=== PATIENT | male | born 1975 | race American Indian/Alaskan Native ===

== ENCOUNTER 2021-03-13 07:49 | Outpatient (REF) | payer MEDICARE, MEDICAID, SELFPAY ==
--- NOTE | 2021-03-13 08:00 | EEG_ITS ---
This is a 16-channel EEG with an EKG lead. The patient is reported awake and drowsy during the tracing. Background EEG rhythm is about 8 to 10 hertz, 5 to 30 microvolt posteriorly and lower amplitude fast anteriorly. Photic stimulation and hyperventilation were not performed. No definite sharp wave spikes or paroxysmal tendency asymmetry or asymmetry noted. Cardiac lead revealed tachycardia with a rate of about 90 per minute. IMPRESSION: No significant abnormality noted on EEG. MD BRIANNA Han/SUSI / [id number]
== END 2021-03-13 07:50 | disposition home or self-care (01) ==
LOC: HO.NEURO 07:49
PROVIDERS: PCP Hospitalist; Visit Provider Hospitalist
DX: Z13.858 Encounter for screening for other nervous system disorders (principal)
CPT/HCPCS: 95816

== ENCOUNTER → 2023-10-14 08:22 | Outpatient (BNVA) | payer MEDICARE, SELFPAY | PROVIDERS: PCP Hospitalist; Visit Provider Nurse Practitioner Family ==

== ENCOUNTER 2024-03-20 10:26 | Day surgery (SDC) | payer MEDICARE, MEDICAID, SELFPAY ==
[2024-03-16 13:11] VITALS: BMI 27.1
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
[2024-03-20 11:12] VITALS: BP 169/87; PULSE 90; RESP 18; TEMP 36.6; O2SAT 98
[2024-03-20 11:20] LABS: Glucose, Whole Blood 98 mg/dL (60-115)
[2024-03-20] MEDS: Lactated Ringers 1,000 ML 100 ML IVCONT (11:39)
[2024-03-20 11:53] LABS: Anion Gap 15 (12-20); Blood Urea Nitrogen 37 mg/dL (9-16); Calcium 9.3 mg/dL (8.4-10.2); Carbon Dioxide 18 mmol/L (22-29); Chloride 102 mmol/L (96-108); Creatinine Clr Calc Pharmacy 37.5; Estimated Glomerular Filt Rate 30; Glucose Fasting 104 mg/dL (60-99); Potassium 3.9 mmol/L (3.3-5.1); Sodium 131 mmol/L (135-145)
--- NOTE | 2024-03-20 12:48 | P.CONAN_ITS ---
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 Intracranial injury with loss of consciousness Polydipsia Type 2 diabetes mellitus Hyperlipidemia Chronic kidney disease (CKD) stage G3a/A1, moderately decreased glomerular filtration rate (GFR) between 45-59 mL/min/1.73 square meter and albuminuria creatinine ratio less than 30 mg/g Constipation Insomnia Schizoaffective disorder PTSD (post-traumatic stress disorder) Epilepsy Functional capacity: independent ambulation Family History Family history of problems with anesthesia: No Surgical History Surgical History Surgical history unknown History of Problems with Anesthesia: No Social History Social History Alcohol intake: former Patient Tobacco Use Status: Former Tobacco user Tobacco use type: Cigarette Substance Use Type: Crack/Cocaine and Marijuana Advance Directives: No Advance Directives Information Provided: Yes Meds Allergies Allergy/AdvReac Type Severity Reaction Status Date / Time No Known Allergies Allergy Verified 10/14/23 08:33 Active Medications: Current Medications Lactated Ringer's (Lr) 1,000 mls @ 100 mls/hr IVCONT .Q10H REHANA Last Admin: 03/20/24 11:39 Dose: 100 mls/hr Home Medications ?Medication ?Instructions ?Recorded ?Confirmed ?Last Taken ?Type amlodipine 10 mg tablet 10 mg PO DAILY 10/14/23 03/16/24 Unknown History atorvastatin 20 mg tablet 20 mg PO DAILY 10/14/23 03/16/24 Unknown History clonidine HCl 0.1 mg tablet 0.1 mg PO BID 10/14/23 03/20/24 03/20/24 07:00 History clozapine 100 mg tablet 100 mg PO DAILY 10/14/23 03/20/24 03/20/24 07:00 History diazepam 2 mg tablet 2 mg PO BID 10/14/23 03/20/24 03/20/24 07:00 History docusate sodium 100 mg capsule 100 mg PO DAILY 10/14/23 03/16/24 Unknown History (Colace) gemfibrozil 600 mg tablet 600 mg PO BID 10/14/23 03/16/24 Unknown History ketoconazole 2 % shampoo topical 10/14/23 Unknown History losartan 100 mg tablet 100 mg PO DAILY 10/14/23 03/16/24 Unknown History metformin 1,000 mg tablet 1,000 mg PO BID 10/14/23 03/16/24 Unknown History metoprolol tartrate 50 mg tablet 50 mg PO DAILY 10/14/23 03/16/24 Unknown History ondansetron HCl 4 mg tablet 4 mg PO Q8H PRN Nausea 10/14/23 03/16/24 Unknown History paliperidone palmitate 117 mg/0.75 117 mg IM Q30D 10/14/23 03/16/24 Unknown History mL intramuscular syringe (Invega Sustenna) pantoprazole 40 mg tablet,delayed 40 mg PO DAILY 10/14/23 03/16/24 Unknown History release sennosides 8.6 mg capsule (senna) 8.6 mg PO BEDTIME 10/14/23 03/16/24 Unknown History dapagliflozin propanediol 5 mg 5 mg PO DAILY 03/16/24 03/16/24 Unknown History tablet (Farxiga) Exam Height,Weight and Vital Signs: Height 5 ft 8 in Weight 80.739 kg Last Vital Signs Temp 97.8 F 03/20/24 11:12 Pulse 90 03/20/24 11:12 Resp 18 03/20/24 11:12 BP 169/87 H 03/20/24 11:12 Pulse Ox 98 03/20/24 11:12 O2 Del Method Room Air 03/20/24 11:12 Pertinent Lab Results Pertinent Lab Results: Laboratory Tests 03/20/24 03/20/24 11:13 11:17 Sodium 131 L Potassium 3.9 Chloride 102 Carbon Dioxide 18 L Anion Gap 15 BUN 37 H Creatinine 2.35 H Estim Creat Clear Calc 37.5 Estimated GFR 30 POC Glucose 98 Fasting Glucose 104 H Calcium 9.3 Airway Mallampati Class: II TM Dist: >3cm Neck ROM: Full Heart: RRR Lungs: CTA Assessment and Plan Assessment Anesthesia Assessment: Anesthesia Plan Discussed and Chart Reviewed Final Anesthetic Review Family History of Problems with Anesthesia: No History of Problems with Anesthesia: No NPO: Yes ASA Class: III Final Preanesthetic Review: Meds/Allgs Chart Reviewed, Consent Obtained/Reviewed and Anes Risks/Benef Reviewed Patient Risk: Low Procedure Risk: Low Anesthetic Plan Anesthetic Plan: MAC: Disposition: Standard PACU
--- NOTE | 2024-03-20 13:02 | P.HPSUR_ITS ---
Pre-Procedural Eval Section A - 24 Hr Update-Section A only Date of Service: 03/20/24 Section B - Complete if H&P > 30 days Chief Complaint: Encounter for screening for malignant neoplasm of Details of Present Illness: Intracranial injury with loss of consciousness Polydipsia Type 2 diabetes mellitus Hyperlipidemia Chronic kidney disease (CKD) stage G3a/A1, moderately decreased glomerular filtration rate (GFR) between 45-59 mL/min/1.73 square meter and albuminuria cr eatinine ratio less than 30 mg/g Constipation Insomnia Schizoaffective disorder PTSD (post-traumatic stress disorder) Epilepsy Allergies: Allergies Allergy/AdvReac Type Severity Reaction Status Date / Time No Known Allergies Allergy Verified 10/14/23 08:33 Review of Systems Review of Systems Comment: Limited ROS obtained Exam Surgical H&P Exam: Normal: HEENT, Normal: Heart, Normal: Lungs, Normal: Extremities, Normal: Abdomen, Normal: Skin and Normal: Neurological Plan Diagnosis/Plan: Unchanged I have reviewed the history and physical and performed a pertinent physical examination on my patient. No changes have occurred unless specified. Time Spent With Patient Time: Total time managing care of this patient today ____ minutes.
--- NOTE | 2024-03-20 13:28 | HO.ANESPROP2 ---
[facility] Past Medical History Medical History Resides in intermission coordinator care facility Intracranial injury with loss of consciousness Polydipsia Type 2 diabetes mellitus Hyperlipidemia Chronic kidney disease (CKD) stage G3a/A1, moderately decreased glomerular filtration rate (GFR) between 45-59 mL/min/1.73 square meter and albuminuria creatinine ratio less than 30 mg/g Constipation Insomnia Schizoaffective disorder PTSD (post-traumatic stress disorder) Epilepsy Functional capacity: independent ambulation Family History Family history of problems with anesthesia: No Surgical History Surgical History Surgical history unknown History of Problems with Anesthesia: No Social History Social History Alcohol intake: former Patient Tobacco Use Status: Former Tobacco user Tobacco use type: Cigarette Substance Use Type: Crack/Cocaine and Marijuana Advance Directives: No Advance Directives Information Provided: Yes Meds Allergies Allergy/AdvReac Type Severity Reaction Status Date / Time No Known Allergies Allergy Verified 10/14/23 08:33 Active Medications: Current Medications Lactated Ringer's (Lr) 1,000 mls @ 100 mls/hr IVCONT .Q10H REHANA Last Admin: 03/20/24 11:39 Dose: 100 mls/hr Naloxone HCl (Naloxone Hcl 0.4 Mg/Ml Vial) 0.04 mg IVPUSH Q5M PRN PRN Reason: Excessive sedation or RR < 8 Home Medications ?Medication ?Instructions ?Recorded ?Confirmed ?Last Taken ?Type amlodipine 10 mg tablet 10 mg PO DAILY 10/14/23 03/16/24 Unknown History atorvastatin 20 mg tablet 20 mg PO DAILY 10/14/23 03/16/24 Unknown History clonidine HCl 0.1 mg tablet 0.1 mg PO BID 10/14/23 03/20/24 03/20/24 07:00 History clozapine 100 mg tablet 100 mg PO DAILY 10/14/23 03/20/24 03/20/24 07:00 History diazepam 2 mg tablet 2 mg PO BID 10/14/23 03/20/24 03/20/24 07:00 History docusate sodium 100 mg capsule 100 mg PO DAILY 10/14/23 03/16/24 Unknown History (Colace) gemfibrozil 600 mg tablet 600 mg PO BID 10/14/23 03/16/24 Unknown History ketoconazole 2 % shampoo topical 10/14/23 Unknown History losartan 100 mg tablet 100 mg PO DAILY 10/14/23 03/16/24 Unknown History metformin 1,000 mg tablet 1,000 mg PO BID 10/14/23 03/16/24 Unknown History metoprolol tartrate 50 mg tablet 50 mg PO DAILY 10/14/23 03/16/24 Unknown History ondansetron HCl 4 mg tablet 4 mg PO Q8H PRN Nausea 10/14/23 03/16/24 Unknown History paliperidone palmitate 117 mg/0.75 117 mg IM Q30D 10/14/23 03/16/24 Unknown History mL intramuscular syringe (Invega Sustenna) pantoprazole 40 mg tablet,delayed 40 mg PO DAILY 10/14/23 03/16/24 Unknown History release sennosides 8.6 mg capsule (senna) 8.6 mg PO BEDTIME 10/14/23 03/16/24 Unknown History dapagliflozin propanediol 5 mg 5 mg PO DAILY 03/16/24 03/16/24 Unknown History tablet (Farxiga) Exam Height,Weight and Vital Signs: Height 5 ft 8 in Weight 80.739 kg Last Vital Signs Temp 97.8 F 03/20/24 11:12 Pulse 90 03/20/24 11:12 Resp 18 03/20/24 11:12 BP 169/87 H 03/20/24 11:12 Pulse Ox 98 03/20/24 11:12 O2 Del Method Room Air 03/20/24 11:12 Pertinent Lab Results Pertinent Lab Results: Laboratory Tests 03/20/24 03/20/24 11:13 11:17 Sodium 131 L Potassium 3.9 Chloride 102 Carbon Dioxide 18 L Anion Gap 15 BUN 37 H Creatinine 2.35 H Estim Creat Clear Calc 37.5 Estimated GFR 30 POC Glucose 98 Fasting Glucose 104 H Calcium 9.3 Airway Mallampati Class: III TM Dist: >3cm Neck ROM: Full Heart: RRR Lungs: CTA Assessment and Plan Assessment Anesthesia Assessment: Anesthesia Plan Discussed and Chart Reviewed Final Anesthetic Review Family History of Problems with Anesthesia: No History of Problems with Anesthesia: No ASA Class: III Final Preanesthetic Review: Meds/Allgs Chart Reviewed and Consent Obtained/Reviewed Patient Risk: Intermediate Procedure Risk: Low Anesthetic Plan Anesthetic Plan: MAC: Disposition: Standard PACU
--- NOTE | 2024-03-20 13:34 | HO.OPN-COLON ---
Colonoscopy Operative Note Operative Note Date of Service: 03/20/24 Narrative: Procedure: Colonoscopy Indication: Screening Endoscopist: Billie Carvalho MD Anesthesia Provider: Dr Iliana Abdul Anesthesia type: MAC Instrument: Olympus [id number]-[id number] Consent: Indication, risks vs benefits, and alternatives were discussed with the patient's guardian/father (Azucena) who gave informed consent over the phone to proceed. . EKG, pulse, pulse oximetry and blood pressure were monitored throughout the procedure. Please see anesthesia flowsheet. Procedure: The patient was brought to the procedure room and placed in the left lateral decubitus position. IV medications were administered by the anesthesia provider in attendance. A digital rectal exam was performed which was normal. A distal attachment cap was affixed to the tip of the colonoscope which was then inserted through the anus and advanced through the colon to the transverse colon at 70 cm. Solid stool in hepatic flexure precluded further advancement of the scope. The procedure was therefore terminated due to poor prep. The quality of the prep was BBPS: N/A+0+2 = inadequate Limitations: Poor prep. Findings: Mucosa: Copious liquid stool present in left colon which was irrigated and suctioned out. However as we advanced towards the right colon, stool became progressively more solid and the hepatic flexure could not be visualised at all. Impression: 1. Poor prep Recommendations: - Repeat colonoscopy within 6-12 months. - Father mentioned pt had solid diet yesterday and was upset to restrict to [facility] for dinner. Recommend reviewing instructions with facility staff and guardians for next colo in detail. Alternatively can also consider stool based CRC screening if pt finds it difficult to follow instructions.
[2024-03-20 13:40] VITALS: BP 174/87; PULSE 79; RESP 16; TEMP 36.4; O2SAT 97
[2024-03-20 13:55] VITALS: BP 159/91; PULSE 92; RESP 18; TEMP 36.2; O2SAT 98
--- NOTE | 2024-03-20 14:35 | HO.POSTANES ---
Post Anesthesia Evaluation Post Anesthesia Evaluation Date of Service: 03/20/24 Vital Signs: Vital Signs Temp Pulse Resp BP Pulse Ox O2 Del Method 03/20/24 13:55 97.2 F 03/20/24 13:55 92 18 159/91 H 98 Room Air 03/20/24 13:40 97.5 F 79 16 174/87 H 97 Room Air 03/20/24 11:12 97.8 F 90 18 169/87 H 98 Room Air Anesthesia: Monitored Mental Status: Awake Pain Control: Satisfactory Nausea/Vomiting: None Hydration: Adequate Anesthesia-Related Issues: No Anes. Related Issues
== END 2024-03-20 14:42 | disposition home or self-care (01) ==
PROVIDERS: Nurse Practitioner; PCP Hospitalist; Visit Provider Internal Medicine
PROC: 0DJD8ZZ Inspection of Lower Intestinal Tract, Via Natural or Artificial Opening Endoscopic (ICD-10-PCS; CPT 45378; principal; 2024-03-20 12:20)
DX: Z12.11 Encounter for screening for malignant neoplasm of colon (principal); E11.22 Type 2 diabetes mellitus with diabetic chronic kidney disease; I12.9 Hypertensive chronic kidney disease with stage 1 through stage 4 chronic kidney disease, or unspecified chronic kidney disease; N18.31 Chronic kidney disease, stage 3a; Z94.0 Kidney transplant status; E78.5 Hyperlipidemia, unspecified; Z87.891 Personal history of nicotine dependence; Z79.02 Long term (current) use of antithrombotics/antiplatelets; Z79.84 Long term (current) use of oral hypoglycemic drugs; Z79.899 Other long term (current) drug therapy
CPT/HCPCS: G0121; 36415; 80048; 82947; J2704

== ENCOUNTER → 2024-03-20 10:26 | Outpatient (BNV) | payer MEDICARE, MEDICAID, SELFPAY | PROVIDERS: PCP Hospitalist; Visit Provider Internal Medicine | DX: Z12.11 Encounter for screening for malignant neoplasm of colon (principal); Z91.199 Patient's noncompliance with other medical treatment and regimen due to unspecified reason | CPT/HCPCS: G0121 ==

== ENCOUNTER 2024-05-30 12:06 | Outpatient (AMB) | payer MEDICARE, MEDICAID, SELFPAY ==
[2024-05-30 12:04] VITALS: BP 100/54; PULSE 108; O2SAT 99; BMI 25.7
--- NOTE | 2024-05-30 12:04 | MHC.OFFVIS ---
Vital Signs 05/30/24 12:04 Height 5 ft 8 in Weight 168 lb 13.985 oz BMI 25.7 BP 100/54 L Blood Pressure Location Rt brachial Position Sitting Pulse 108 H Pulse Source Pulse Oximeter Pulse Oximetry (%) 99 Oxygen Delivery Method Room Air Intake Visit Reasons: Follow up post op Intake Note: ESTABLISHED PATIENT for s/p FUV. Chief Complaint; Constipation, difficulty having bowel movement. Pt reports very rare occurrence of reflux. No additional concerns reported per pt. Pt is confused as to why the prep did not go well. 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 Patient is on p.r.n. laxatives at [facility] and reports that for the most part he is moving his bowels without any issues. Denies any issues with anesthesia in the past.? Denies any history of sleep apnea.? No history infectious diseases in the past or present.? Not on any anticoagulation therapy.? No family history of CRC.? Patient denies melena, hematochezia, unintentional weight loss or ribbon like stools.? Discussed at length the pre-procedure,? prep, diet & medications as well as what to expect prior, during and after the procedure.?? Stressed the importance of good bowel prep.? Recommended the use of Vaseline or Calmoseptine OTC & baby wipes with bowel movements to promote comfort.? ?Patient verbalizes understanding and agrees to plan of care.? He was given the opportunity to ask questions and all questions answered.? We will see him after the procedure.? Medications New bisacodyl (Dulcolax (bisacodyl)) take 4 tabs at noon the day before your colonoscopy 20 mg (4 x 5 mg) PO ONCE 4 tabs 0RF 1 day Z12.11 polyethylene glycol 3350 (Miralax) As directed by gastroenterology department at [facility] 238 grams PO ONCE 238 grams 0RF Z12.11 COLONOSCOPY Findings: Mucosa: Copious liquid stool present in left colon which was irrigated and suctioned out. However as we advanced towards the right colon, stool became progressively more solid and the hepatic flexure could not be visualised at all. Impression: 1. Poor prep Recommendations: - Repeat colonoscopy within 6-12 months. - Father mentioned pt had solid diet yesterday and was upset to restrict to [facility] for dinner. Recommend reviewing instructions with facility staff and guardians for next colo in detail. Alternatively can also consider stool based CRC screening if pt finds it difficult to follow instructions. TODAY'S VISIT: Patient is here today for follow-up. Patient is accompanied by facility staff. Patient had suboptimal prep. Solid food consumption day before procedure. Patient apparently went out with his that and had food. Patient had no issues with anesthesia. Long discussion with patient and staff about sticking to clear liquid diet. Patient denies any GI concerning symptoms today. 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 Intracranial injury with loss of consciousness Polydipsia Type 2 diabetes mellitus Hyperlipidemia Chronic kidney disease (CKD) stage G3a/A1, moderately decreased glomerular filtration rate (GFR) between 45-59 mL/min/1.73 square meter and albuminuria creatinine ratio less than 30 mg/g Constipation Insomnia Schizoaffective disorder PTSD (post-traumatic stress disorder) Epilepsy Surgical History Surgical history unknown Social History Alcohol intake: former Patient Tobacco Use Status: Former Tobacco user Tobacco use type: Cigarette Substance Use Type: Crack/Cocaine and Marijuana Review of Systems Const Denies weight gain and Denies weight loss ENT Reports no additional complaints, Denies dysphagia and Denies odynophagia Card Reports no additional complaints Resp Reports no additional complaints GI Denies abdominal pain, Denies belching, Denies melena, Denies bloating, Denies change in bowel habits, Denies dysphagia, Denies excessive flatus, Denies dyspepsia, Denies heartburn, Denies diarrhea, Denies loose stools, Denies nausea, Denies odynophagia and Denies vomiting Reports no additional complaints Musc Reports no additional complaints Neuro Reports no additional complaints Psych Reports no additional complaints Endo Reports no additional complaints Physical Exam Const General: healthy appearing, no acute distress and well developed Nutritional Appearance: well nourished Orientation/consciousness: patient oriented x3 Resp Effort & Inspection: normal respiratory effort, able to speak in complete sentences, no tracheal deviation and symmetric chest movement Auscultation: clear to auscultation bilaterally Cardio Rate: regular rate GI Inspection: Yes normal to inspection and No distended Palpation (GI): Soft to palpation, not firm, nontender and No hepatosplenomegaly present Auscultation: normal bowel sounds General: Yes no CVA tenderness Back/Spine/Pelvis Back: no CVA tenderness Skin General skin exam: elasticity normal, turgor normal and dry skin Neuro General: patient oriented x3 Psych Appearance: grossly normal Speech and movement: Normal speech and movement present Attitude: cooperative Assessment & Plan Assessment & Plan (1) Screen for colon cancer: Code(s): Z12.11 - Encounter for screening for malignant neoplasm of colon Plan Long discussion with patient and staff. Specific instructions written to facility staff as well as to our surgical schedulers and nurse to remind patient and staff about clear liquid diet day before procedure. Patient had no issues with anesthesia. No history of sleep apnea. Not on any anticoagulation medication. Patient will be seen after the procedure. Both patient and staff are agreeable to plan of care and verbalizes understanding of instructions. They were given the opportunity to ask questions and all questions answered. Thank you for allowing me participate in his care Medications: Refilled bisacodyl (Dulcolax (bisacodyl)) take 4 tabs at noon the day before your colonoscopy 20 mg (4 x 5 mg) PO ONCE 1 day 4 tabs 0RF Z12.11 - Encounter for screening for malignant neoplasm of colon polyethylene glycol 3350 (Miralax) As directed by gastroenterology department at [facility] 238 grams PO ONCE 238 grams 0RF Z12.11 - Encounter for screening for malignant neoplasm of colon Coding Level of Care Code Est Pt Level 3 (44041) Diagnoses Screen for colon cancer Z12.11 Time Spent (min) 25 Comment 15 minutes spent with patient and additional 10 minutes spent reviewing his records
--- OUTSIDE RECORDS SUMMARY | 2024-05-30 14:26 | XMS_ITS | Encounter Summary ---
Author Organization [facility] Address [address] [place] [address] Care Team Providers Care Ceramist Name Role Phone Unavailable Primary Care Provider Unavailabl e Encounter Details Date Type Department Care Team (Late st Contact Info) Description 04/30/2024 Lab Requisition [facility] - Main Lab [address] [facility] [place] [address] Social History Tobacco Use Types Packs/Day Years Used Date Smoking Tobacco: Never Assessed Sex and Gender Information Value Date Recorded Sex Assigned at Not on file Gender Identity Not on file Sexual Orientation Not on file documented as of this encounter Plan of Treatment Not on file documented as of this encounter Visit Diagnoses Not on filedocumented in this encounter
--- OUTSIDE RECORDS SUMMARY | 2024-05-30 14:26 | XMS_ITS | Encounter Summary ---
Author Organization [employer] Address [address] [place] [address] Care Team Providers Care Phone Specialist Name Role Phone Unavailable Primary Care Provider Unavailabl e Encounter Details Date Type Department Care Team (Late st Contact Info) Description 04/23/2024 Lab Requisition [facility] - Main Lab [address] [facility] [place] [address] Franki Gaona MD [address] [place] [address] [address] [place], [place] Other fpc (current) drug therapy; Chronic kidney disease, stage 3a (CMS/HCC); Hypo-osmolality and hyponatremia; Type 2 diabetes mellitus with other specified complication (CMS/HCC) Social History Tobacco Use Types Packs/Day Years Used Date Smoking Tobacco: Never Assessed Sex and Gender Information Value Date Recorded Sex Assigned at Not on file Gender Identity Not on file Sexual Orientation Not on file documented as of this encounter Plan of Treatment Not on file documented as of this encounter Procedures Procedure Name Priority Date/Time Associated Diagnosis Comments CBC WITH AUTO DIFFERENTIAL Routine 04/23/2024 5:05 AM EST Other fpc (current) drug therapy Chronic kidney disease, stage 3a (CMS/HCC) Hypo-osmolality and hyponatremia Type 2 diabetes mellitus with other specified complication (CMS/HCC) CREATININE, SERUM Routine 04/23/2024 5:0 5 AM EST Other intermodal customer service (current) drug therapy Chronic kidney disease, stage 3a (CMS/HCC) Hypo-osmolality and hyponatremia Type 2 diabetes mellitus with other specified complication (CMS/HCC) CBC AND DIFFERENTIAL Routine 04/23/2024 5:05 AM EST Other fpc (current) drug therapy Chronic kidney disease, stage 3a (CMS/HCC) Hypo-osmolality and hyponatremia Type 2 diabetes mellitus with other specified complication (CMS/HCC) BUN Routine 04/23/2024 5:05 AM EST Other fpc (current) drug therapy Chronic kidney disease, stage 3a (CMS/HCC) Hypo-osmolality and hyponatremia Type 2 diabetes mellitus with other specified complication (CMS/HCC) ELECTROLYTE PANEL Routine 04/23/2024 5:0 5 AM EST Other intermodal customer service (current) drug therapy Chronic kidney disease, stage 3a (CMS/HCC) Hypo-osmolality and hyponatremia Type 2 diabetes mellitus with other specified complication (CMS/HCC) documented in this encounter Results * (ABNORMAL) CBC auto differential (04/23/2024 5:05 AM EST) WBC 7.6 4.8 - 10.8 K/mcL LAB HEMETOLOGY METHOD 04/23/2024 6:[address] [facility] RBC 3.30(L) 4.50 - 5.50 M/mcL LAB HEMETOLOGY METHOD 04/23/2024 6:[address] [facility] Hemoglobin 8.8(L) 13.5 - 17.5 g/dL LAB HEMETOLOGY METHOD 04/23/2024 6:[address] [facility] Hematocrit 27.8(L) 42.0 - 54.0 % LAB HEMETOLOGY METHOD 04/23/2024 6:[address] [facility] MCV 83.2 79.0 - 98.0 FL LAB HEMETOLOGY METHOD 04/23/2024 6:[address] [facility] MCH 26.3(L) 27.0 - 32.0 pcg LAB HEMETOLOGY METHOD 04/23/2024 6:[address] [facility] MCHC 31.7(L) 32.0 - 37.0 g/dL LAB HEMETOLOGY METHOD 04/23/2024 6:[address] [facility] RDW 15.1(H) 11.0 - 15.0 % LAB HEMETOLOGY METHOD 04/23/2024 6:[address] [facility] Platelets 304 130 - 400 K/mcL LAB HEMETOLOGY METHOD 04/23/2024 6:[address] [facility] MPV 11.6(H) 7.0 - 11.0 FL LAB HEMETOLOGY METHOD 04/23/2024 6:[address] [facility] NRBC 0.0 <1.0 % LAB HEMETOLOGY METHOD 04/23/2024 6:[address] [facility] NRBC Absolute 0.00 <0.10 K/mcL LAB HEMETOLOGY METHOD 04/23/2024 6:[address] [facility] Neutrophils Relative 61.3 % LAB HEMETOLOGY METHOD 04/23/2024 6:[address] [facility] Lymphocytes Relative 24.6 % LAB HEMETOLOGY METHOD 04/23/2024 6:[address] [facility] Monocytes Relative 7.5 % LAB HEMETOLOGY METHOD 04/23/2024 6:[address] [facility] Eosinophils Relative 6.0 % LAB HEMETOLOGY METHOD 04/23/2024 6:[address] [facility] Basophils Relative 0.3 % LAB HEMETOLOGY METHOD 04/23/2024 6:[address] [facility] Immature Granulocytes Relative 0.3 % LAB HEMETOLOGY METHOD 04/23/2024 6:[address] [facility] Neutrophils Absolute 4.68 1.50 - 7.00 K/mcL LAB HEMETOLOGY METHOD 04/23/2024 6:[address] [facility] Lymphocytes Absolute 1.88 1.00 - 5.00 K/mcL LAB HEMETOLOGY METHOD 04/23/2024 6:[address] [facility] Monocytes Absolute 0.57 0.20 - 1.00 K/mcL LAB HEMETOLOGY METHOD 04/23/2024 6:[address] [facility] Eosinophils Absolute 0.46 0.00 - 0.50 K/mcL LAB HEMETOLOGY METHOD 04/23/2024 6:31 AM EST [facility] Basophils Absolute 0.02 0.00 - 0.20 K/[facility] LAB HEMETOLOGY METHOD 04/23/2024 6:[address] [facility] Immature Granulocytes Absolute 0.02 0.00 - 0.03 K/mcL LAB HEMETOLOGY METHOD 04/23/2024 6:31 AM EST [facility] Blood Venous blood specimen / Unknown 04/23/2024 5:05 AM EST 04/23/2024 6:07 AM EST Franki Gaona MD LAB BLOOD ORDERABLES Performing Organization Address [facility]/ZIP Co de Phone Number [facility] [address] [place] [address], * (ABNORMAL) Creatinine (04/23/2024 5:05 AM EST) Creatinine 2.48(H) 0.70 - 1.30 mg/dL LAB CHEMISTRY METHOD 04/23/2024 6:48 AM EST [facility] eGFR 31(L) >=60 mL/min/1. 73m2 LAB CHEMISTRY METHOD 04/23/2024 6:48 AM EST [facility] Comment:Calculation based on the??Chronic Kidney Disease Epidemiology Collaboration (CKD-EPI) equation refit??without adjustment for race. Blood Venous blood specimen / Unknown 04/23/2024 5:05 AM EST 04/23/2024 6:07 AM EST Franki Gaona MD LAB BLOOD ORDERABLES Performing Organization Address City/[facility]/ZIP Co de Phone Number [facility] [address] [place] [address], * (ABNORMAL) BUN (04/23/2024 5:05 AM EST) BUN 62(H) 5 - 25 mg/dL LAB CHEMISTRY METHOD 04/23/2024 7:00 AM EST [facility] Blood Venous blood specimen / Unknown 04/23/2024 5:05 AM EST 04/23/2024 6:07 AM EST Franki Gaona MD LAB BLOOD ORDERABLES [facility] [address] [place] [address], [place] [phone] * (ABNORMAL) Electrolyte panel (04/23/2024 5:05 AM EST) Sodium 140 133 - 145 mmol/L LAB CHEMISTRY METHOD 04/23/2024 6:[address] [facility] Potassium 4.8 3.5 - 5.5 mmol/L LAB CHEMISTRY METHOD 04/23/2024 6:[address] [facility] Chloride 112(H) 96 - 110 mmol/L LAB CHEMISTRY METHOD 04/23/2024 6:[address] [facility] CO2 23 21 - 32 mmol/L LAB CHEMISTRY METHOD 04/23/2024 6:[address] [facility] Anion Gap 5 3 - 11 LAB CHEMISTRY METHOD 04/23/2024 6:[address] [facility] Blood Venous blood specimen / Unknown 04/23/2024 5:05 AM EST 04/23/2024 6:07 AM EST Franki Gaona MD LAB BLOOD ORDERABLES [facility] [address] [place] [address], [place] [phone] documented in this encounter Visit Diagnoses Diagnosis Other fpc (current) drug therapy Chronic kidney disease, stage 3a (CMS/HCC) Hypo-osmolality and hyponatremia Type 2 diabetes mellitus with other specified complication (CMS/HCC) documented in this encounter
--- OUTSIDE RECORDS SUMMARY | 2024-05-30 14:26 | XMS_ITS | Encounter Summary ---
Author Organization [employer] Address [address] [place] [address] Care Team Providers Care Brake Repair Mechanic Name Role Phone Unavailable Primary Care Provider Unavailabl e Encounter Details Date Type Department Care Team (Late st Contact Info) Description 05/28/2024 Lab Requisition [facility] - Main Lab [address] [facility] [place] [address] Franki Gaona MD [address] [place] [address] Dr [address] [place], [place] Other nursing home (current) drug therapy Social History Tobacco Use Types Packs/Day Years [...] Diagnosis Comments CBC WITH AUTO DIFFERENTIAL Routine 05/28/2024 7:08 AM EST Other nursing home (current) drug therapy CBC AND DIFFERENTIAL Routine 05/28/2024 7:08 AM EST Other nursing home (current) drug therapy HEMOGLOBIN Routine 05/28/2024 7:08 AM EST Other nursing home (current) drug therapy documented in this encounter Results * (ABNORMAL) CBC auto differential (05/28/2024 7:08 AM EST) WBC 8.8 4.8 - 10.8 K/[facility] LAB HEMETOLOGY METHOD 05/28/2024 9:09 AM EST [facility] RBC 3.60(L) 4.50 - 5.50 M/[facility] LAB HEMETOLOGY METHOD 05/28/2024 9:09 AM EST [facility] Hemoglobin 9.2(L) 13.5 - 17.5 g/dL LAB HEMETOLOGY METHOD 05/28/2024 9:09 AM [facility] Hematocrit 30.4(L) 42.0 - 54.0 % LAB HEMETOLOGY METHOD 05/28/2024 9:09 AM [facility] MCV 85.4 79.0 - 98.0 FL LAB HEMETOLOGY METHOD 05/28/2024 9:09 AM [facility] MCH 25.8(L) 27.0 - 32.0 pcg LAB HEMETOLOGY METHOD 05/28/2024 9:09 AM [facility] MCHC 30.3(L) 32.0 - 37.0 g/dL LAB HEMETOLOGY METHOD 05/28/2024 9:09 AM [facility] RDW 16.2(H) 11.0 - 15.0 % LAB HEMETOLOGY METHOD 05/28/2024 9:09 AM [facility] Platelets 348 130 - 400 K/mcL LAB HEMETOLOGY METHOD 05/28/2024 9:09 AM [facility] MPV 11.0 7.0 - 11.0 FL LAB HEMETOLOGY METHOD 05/28/2024 9:09 AM [facility] NRBC 0.0 <1.0 % LAB HEMETOLOGY METHOD 05/28/2024 9:09 AM [facility] NRBC Absolute 0.00 <0.10 K/mcL LAB HEMETOLOGY METHOD 05/28/2024 9:09 AM [facility] Neutrophils Relative 70.5 % LAB HEMETOLOGY METHOD 05/28/2024 9:09 AM [facility] Lymphocytes Relative 19.2 % LAB HEMETOLOGY METHOD 05/28/2024 9:09 AM [facility] Monocytes Relative 6.6 % LAB HEMETOLOGY METHOD 05/28/2024 9:09 AM EST [facility] Eosinophils Relative 2.7 % LAB HEMETOLOGY METHOD 05/28/2024 9:09 AM [facility] Basophils Relative 0.3 % LAB HEMETOLOGY METHOD 05/28/2024 9:09 AM [facility] Immature Granulocytes Relative 0.7 % LAB HEMETOLOGY METHOD 05/28/2024 9:09 AM [facility] Neutrophils Absolute 6.21 1.50 - 7.00 K/mcL LAB HEMETOLOGY METHOD 05/28/2024 9:09 AM [facility] Lymphocytes Absolute 1.69 1.00 - 5.00 K/mcL LAB HEMETOLOGY METHOD 05/28/2024 9:09 AM [facility] Monocytes Absolute 0.58 0.20 - 1.00 K/mcL LAB HEMETOLOGY METHOD 05/28/2024 9:09 AM [facility] Eosinophils Absolute 0.24 0.00 - 0.50 K/mcL LAB HEMETOLOGY METHOD 05/28/2024 9:09 AM [facility] Basophils Absolute 0.03 0.00 - 0.20 K/mcL LAB HEMETOLOGY METHOD 05/28/2024 9:09 AM [facility] Immature Granulocytes Absolute 0.06(H) 0.00 - 0.03 K/mcL LAB HEMETOLOGY METHOD 05/28/2024 9:09 AM [facility] Blood Venous blood specimen / Unknown 05/28/2024 7:08 AM EST 05/28/2024 8:41 AM EST Franki Gaona MD LAB BLOOD ORDERABLES [facility] [address] [place] [address], * (ABNORMAL) Hemoglobin (05/28/2024 7:08 AM EST) Hemoglobin 9.2(L) 13.5 - 17.5 g/dL LAB HEMETOLOGY METHOD 05/28/2024 9:09 AM EST [facility] Blood Venous blood specimen / Unknown 05/28/2024 7:08 AM EST 05/28/2024 8:41 AM EST Franki Gaona MD LAB BLOOD ORDERABLES [facility] [address] [place] [address], documented in this encounter Visit Diagnoses Diagnosis Other director long term care (current) drug therapy documented in this encounter
--- OUTSIDE RECORDS SUMMARY | 2024-05-30 14:26 | XMS_ITS | Clinical Summary ---
Author Organization [facility] Address [address] [address] Phone Care Team Providers Care Potato Grader Name Role Phone CandelariaFranki DO Primary Care Provider [phone] Allergies No known active allergies Medications acetaminophen (TYLENOL) 325 MG tablet Take 650 mg by mouth every 6 (six) hours if needed for mild pain Active amLODIPine (NORVASC) 10 MG tablet Take 10 mg by mouth 1 (one) time each day Active atorvastatin (LIPITOR) 20 MG tablet Take 20 mg by mouth 1 (one) time each day Active cloZAPine (CLOZARIL) 100 MG tablet Take 50 mg by mouth 1 (one) time each day Active docusate sodium (COLACE) 100 MG capsule Take 100 mg by mouth in the morning and 100 mg in the evening. Active diazePAM (VALIUM) 2 MG tablet Take 2 mg by mouth every 8 (eight) hours if needed for anxiety Active Dapagliflozin Propanediol (Farxiga) 10 MG tablet Take 10 mg by mouth 1 (one) time each day in the morning Active gemfibrozil (LOPID) 600 MG tablet Take 600 mg by mouth in the morning and 600 mg in the evening. Take before meals. Active metFORMIN (GLUCOPHAGE) 1000 MG tablet Take 1,000 mg by mouth in the morning and 1,000 mg in the evening. Take with meals. Active Multiple Vitamin (multivitamin) capsule Take 1 capsule by mouth 1 (one) time each day Active ondansetron (ZOFRAN) 4 MG tablet Take 4 mg by mouth every 8 (eight) hours if needed for nausea or vomiting Active pantoprazole (PROTONIX) 40 MG EC tablet Take 40 mg by mouth 1 (one) time each day before breakfast Do not crush, chew, or split. Active senna (SENOKOT) 8.6 MG tablet Take 1 tablet by mouth 1 (one) time each day Active Cholecalciferol (Vitamin D) 25 MCG (1000 UT) tablet Take 1 tablet by mouth 1 (one) time each day Active cloZAPine (CLOZARIL) 200 MG tablet Take by mouth 1 (one) time each day Active losartan (COZAAR) 100 MG tablet Take 100 mg by mouth 1 (one) time each day Active metoprolol tartrate (LOPRESSOR) 50 MG tablet Take 50 mg by mouth 1 (one) time each day Active Urea powderIndications :Hyposmolality and/or hyponatremia 15 g in the morning and 15 g in the evening. Hyponatremia. 900 g 11 4 09/05/19 25 Active Invega Sustenna 117 MG/0.75ML suspension prefilled syringe every 30 (thirty) days 4 Active cloNIDine ([id number]-[id number]-6) 0.3 MG/24HR patch weeklyIndications :Stage 3a chronic kidney disease (HCC),Hypertensiv e chronic kidney disease,Anemia in chronic kidney disease,Renal artery stenosis (HCC),Hyposmolali ty and/or hyponatremia Place 1 patch on the skin 1 (one) time per week 4 patch 11 4 04/09/20 25 Active ferrous sulfate (Fe Tabs) 325 (65 Fe) MG EC tabletIndications :Other iron deficiency anemia Take 1 tablet (325 mg total) by mouth in the morning and 1 tablet (325 mg total) in the evening. Take with meals. Do not crush, chew, or split.. 60 tablet 11 4 04/18/20 25 Active Active Problems Problem Noted Date Diagnosed Date Iron deficiency anemia, not otherwise specified 04/18/2024 Anemia in chronic kidney disease 11/07/2023 Renal artery stenosis 11/07/2023 Stage 3a chronic kidney disease 01/17/2023 Hypertensive chronic kidney disease 01/17/2023 Hyposmolality and/or hyponatremia Encounters Date Type Department Care Team Description 05/16/2024 Orders Only [facility] [address] [place] [address] Charlene Hand ARNP Iron deficiency anemia, not otherwise specified; Stage 3a chronic kidney disease (HCC) 05/06/2024 Office Communication [facility] [address] [address] Keenan Fleming MD 04/17/2024 Telephone [facility] [address] [address] Linda Hale LAB RESULTS (NURSE AT [facility] WANTED TO LET YOU KNOW ABOUT 04/16/2024 LABS IRON PANEL WAS 41 FERRITIN WAS 40 IRON SATURATION WAS 12 TIBC WAS 353 AND HEMOGLOBIN FROM 04/17/2024 WAS 8.7) 04/09/2024 10:15 AM EST Office Visit [facility] [address] [address] Charlene Hand ARNP Stage 3a chronic kidney disease (HCC) (Primary Dx); Hypertensive chronic kidney disease; Anemia in chronic kidney disease; Renal artery stenosis (HCC); Hyposmolality and/or hyponatremia from Last 3 Months Social History Tobacco Use Types Packs/Day Years Used Date Smoking Tobacco: Every Day Cigarettes Smokeless Tobacco: Never Tobacco Cessation:Ready to Q uit: Not Asked; Counseling Given: No Alcohol Use Standard Drinks/Week Comments Not Currently 0 (1 standard drink = 0.6 oz pur e alcohol) Sex and Gender Information Value Date Recorded Sex Assigned at Not on file Legal Sex Male 9:52 AM EDT Gender Identity Not on file Sexual Orientation Not on file Last Filed Vital Signs Vital Sign Reading Time Taken Comments Blood Pressure 150/80 04/09/2024 10:36 AM EST Pulse 106 04/09/2024 10:36 AM EST Temperature - - Respiratory Rate - - Oxygen Saturation 98% 04/09/2024 10:36 AM EST Inhaled Oxygen Concentration - - Weight 78.5 kg (173 lb) 04/09/2024 10:36 AM EST Height - - Body Mass Index - - Plan of Treatment Upcoming Encounters Date Type Department Care Team (Late st Contact Info) Description 06/11/2024 10:15 AM EST Office Visit [facility]. [address] [address] HandCharleneAUDI [address] [address] Health Maintenance Due Date Last Done Comments Pneumococcal Vaccine: Pediat rics (0 to 5 Years) and At-Risk Patients (6 to 64 Years) (1 of 2 - PCV) 1982 Hepatitis B Vaccine (1 of 3 - 19+ 3-dose series) 08/29 Diabetes: Hemoglobin A1C 01/17/2023 Diabetes: Ophthalmology Exam 01/17/2023 Diabetes: Pedal Pulse Checked 01/17/2023 Diabetes: Sensory Foot Exam 01/17/2023 Diabetes: Visual Foot Exam 01/17/2023 Influenza Vaccine (#1) 2024 Procedures Procedure Name Priority Date/Time Associated Diagnosis Comments EXT RESULT ENTRY Routine 04/03/2024 from Last 3 Months Results * (ABNORMAL) EXT RESULT ENTRY (04/03/2024) WBC 5.7 3.3 - 10.0 10*3/ML Red Blood Cell Count 3.10 Hemoglobin 8.3(A) 13.5 - 17.5 Hematocrit 25.1(A) 41.0 - 53.0 Platelets 282 150 - 399 10*3/UL Sodium 137 137 - 147 Potassium 4.6 3.4 - 5.5 Carbon Dioxide 20 mmol/L Anion Gap 9 <=30 MMOL/L Glucose 77 60 - 200 BUN 25(A) 4 - 21 mg/dL Creatinine 2.23(A) 0.60 - 1.30 mg/dL Calcium 9.4 8.7 - 10.7 mg/dL eGFR Non-Afr English 36 04/03/2024 Historical Provider LAB BLOOD ORDERABLES Aaliyah l Result from Last 3 Months Insurance MEDICARE MEDICARE Care Teams Potato Grader Relationship Specialty Start Date End Date Franki Gaona DO [address] [place] [address] [address] [place], [place] PCP - General Internal Medicine 01/17/23
--- OUTSIDE RECORDS SUMMARY | 2024-05-30 14:26 | XMS_ITS | Encounter Summary ---
Author Organization [facility] Address [address] [address] Phone Care Team Providers Care Embedded Linux Developer Name Role Phone Franki Gaona DO Primary Care Provider [phone] Encounter Details Date Type Department Care Team (Late st Contact Info) Description 05/16/2024 Orders Only [facility] [address] [address] Charlene Hand ARNP [address] [address] Iron deficiency anemia, not otherwise specified; Stage 3a chronic kidney disease (HCC) Social History Tobacco Use Types Packs/Day Years Used Date Smoking Tobacco: Every Day Cigarettes Smokeless Tobacco: Never Alcohol Use Standard Drinks/Week Comments Not Currently 0 (1 standard drink = 0.6 oz pur e alcohol) Sex and Gender Information Value Date Recorded Sex Assigned at Not on file Legal Sex Male 9:52 AM EDT Gender Identity Not on file Sexual Orientation Not on file documented as of this encounter Plan of Treatment Upcoming Encounters Date Type Department Care Team (Late st Contact Info) Description 06/11/2024 10:15 AM EST Office Visit [facility] [address] [address] Charlene Hand ARNP [address] [address] documented as of this encounter Visit Diagnoses Diagnosis Iron deficiency anemia, not otherwise specified Stage 3a chronic kidney disease (HCC) documented in this encounter Care Teams Embedded Linux Developer Relationship Specialty Start Date End Date Franki Gaona DO [address] [place], [place] PCP - General Internal Medicine 01/17/23 documented as of this encounter
--- OUTSIDE RECORDS SUMMARY | 2024-05-30 14:26 | XMS_ITS | Encounter Summary ---
Author Organization [employer] Address [address] [place] [address] Care Team Providers Care Control Systems Designer Name Role Phone Unavailable Primary Care Provider Unavailabl e Encounter Details Date Type Department Care Team (Late st Contact Info) Description 04/30/[address] [facility] - Main Lab [address] [facility] [place] [address] Franki Gaona MD [address] [place] [address] [address] [place], [place] Chronic kidney disease, stage 3a (CMS/HCC); Type 2 diabetes mellitus with other specified complication (CMS/HCC); Hypo-osmolality and hyponatremia Social History Tobacco Use Types Packs/Day Years [...] Diagnosis Comments CBC WITH AUTO DIFFERENTIAL Routine 04/30/2024 5:55 AM EST Chronic kidney disease, stage 3a (CMS/HCC) Type 2 diabetes mellitus with other specified complication (CMS/HCC) Hypo-osmolality and hyponatremia LAVENDER - EDTA Routine 04/30/2024 5:55 AM EST Chronic kidney disease, stage 3a (CMS/HCC) Type 2 diabetes mellitus with other specified complication (CMS/HCC) Hypo-osmolality and hyponatremia CREATININE, SERUM Routine 04/30/2024 5:5 5 AM EST Chronic kidney disease, stage 3a (CMS/HCC) Type 2 diabetes mellitus with other specified complication (CMS/HCC) Hypo-osmolality and hyponatremia CBC AND DIFFERENTIAL Routine 04/30/2024 5:55 AM EST Chronic kidney disease, stage 3a (CMS/HCC) Type 2 diabetes mellitus with other specified complication (CMS/HCC) Hypo-osmolality and hyponatremia BUN Routine 04/30/2024 5:55 AM EST Chronic kidney disease, stage 3a (CMS/HCC) Type 2 diabetes mellitus with other specified complication (CMS/HCC) Hypo-osmolality and hyponatremia HEMOGLOBIN A1C Routine 04/30/2024 5:55 AM EST Chronic kidney disease, stage 3a (CMS/HCC) Type 2 diabetes mellitus with other specified complication (CMS/HCC) Hypo-osmolality and hyponatremia ELECTROLYTE PANEL Routine 04/30/2024 5:5 5 AM EST Chronic kidney disease, stage 3a (CMS/HCC) Type 2 diabetes mellitus with other specified complication (CMS/HCC) Hypo-osmolality and hyponatremia documented in this encounter Results * Lavender tube (04/30/2024 5:55 AM EST) Pathologist [facility] [place] Extra Tube Hold for add-ons. 04/30/2024 8:01 AM EST [facility] Comment:Auto resulted. Blood Venous blood specimen / Unknown 04/30/2024 5:55 AM EST 04/30/2024 6:32 AM EST Franki Gaona MD LAB BLOOD ORDERABLES [facility] [address] [place] [address], * (ABNORMAL) CBC auto differential (04/30/2024 5:55 AM EST) Pathologist [facility] [place] WBC 6.7 4.8 - 10.8 K/mcL LAB HEMETOLOGY METHOD 04/30/2024 7:17 AM EST [facility] RBC 3.10(L) 4.50 - 5.50 M/mcL LAB HEMETOLOGY METHOD 04/30/2024 7:17 AM EST [facility] Hemoglobin 8.0(L) 13.5 - 17.5 g/dL LAB HEMETOLOGY METHOD 04/30/2024 7:17 AM [facility] Hematocrit 25.3(L) 42.0 - 54.0 % LAB HEMETOLOGY METHOD 04/30/2024 7:17 AM [facility] MCV 82.4 79.0 - 98.0 FL LAB HEMETOLOGY METHOD 04/30/2024 7:17 AM [facility] MCH 26.1(L) 27.0 - 32.0 pcg LAB HEMETOLOGY METHOD 04/30/2024 7:17 AM [facility] MCHC 31.6(L) 32.0 - 37.0 g/dL LAB HEMETOLOGY METHOD 04/30/2024 7:17 AM [facility] RDW 14.6 11.0 - 15.0 % LAB HEMETOLOGY METHOD 04/30/2024 7:17 AM [facility] Platelets 266 130 - 400 K/mcL LAB HEMETOLOGY METHOD 04/30/2024 7:17 AM [facility] MPV 11.9(H) 7.0 - 11.0 FL LAB HEMETOLOGY METHOD 04/30/2024 7:17 AM [facility] NRBC 0.0 <1.0 % LAB HEMETOLOGY METHOD 04/30/2024 7:17 AM [facility] NRBC Absolute 0.00 <0.10 K/mcL LAB HEMETOLOGY METHOD 04/30/2024 7:17 AM [facility] Neutrophils Relative 60.8 % LAB HEMETOLOGY METHOD 04/30/2024 7:17 AM [facility] Lymphocytes Relative 23.9 % LAB HEMETOLOGY METHOD 04/30/2024 7:17 AM [facility] Monocytes Relative 6.8 % LAB HEMETOLOGY METHOD 04/30/2024 7:17 AM [facility] Eosinophils Relative 7.8 % LAB HEMETOLOGY METHOD 04/30/2024 7:17 AM EST [facility] Basophils Relative 0.5 % LAB HEMETOLOGY METHOD 04/30/2024 7:17 AM [facility] Immature Granulocytes Relative 0.2 % LAB HEMETOLOGY METHOD 04/30/2024 7:17 AM EST [facility] Neutrophils Absolute 4.06 1.50 - 7.00 K/mcL LAB HEMETOLOGY METHOD 04/30/2024 7:17 AM EST [facility] Lymphocytes Absolute 1.59 1.00 - 5.00 K/mcL LAB HEMETOLOGY METHOD 04/30/2024 7:17 AM EST [facility] Monocytes Absolute 0.45 0.20 - 1.00 K/mcL LAB HEMETOLOGY METHOD 04/30/2024 7:17 AM EST [facility] Eosinophils Absolute 0.52(H) 0.00 - 0.50 K/mcL LAB HEMETOLOGY METHOD 04/30/2024 7:17 AM EST [facility] Basophils Absolute 0.03 0.00 - 0.20 K/mcL LAB HEMETOLOGY METHOD 04/30/2024 7:17 AM [facility] Immature Granulocytes Absolute 0.01 0.00 - 0.03 K/mcL LAB HEMETOLOGY METHOD 04/30/2024 7:17 AM EST [facility] Blood Venous blood specimen / Unknown 04/30/2024 5:55 AM EST 04/30/2024 6:32 AM EST Franki Gaona MD LAB BLOOD ORDERABLES [facility] [address] [place] [address], * Hemoglobin A1c (04/30/2024 5:55 AM EST) Hemoglobin A1C 6.2 <6.5 % LAB CHEMISTRY METHOD 04/30/2024 9:11 AM EST [facility] Mean Bld Glu Estim. 131 mg/dL LAB CHEMISTRY METHOD 04/30/2024 9:11 AM EST [facility] Blood Venous blood specimen / Unknown 04/30/2024 5:55 AM EST 04/30/2024 6:32 AM EST Franki Gaona MD LAB BLOOD ORDERABLES Performing Organization Address City/[facility]/ZIP Co de Phone Number [facility] [address] [place] [address], * (ABNORMAL) BUN (04/30/2024 5:55 AM EST) BUN 79(H) 5 - 25 mg/dL LAB CHEMISTRY METHOD 04/30/2024 7:17 AM EST [facility] Blood Venous blood specimen / Unknown 04/30/2024 5:55 AM EST 04/30/2024 6:32 AM EST Franki Gaona MD LAB BLOOD ORDERABLES Performing Organization Address [facility] Co de Phone Number [facility] [address] [place] [address], [place] [phone] * (ABNORMAL) Creatinine (04/30/2024 5:55 AM EST) Creatinine 2.64(H) 0.70 - 1.30 mg/dL LAB CHEMISTRY METHOD 04/30/2024 7:07 AM EST [facility] eGFR 29(L) >=60 mL/min/1. 73m2 LAB CHEMISTRY METHOD 04/30/2024 7:07 AM EST [facility] Comment:Calculation based on the??Chronic Kidney Disease Epidemiology Collaboration (CKD-EPI) equation refit??without adjustment for race. Blood Venous blood specimen / Unknown 04/30/2024 5:55 AM EST 04/30/2024 6:32 AM EST Franki Gaona MD LAB BLOOD ORDERABLES [facility] [address] [place] [address], [place] [phone] * (ABNORMAL) Electrolyte panel (04/30/2024 5:55 AM EST) Sodium 141 133 - 145 mmol/L LAB CHEMISTRY METHOD 04/30/2024 7:07 AM EST [facility] Potassium 4.4 3.5 - 5.5 mmol/L LAB CHEMISTRY METHOD 04/30/2024 7:07 AM EST [facility] Chloride 113(H) 96 - 110 mmol/L LAB CHEMISTRY METHOD 04/30/2024 7:07 AM EST [facility] CO2 22 21 - 32 mmol/L LAB CHEMISTRY METHOD 04/30/2024 7:07 AM EST [facility] Anion Gap 6 3 - 11 LAB CHEMISTRY METHOD 04/30/2024 7:07 AM EST [facility] Blood Venous blood specimen / Unknown 04/30/2024 5:55 AM EST 04/30/2024 6:32 AM EST Franki Gaona MD LAB BLOOD ORDERABLES Performing Organization Address City/[facility]/ZIP Co de Phone Number [facility] [address] [place] [address], [place] [phone] documented in this encounter Visit Diagnoses Diagnosis Chronic kidney disease, stage 3a (CMS/HCC) Type 2 diabetes mellitus with other specified complication (CMS/HCC) Hypo-osmolality and hyponatremia documented in this encounter
--- OUTSIDE RECORDS SUMMARY | 2024-05-30 14:27 | XMS_ITS | Encounter Summary ---
Author Organization [employer] Address [address] [place] [address] Care Team Providers Care Web Developer Programmer Name Role Phone Unavailable Primary Care Provider Unavailabl e Encounter Details Date Type Department Care Team (Late st Contact Info) Description 04/03/2024 Lab Requisition [facility] - Main Lab [address] [place] [address] Franki Gaona MD [address] [place] [address] [address] [place], [place] Chronic kidney disease, stage 4 (severe) (CMS/HCC); Type 2 diabetes mellitus without complications (CMS/HCC) Social History Tobacco Use Types Packs/Day Years Used Date Smoking Tobacco: Never Assessed Sex and Gender Information Value Date Recorded Sex Assigned at Not on file Gender Identity Not on file Sexual Orientation Not on file documented as of this encounter Plan of Treatment Not on file documented as of this encounter Procedures Procedure Name Priority Date/Time Associated Diagnosis Comments PREALBUMIN Routine 04/03/2024 6:00 AM EST Chronic kidney disease, stage 4 (severe) (CMS/HCC) Type 2 diabetes mellitus without complications (CMS/HCC) COMPREHENSIVE METABOLIC PANEL Routine 04/03/2024 6:00 AM EST Chronic kidney disease, stage 4 (severe) (CMS/HCC) Type 2 diabetes mellitus without complications (CMS/HCC) documented in this encounter Results * (ABNORMAL) Prealbumin (04/03/2024 6:00 AM EST) Prealbumin 17(L) 18 - 45 mg/dL LAB CHEMISTRY METHOD 04/03/2024 7:28 AM EST [facility] Blood Venous blood specimen / Unknown 04/03/2024 6:00 AM EST 04/03/2024 6:45 AM EST Franki Snow MD LAB BLOOD ORDERABLES [facility] [address] [place] [address], * (ABNORMAL) Comprehensive metabolic panel (04/03/2024 6:00 AM EST) Sodium 137 133 - 145 mmol/L LAB CHEMISTRY METHOD 04/03/2024 7:28 AM [facility] Potassium 4.6 3.5 - 5.5 mmol/L LAB CHEMISTRY METHOD 04/03/2024 7:28 AM [facility] Chloride 108 96 - 110 mmol/L LAB CHEMISTRY METHOD 04/03/2024 7:28 AM [facility] CO2 20(L) 21 - 32 mmol/L LAB CHEMISTRY METHOD 04/03/2024 7:28 AM [facility] Anion Gap 9 3 - 11 LAB CHEMISTRY METHOD 04/03/2024 7:28 AM [facility] Glucose 77 70 - 100 mg/dL LAB CHEMISTRY METHOD 04/03/2024 7:28 AM [facility] BUN 25 5 - 25 mg/dL LAB CHEMISTRY METHOD 04/03/2024 7:28 AM [facility] Creatinine 2.23(H) 0.70 - 1.30 mg/dL LAB CHEMISTRY METHOD 04/03/2024 7:28 AM [facility] eGFR 36(L) >=60 mL/min/1. 73m2 LAB CHEMISTRY METHOD 04/03/2024 7:28 AM [facility] Comment:Calculation based on the??Chronic Kidney Disease Epidemiology Collaboration (CKD-EPI) equation refit??without adjustment for race. BUN/Creatinine Ratio 11.2 LAB CHEMISTRY METHOD 04/03/2024 7:28 AM [facility] Calcium 9.4 8.5 - 10.5 mg/dL LAB CHEMISTRY METHOD 04/03/2024 7:28 AM EST [facility] AST (SGOT) 12 10 - 42 unit/L LAB CHEMISTRY METHOD 04/03/2024 7:28 AM [facility] ALT (SGPT) 13 10 - 60 unit/L LAB CHEMISTRY METHOD 04/03/2024 7:28 AM [facility] Alkaline Phosphatase 120 42 - 121 unit/L LAB CHEMISTRY METHOD 04/03/2024 7:28 AM [facility] Total Protein 6.0 6.0 - 8.0 g/dL LAB CHEMISTRY METHOD 04/03/2024 7:28 AM [facility] Albumin 3.0(L) 3.2 - 5.0 g/dL LAB CHEMISTRY METHOD 04/03/2024 7:28 AM [facility] Total Bilirubin 0.2 0.0 - 1.4 mg/dL LAB CHEMISTRY METHOD 04/03/2024 7:28 AM [facility] Blood Venous blood specimen / Unknown 04/03/2024 6:00 AM EST 04/03/2024 6:45 AM EST Franki Gaona MD LAB BLOOD ORDERABLES [facility] [address] [place] [address], documented in this encounter Visit Diagnoses Diagnosis Chronic kidney disease, stage 4 (severe) (CMS/HCC) Type 2 diabetes mellitus without complications (CMS/HCC) documented in this encounter
--- OUTSIDE RECORDS SUMMARY | 2024-05-30 14:27 | XMS_ITS | Encounter Summary ---
Author Organization [employer] Address [address] [place] [address] Care Team Providers Care Forestry Biology Specialist Name Role Phone Unavailable Primary Care Provider Unavailabl e Encounter Details Date Type Department Care Team (Late st Contact Info) Description 04/16/2024 Lab Requisition [facility] - Main Lab [address] [facility] [place] [address] Franki Gaona MD [address] [place] [address] [address] [place], [place] Hypo-osmolality and hyponatremia; Type 2 diabetes mellitus with other specified complication (CMS/HCC); Chronic kidney disease, stage 3a (CMS/HCC) Social History Tobacco Use Types Packs/Day Years Used Date Smoking Tobacco: Never Assessed Sex and Gender Information Value Date Recorded Sex Assigned at Not on file Gender Identity Not on file Sexual Orientation Not on file documented as of this encounter Plan of Treatment Not on file documented as of this encounter Procedures Procedure Name Priority Date/Time Associated Diagnosis Comments TRAN URINE CULTURE TUBE Routine 04/16/2024 6:20 AM EST Hypo-osmolality and hyponatremia Type 2 diabetes mellitus with other specified complication (CMS/HCC) Chronic kidney disease, stage 3a (CMS/HCC) TIGER TOP URINE TUBE Routine 04/16/2024 6:20 AM EST Hypo-osmolality and hyponatremia Type 2 diabetes mellitus with other specified complication (CMS/HCC) Chronic kidney disease, stage 3a (CMS/HCC) LAVENDER - EDTA Routine 04/16/2024 6:20 AM EST Hypo-osmolality and hyponatremia Type 2 diabetes mellitus with other specified complication (CMS/HCC) Chronic kidney disease, stage 3a (CMS/HCC) IRON AND TIBC Routine 04/16/2024 6:20 AM EST Hypo-osmolality and hyponatremia Type 2 diabetes mellitus with other specified complication (CMS/HCC) Chronic kidney disease, stage 3a (CMS/HCC) PARATHYROID HORMONE INTACT Routine 04/16/2024 6:20 AM EST Hypo-osmolality and hyponatremia Type 2 diabetes mellitus with other specified complication (CMS/HCC) Chronic kidney disease, stage 3a (CMS/HCC) FERRITIN Routine 04/16/2024 6:20 AM EST Hypo-osmolality and hyponatremia Type 2 diabetes mellitus with other specified complication (CMS/HCC) Chronic kidney disease, stage 3a (CMS/HCC) RENAL FUNCTION PANEL Routine 04/16/2024 6:20 AM EST Hypo-osmolality and hyponatremia Type 2 diabetes mellitus with other specified complication (CMS/HCC) Chronic kidney disease, stage 3a (CMS/HCC) COMPREHENSIVE METABOLIC PANEL Routine 04/16/2024 6:20 AM EST Hypo-osmolality and hyponatremia Type 2 diabetes mellitus with other specified complication (CMS/HCC) Chronic kidney disease, stage 3a (CMS/HCC) documented in this encounter Results * [place] top urine tube (04/16/2024 6:20 AM EST) Extra Tube Hold for add-ons. 04/16/2024 9:01 AM EST [facility] Comment:Auto resulted. Urine Urine specimen obtained by clean catch procedure / Unknown 04/16/2024 6:20 AM EST 04/16/2024 7:39 AM EST Franki Gaona MD LAB URINE ORDERABLES [facility] [address] [place] [address], * Tran urine culture tube (04/16/2024 6:20 AM EST) Extra Tube Hold for add-ons. 04/16/2024 9:01 AM EST [facility] Comment:Auto resulted. Urine Urine specimen obtained by clean catch procedure / Unknown 04/16/2024 6:20 AM EST 04/16/2024 7:39 AM EST Franki Gaona MD LAB URINE ORDERABLES Performing Organization Address [facility]/ZIP Co de Phone Number [facility] [address] [place] [address], [place] [phone] * Lavender tube (04/16/2024 6:20 AM EST) Pathologist [facility] Extra Tube Hold for add-ons. 04/16/2024 9:01 AM EST [facility] Comment:Auto resulted. Blood Venous blood specimen / Unknown 04/16/2024 6:20 AM EST 04/16/2024 7:34 AM EST Franki Gaona MD LAB BLOOD ORDERABLES Performing Organization Address [facility]/ZIP Co de Phone Number [facility] [address] [place] [address], [place] [phone] * (ABNORMAL) Iron and TIBC (04/16/2024 6:20 AM EST) [facility] Iron 41(L) 50 - 160 mcg/dL LAB CHEMISTRY METHOD 04/16/2024 7:56 AM EST [facility] TIBC 353 250 - 450 mcg/dL LAB CHEMISTRY METHOD 04/16/2024 7:56 AM EST [facility] Iron Saturation 12(L) 20 - 50 % LAB CHEMISTRY METHOD 04/16/2024 7:56 AM EST [facility] Blood Venous blood specimen / Unknown 04/16/2024 6:20 AM EST 04/16/2024 7:34 AM EST Franki Gaona MD LAB BLOOD ORDERABLES Performing Organization Address City/[facility]/ZIP Co de Phone Number [facility] [address] [place] [address], [place] [phone] * Ferritin (04/16/2024 6:20 AM EST) Pathologist [facility] Ferritin 40 26 - 388 ng/mL LAB CHEMISTRY METHOD 04/16/2024 7:56 AM EST [facility] Blood Venous blood specimen / Unknown 04/16/2024 6:20 AM EST 04/16/2024 7:34 AM EST Franki Gaona MD LAB BLOOD ORDERABLES Performing Organization Address City/[facility]/ZIP Co de Phone Number [facility] [address] [place] [address], [place] [phone] * Parathyroid hormone intact (04/16/2024 6:20 AM EST) [facility] PTH 85.6 18.5 - 88.0 pcg/mL LAB CHEMISTRY METHOD 04/16/2024 8:53 AM EST [facility] Blood Venous blood specimen / Unknown 04/16/2024 6:20 AM EST 04/16/2024 7:34 AM EST Franki Gaona MD LAB BLOOD ORDERABLES Performing Organization Address [facility] Co de Phone Number [facility] [address] [place] [address], [place] [phone] * (ABNORMAL) Renal function panel (04/16/2024 6:20 AM EST) [facility] Sodium 144 133 - 145 mmol/L LAB CHEMISTRY METHOD 04/16/2024 7:56 AM EST [facility] Potassium 4.7 3.5 - 5.5 mmol/L LAB CHEMISTRY METHOD 04/16/2024 7:[address] [facility] Chloride 115(H) 96 - 110 mmol/L LAB CHEMISTRY METHOD 04/16/2024 7:[address] [facility] CO2 21 21 - 32 mmol/L LAB CHEMISTRY METHOD 04/16/2024 7:56 AM EST [facility] Anion Gap 8 3 - 11 LAB CHEMISTRY METHOD 04/16/2024 7:[address] [facility] Glucose 94 70 - 100 mg/dL LAB CHEMISTRY METHOD 04/16/2024 7:[address] [facility] BUN 37(H) 5 - 25 mg/dL LAB CHEMISTRY METHOD 04/16/2024 7:[address] [facility] Creatinine 2.29(H) 0.70 - 1.30 mg/dL LAB CHEMISTRY METHOD 04/16/2024 7:[address] [facility] eGFR 35(L) >=60 mL/min/1. 73m2 LAB CHEMISTRY METHOD 04/16/2024 7:[address] [facility] Comment: Calculation based on the??Chronic Kidney Disease Epidemiology Collaboration (CKD-EPI) equation refit??without adjustment for race. Calculation based on the??Chronic Kidney Disease Epidemiology Collaboration (CKD-EPI) equation refit??without adjustment for race. BUN/Creatinine Ratio 16.2 LAB CHEMISTRY METHOD 04/16/2024 7:[address] [facility] Albumin 3.1(L) 3.2 - 5.0 g/dL LAB CHEMISTRY METHOD 04/16/2024 7:[address] [facility] Calcium 9.2 8.5 - 10.5 mg/dL LAB CHEMISTRY METHOD 04/16/2024 7:[address] [facility] Phosphorus 3.8 2.5 - 4.5 mg/dL LAB CHEMISTRY METHOD 04/16/2024 7:[address] [facility] Blood Venous blood specimen / Unknown 04/16/2024 6:20 AM EST 04/16/2024 7:34 AM EST Franki Gaona MD LAB BLOOD ORDERABLES [facility] [address] [place] [address], * (ABNORMAL) Comprehensive metabolic panel (04/16/2024 6:20 AM EST) [facility] Sodium 144 133 - 145 mmol/L LAB CHEMISTRY METHOD 04/16/2024 7:[address] [facility] Potassium 4.7 3.5 - 5.5 mmol/L LAB CHEMISTRY METHOD 04/16/2024 7:[address] [facility] Chloride 115(H) 96 - 110 mmol/L LAB CHEMISTRY METHOD 04/16/2024 7:[address] [facility] CO2 21 21 - 32 mmol/L LAB CHEMISTRY METHOD 04/16/2024 7:[address] [facility] Anion Gap 8 3 - 11 LAB CHEMISTRY METHOD 04/16/2024 7:[address] [facility] Glucose 94 70 - 100 mg/dL LAB CHEMISTRY METHOD 04/16/2024 7:[address] [facility] BUN 37(H) 5 - 25 mg/dL LAB CHEMISTRY METHOD 04/16/2024 7:[address] [facility] Creatinine 2.29(H) 0.70 - 1.30 mg/dL LAB CHEMISTRY METHOD 04/16/2024 7:[address] [facility] eGFR 35(L) >=60 mL/min/1. 73m2 LAB CHEMISTRY METHOD 04/16/2024 7:[address] [facility] Comment:Calculation based on the??Chronic Kidney Disease Epidemiology Collaboration (CKD-EPI) equation refit??without adjustment for race. BUN/Creatinine Ratio 16.2 LAB CHEMISTRY METHOD 04/16/2024 7:[address] [facility] Calcium 9.2 8.5 - 10.5 mg/dL LAB CHEMISTRY METHOD 04/16/2024 7:[address] [facility] AST (SGOT) 9(L) 10 - 42 unit/L LAB CHEMISTRY METHOD 04/16/2024 7:[address] [facility] ALT (SGPT) 21 10 - 60 unit/L LAB CHEMISTRY METHOD 04/16/2024 7:56 AM EST [facility] Alkaline Phosphatase 119 42 - 121 unit/L LAB CHEMISTRY METHOD 04/16/2024 7:56 AM EST [facility] Total Protein 6.7 6.0 - 8.0 g/dL LAB CHEMISTRY METHOD 04/16/2024 7:56 AM EST [facility] Albumin 3.1(L) 3.2 - 5.0 g/dL LAB CHEMISTRY METHOD 04/16/2024 7:[address] [facility] Total Bilirubin 0.2 0.0 - 1.4 mg/dL LAB CHEMISTRY METHOD 04/16/2024 7:[address] [facility] Blood Venous blood specimen / Unknown 04/16/2024 6:20 AM EST 04/16/2024 7:34 AM EST Franki Gaona MD LAB BLOOD ORDERABLES [facility] [address] [place] [address], documented in this encounter Visit Diagnoses Diagnosis Hypo-osmolality and hyponatremia Type 2 diabetes mellitus with other specified complication (CMS/HCC) Chronic kidney disease, stage 3a (CMS/HCC) documented in this encounter
--- OUTSIDE RECORDS SUMMARY | 2024-05-30 14:27 | XMS_ITS | Encounter Summary ---
Author Organization [facility] Address [address] [place] [address] Care Team Providers Care Operations Architect Name Role Phone Unavailable Primary Care Provider Unavailabl e Encounter Details Date Type Department Care Team (Late st Contact Info) Description 04/02/2024 Lab Requisition [facility] - Main Lab [address] [facility] [place] [address] Franki Gaona MD [address] [place] [address] [address] [place], [place] Other longterm (current) drug therapy Social History Tobacco Use [...] Diagnosis Comments CBC WITH AUTO DIFFERENTIAL Routine 04/02/2024 5:05 AM EST Other longterm (current) drug therapy CBC AND DIFFERENTIAL Routine 04/02/2024 5:05 AM EST Other longterm (current) drug therapy documented in this encounter Results * (ABNORMAL) CBC auto differential (04/02/2024 5:05 AM EST) WBC 5.7 4.8 - 10.8 K/mcL LAB HEMETOLOGY METHOD 04/02/2024 5:49 AM EST [facility] RBC 3.10(L) 4.50 - 5.50 M/[facility] LAB HEMETOLOGY METHOD 04/02/2024 5:49 AM EST [facility] Hemoglobin 8.3(L) 13.5 - 17.5 g/dL LAB HEMETOLOGY METHOD 04/02/2024 5:49 AM [facility] Hematocrit 25.1(L) 42.0 - 54.0 % LAB HEMETOLOGY METHOD 04/02/2024 5:49 AM [facility] MCV 79.9 79.0 - 98.0 FL LAB HEMETOLOGY METHOD 04/02/2024 5:49 AM [facility] MCH 26.4(L) 27.0 - 32.0 pcg LAB HEMETOLOGY METHOD 04/02/2024 5:49 AM [facility] MCHC 33.1 32.0 - 37.0 g/dL LAB HEMETOLOGY METHOD 04/02/2024 5:49 AM [facility] RDW 14.1 11.0 - 15.0 % LAB HEMETOLOGY METHOD 04/02/2024 5:49 AM [facility] Platelets 282 130 - 400 K/mcL LAB HEMETOLOGY METHOD 04/02/2024 5:49 AM [facility] MPV 10.5 7.0 - 11.0 FL LAB HEMETOLOGY METHOD 04/02/2024 5:49 AM [facility] NRBC 0.0 <1.0 % LAB HEMETOLOGY METHOD 04/02/2024 5:49 AM [facility] NRBC Absolute 0.00 <0.10 K/mcL LAB HEMETOLOGY METHOD 04/02/2024 5:49 AM [facility] Neutrophils Relative 59.1 % LAB HEMETOLOGY METHOD 04/02/2024 5:49 AM [facility] Lymphocytes Relative 26.3 % LAB HEMETOLOGY METHOD 04/02/2024 5:49 AM [facility] Monocytes Relative 6.5 % LAB HEMETOLOGY METHOD 04/02/2024 5:49 AM [facility] Eosinophils Relative 7.2 % LAB HEMETOLOGY METHOD 04/02/2024 5:49 AM [facility] Basophils Relative 0.5 % LAB HEMETOLOGY METHOD 04/02/2024 5:49 AM [facility] Immature Granulocytes Relative 0.4 % LAB HEMETOLOGY METHOD 04/02/2024 5:49 AM [facility] Neutrophils Absolute 3.38 1.50 - 7.00 K/mcL LAB HEMETOLOGY METHOD 04/02/2024 5:49 AM [facility] Lymphocytes Absolute 1.50 1.00 - 5.00 K/mcL LAB HEMETOLOGY METHOD 04/02/2024 5:49 AM [facility] Monocytes Absolute 0.37 0.20 - 1.00 K/mcL LAB HEMETOLOGY METHOD 04/02/2024 5:49 AM [facility] Eosinophils Absolute 0.41 0.00 - 0.50 K/mcL LAB HEMETOLOGY METHOD 04/02/2024 5:49 AM EST [facility] Basophils Absolute 0.03 0.00 - 0.20 K/mcL LAB HEMETOLOGY METHOD 04/02/2024 5:49 AM [facility] Immature Granulocytes Absolute 0.02 0.00 - 0.03 K/mcL LAB HEMETOLOGY METHOD 04/02/2024 5:49 AM [facility] Blood Venous blood specimen / Unknown 04/02/2024 5:05 AM EST 04/02/2024 5:36 AM EST Franki Gaona MD LAB BLOOD ORDERABLES [facility] [address] [place] [address], documented in this encounter Visit Diagnoses Diagnosis Other regional intermodal truck driver (current) drug therapy documented in this encounter
--- OUTSIDE RECORDS SUMMARY | 2024-05-30 14:27 | XMS_ITS | Encounter Summary ---
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 Role Phone Unavailable Primary Care Provider Unavailabl e Encounter Details Date Type Department Care Team (Late st Contact Info) Description 05/08/2024 Lab Requisition [facility] - Main Lab [address] [facility] [place] [address] Franki Gaona MD [address] [place] [address] Dr [address] [place], [place] Vitamin D deficiency, unspecified; Other symptoms and signs concerning food and fluid intake Social History Tobacco Use Types Packs/Day Years Used Date Smoking Tobacco: Never Assessed Sex and Gender Information Value Date Recorded Sex Assigned at Not on file Gender Identity Not on file Sexual Orientation Not on file documented as of this encounter Plan of Treatment Not on file documented as of this encounter Procedures Procedure Name Priority Date/Time Associated Diagnosis Comments CREATININE, SERUM Routine 05/08/2024 6:1 5 AM EST Other symptoms and signs concerning food and fluid intake VITAMIN D 25 HYDROXY Routine 05/08/2024 6:15 AM EST Vitamin D deficiency, unspecified BUN Routine 05/08/2024 6:15 AM EST Other symptoms and signs concerning food and fluid intake ELECTROLYTE PANEL Routine 05/08/2024 6:1 5 AM EST Other symptoms and signs concerning food and fluid intake documented in this encounter Results * (ABNORMAL) Creatinine (05/08/2024 6:15 AM EST) Creatinine 2.58(H) 0.70 - 1.30 mg/dL LAB CHEMISTRY METHOD 05/09/2024 7:34 AM EST [facility] eGFR 30(L) >=60 mL/min/1. 73m2 LAB CHEMISTRY METHOD 05/09/2024 7:34 AM EST [facility] Comment:Calculation based on the??Chronic Kidney Disease Epidemiology Collaboration (CKD-EPI) equation refit??without adjustment for race. Blood Venous blood specimen / Unknown 05/08/2024 6:15 AM EST 05/08/2024 6:49 AM EST Franki Gaona MD LAB BLOOD ORDERABLES Performing Organization Address [facility]/ZIP Co de Phone Number [facility] [address] [place] [address], * (ABNORMAL) BUN (05/08/2024 6:15 AM EST) BUN 38(H) 5 - 25 mg/dL LAB CHEMISTRY METHOD 05/09/2024 7:[address] [facility] Blood Venous blood specimen / Unknown 05/08/2024 6:15 AM EST 05/08/2024 6:49 AM EST Franki Gaona MD LAB BLOOD ORDERABLES Performing Organization Address [facility] [[email or web address]] Co de Phone Number [facility] [address] [place] [address], [place] [phone] * (ABNORMAL) Electrolyte panel (05/08/2024 6:15 AM EST) Sodium 139 133 - 145 mmol/L LAB CHEMISTRY METHOD 05/09/2024 7:[address] [facility] Potassium 4.1 3.5 - 5.5 mmol/L LAB CHEMISTRY METHOD 05/09/2024 7:[address] [facility] Chloride 112(H) 96 - 110 mmol/L LAB CHEMISTRY METHOD 05/09/2024 7:[address] [facility] CO2 19(L) 21 - 32 mmol/L LAB CHEMISTRY METHOD 05/09/2024 7:[address] [facility] Anion Gap 8 3 - 11 LAB CHEMISTRY METHOD 05/09/2024 7:34 AM EST [facility] Blood Venous blood specimen / Unknown 05/08/2024 6:15 AM EST 05/08/2024 6:49 AM EST Franki Gaona MD LAB BLOOD ORDERABLES Performing Organization Address City/[facility]/ZIP Co de Phone Number [facility] [address] [place] [address], * (ABNORMAL) Vitamin D 25 hydroxy (05/08/2024 6:15 AM EST) Vit D, 25-Hydroxy 19.5(L) 30.0 - 80.0 ng/mL LAB CHEMISTRY METHOD 05/08/2024 7:22 AM EST [facility] Blood Venous blood specimen / Unknown 05/08/2024 6:15 AM EST 05/08/2024 6:49 AM EST Franki Gaona MD LAB BLOOD ORDERABLES [facility] [address] [place] [address], [place] [phone] documented in this encounter Visit Diagnoses Diagnosis Vitamin D deficiency, unspecified Other symptoms and signs concerning food and fluid intake documented in this encounter
--- OUTSIDE RECORDS SUMMARY | 2024-05-30 14:27 | XMS_ITS | Clinical Summary ---
Author Organization [address] Address [address] [place] [address] Phone Care Team Providers Care Enterprise Integration Developer Name Role Phone Unavailable Primary Care Provider Unavailabl e Encounters Date Type Department Care Team Description 05/28/2024 Lab Requisition [facility] [address] [place] [phone] Franki Gaona MD Other assistant terminal manager (current) drug therapy 05/21/2024 Lab Requisition [facility] [address] [place] [phone] Franki Gaona MD Iron deficiency anemia, unspecified 05/16/2024 Lab Requisition [facility] [address] [place] [phone] Franki Gaona MD Chronic kidney disease, stage 3 unspecified (CMS/HCC); Iron deficiency anemia, unspecified 05/08/2024 Lab Requisition [facility] [address] [place] [phone] Franki Gaona MD Vitamin D deficiency, unspecified; Other symptoms and signs concerning food and fluid intake 04/30/2024 Lab Requisition [facility] [address] [place] [phone] Franki Gaona MD Chronic kidney disease, stage 3a (CMS/HCC); Type 2 diabetes mellitus with other specified complication (CMS/HCC); Hypo-osmolality and hyponatremia 04/30/2024 Lab Requisition [facility] [address] [place] [phone] 04/23/2024 Lab Requisition [facility] [address] [place] [phone] Franki Gaona MD Other residential (current) drug therapy; Chronic kidney disease, stage 3a (CMS/HCC); Hypo-osmolality and hyponatremia; Type 2 diabetes mellitus with other specified complication ([facility]/HCC) 04/17/2024 Lab Requisition [facility] Lab [address] [place] [phone] Franki Gaona MD Dilated cardiomyopathy ([facility]); Essential (primary) hypertension; Chronic kidney disease, stage 3a (CMS/HCC) 04/16/2024 Lab Requisition [facility] Main Lab [address] [place] [phone] Franki Gaona MD Hypo-osmolality and hyponatremia; Type 2 diabetes mellitus with other specified complication ([facility]/HCC); Chronic kidney disease, stage 3a (CMS/HCC) 04/03/2024 Lab Requisition [facility] Lab [address] [place] [phone] Franki Gaona MD Chronic kidney disease, stage 4 (severe) ([facility]); Type 2 diabetes mellitus without complications ([facility]) 04/02/2024 Lab Requisition [facility] Lab [address] [place] [phone] Franki Gaona MD Other residential (current) drug therapy 03/06/2024 Lab Requisition [facility] Lab [address] [place] [phone] Franki Gaona MD Schizoaffective disorder, unspecified ([facility]) from Last 3 Months Social History Tobacco Use Types Packs/Day Years Used Date Smoking Tobacco: Never Assessed Sex and Gender Information Value Date Recorded Sex Assigned at Not on file Gender Identity Not on file Sexual Orientation Not on file Plan of Treatment Health Maintenance Due Date Last Done Comments Pneumococcal Vaccine: Pediatrics (0 to 5 Years) and At-Risk Patients (6 to 64 Years) (1 of 2 - PCV) 1982 Diabetes: Annual Foot Exam 1986 Diabetes: Annual Retina Eye Exam 1986 DTaP,Tdap,and Td Vaccines (1 - Tdap) 08/30/1995 Hepatitis B Vaccines (1 of 3 - 19+ 3-dose series) 08/30/1995 Cholesterol Screening (Lipid Panel) 04/04/2022 Colorectal Cancer Screening: Colonoscopy 04/04/2022 Depression Screening 04/04/2022 HIV Screening 04/04/2022 Hepatitis C Screening 04/04/2022 Medicare Annual Wellness Visit 04/04/2022 Social Influencers of Health Screening 04/04/2022 COVID-19 Vaccine ( season) 2024 Influenza Vaccine (#1) 2024 Diabetes: Blood Sugar Control Test (HGBA1C) 10/29/2024 04/30/2024 Diabetes: Annual Urine Albumin-Creatinine Ratio (uACR) 04/17/2025 04/17/2024 Diabetes: Annual GFR (Glomerular Filtration Rate) 05/08/2025 05/08/2024, 04/30/2024, 04/23/2024, Additional history exists Hypertension/CHF/CAD Annual BMP Blood Test 05/08/2025 05/08/2024, 04/30/2024, 04/23/2024, Additional history exists HIB Vaccines Aged Out No longer eligi ble based on patient's age to complete this topic HPV Vaccines Aged Out No longer eligi ble based on patient's age to complete this topic Hepatitis A Vaccines Aged Out No long er eligible based on patient's age to complete this topic IPV Vaccines Aged Out No longer eligi ble based on patient's age to complete this topic MMR Vaccines Aged Out No longer eligi ble based on patient's age to complete this topic Meningococcal ACWY Vaccine Aged Out N o longer eligible based on patient's age to complete this topic RSV Immunization Patients Under 20 months Aged Out No longer eligible based on patient's age to complete this topic Varicella Vaccines Aged Out No longer eligible based on patient's age to complete this topic Procedures Procedure Name Priority Date/Time Associated Diagnosis Comments CBC WITH AUTO DIFFERENTIAL Routine 05/28/2024 7:08 AM EST Other residential (current) drug therapy HEMOGLOBIN Routine 05/28/2024 7:08 AM EST Other assistant terminal manager (current) drug therapy CBC AND DIFFERENTIAL Routine 05/28/2024 7:08 AM EST Other residential (current) drug therapy HEMOGLOBIN Routine 05/21/2024 6:34 AM EST Iron deficiency anemia, unspecified IRON AND TIBC Routine 05/16/2024 6:15 AM EST Chronic kidney disease, stage 3 unspecified (CMS/HCC) Iron deficiency anemia, unspecified FERRITIN Routine 05/16/2024 6:15 AM EST Chronic kidney disease, stage 3 unspecified (CMS/HCC) Iron deficiency anemia, unspecified COMPLETE BLOOD COUNT Routine 05/16/2024 6:15 AM EST Chronic kidney disease, stage 3 unspecified (CMS/HCC) Iron deficiency anemia, unspecified CREATININE, SERUM Routine 05/08/2024 6:1 5 AM EST Other symptoms and signs concerning food and fluid intake BUN Routine 05/08/2024 6:15 AM EST Other symptoms and signs concerning food and fluid intake ELECTROLYTE PANEL Routine 05/08/2024 6:1 5 AM EST Other symptoms and signs concerning food and fluid intake VITAMIN D 25 HYDROXY Routine 05/08/2024 6:15 AM EST Vitamin D deficiency, unspecified LAVENDER - EDTA Routine 04/30/2024 5:55 AM EST Chronic kidney disease, stage 3a (CMS/HCC) Type 2 diabetes mellitus with other specified complication (CMS/HCC) Hypo-osmolality and hyponatremia CBC WITH AUTO DIFFERENTIAL Routine 04/30/2024 5:55 [...] specified complication (CMS/HCC) Hypo-osmolality and hyponatremia CBC WITH AUTO DIFFERENTIAL Routine 04/23/2024 5:05 AM EST Other residential (current) drug therapy Chronic kidney disease, stage 3a (CMS/HCC) Hypo-osmolality and hyponatremia Type 2 diabetes mellitus with other specified complication (CMS/HCC) CREATININE, SERUM Routine 04/23/2024 5:0 5 AM EST Other residential (current) drug therapy Chronic kidney disease, stage 3a (CMS/HCC) Hypo-osmolality and hyponatremia Type 2 diabetes mellitus with other specified complication (CMS/HCC) BUN Routine 04/23/2024 5:05 AM EST Other residential (current) drug therapy Chronic kidney disease, stage 3a (CMS/HCC) Hypo-osmolality and hyponatremia Type 2 diabetes mellitus with other specified complication (CMS/HCC) ELECTROLYTE PANEL Routine 04/23/2024 5:0 5 AM EST Other residential (current) drug therapy Chronic kidney disease, stage 3a (CMS/HCC) Hypo-osmolality and hyponatremia Type 2 diabetes mellitus with other specified complication (CMS/HCC) CBC AND DIFFERENTIAL Routine 04/23/2024 5:05 AM EST Other residential (current) drug therapy Chronic kidney disease, stage 3a (CMS/HCC) Hypo-osmolality and hyponatremia Type 2 diabetes mellitus with other specified complication (CMS/HCC) PROTEIN AND CREATININE WITH RATIO, URINE Routine 04/17/2024 7:22 AM EST Dilated cardiomyopathy (CMS/HCC) Essential (primary) hypertension Chronic kidney disease, stage 3a (CMS/HCC) MICROALBUMIN CREATININE URINE RATIO Routine 04/17/2024 7:22 AM EST Dilated cardiomyopathy (CMS/HCC) Essential (primary) hypertension Chronic kidney disease, stage 3a (CMS/HCC) CBC WITH AUTO DIFFERENTIAL Routine 04/17/2024 7:22 AM EST Dilated cardiomyopathy (CMS/HCC) Essential (primary) hypertension Chronic kidney disease, stage 3a (CMS/HCC) CBC AND DIFFERENTIAL Routine 04/17/2024 7:22 AM EST Dilated cardiomyopathy (CMS/HCC) Essential (primary) hypertension Chronic kidney disease, stage 3a (CMS/HCC) TIGER TOP URINE TUBE Routine 04/16/2024 6:20 AM EST Hypo-osmolality and hyponatremia Type 2 diabetes mellitus with other specified complication (CMS/HCC) Chronic kidney disease, stage 3a (CMS/HCC) TRAN URINE CULTURE TUBE Routine 04/16/2024 6:20 [...] (CMS/HCC) Chronic kidney disease, stage 3a (CMS/HCC) PREALBUMIN Routine 04/03/2024 6:00 AM EST Chronic kidney disease, stage 4 (severe) (CMS/HCC) Type 2 diabetes mellitus without complications (CMS/HCC) COMPREHENSIVE METABOLIC PANEL Routine 04/03/2024 6:00 AM EST Chronic kidney disease, stage 4 (severe) (CMS/HCC) Type 2 diabetes mellitus without complications (CMS/HCC) CBC WITH AUTO DIFFERENTIAL Routine 04/02/2024 5:05 AM EST Other residential (current) drug therapy CBC AND DIFFERENTIAL Routine 04/02/2024 5:05 AM EST Other assistant terminal manager (current) drug therapy CBC WITH AUTO DIFFERENTIAL Routine 03/06/2024 4:50 AM EST Schizoaffective disorder, unspecified (CMS/HCC) COMPREHENSIVE METABOLIC PANEL Routine 03/06/2024 4:50 AM EST Schizoaffective disorder, unspecified (CMS/HCC) CBC AND DIFFERENTIAL Routine 03/06/2024 4:50 AM EST Schizoaffective disorder, unspecified (CMS/HCC) from Last 3 Months Results * (ABNORMAL) CBC auto differential (05/28/2024 7:08 AM EST) Only the most recent of6 resultswithin the time period is included. WBC 8.8 4.8 - 10.8 K/mcL LAB HEMETOLOGY METHOD 05/28/2024 9:[address] [facility] RBC 3.60(L) 4.50 - 5.50 M/mcL LAB HEMETOLOGY METHOD 05/28/2024 9:[address] [facility] Hemoglobin 9.2(L) 13.5 - 17.5 g/dL LAB HEMETOLOGY METHOD 05/28/2024 9:[address] [facility] Hematocrit 30.4(L) 42.0 - 54.0 % LAB HEMETOLOGY METHOD 05/28/2024 9:[address] [facility] MCV 85.4 79.0 - 98.0 FL LAB HEMETOLOGY METHOD 05/28/2024 9:[address] [facility] MCH 25.8(L) 27.0 - 32.0 pcg LAB HEMETOLOGY METHOD 05/28/2024 9:[address] [facility] MCHC 30.3(L) 32.0 - 37.0 g/dL LAB HEMETOLOGY METHOD 05/28/2024 9:[address] [facility] RDW 16.2(H) 11.0 - 15.0 % LAB HEMETOLOGY METHOD 05/28/2024 9:[address] [facility] Platelets 348 130 - 400 K/mcL LAB HEMETOLOGY METHOD 05/28/2024 9:[address] [facility] MPV 11.0 7.0 - 11.0 FL LAB HEMETOLOGY METHOD 05/28/2024 9:[address] [facility] NRBC 0.0 <1.0 % LAB HEMETOLOGY METHOD 05/28/2024 9:[address] [facility] NRBC Absolute 0.00 <0.10 K/mcL LAB HEMETOLOGY METHOD 05/28/2024 9:[address] [facility] Neutrophils Relative 70.5 % LAB HEMETOLOGY METHOD 05/28/2024 9:[address] [facility] Lymphocytes Relative 19.2 % LAB HEMETOLOGY METHOD 05/28/2024 9:[address] [facility] Monocytes Relative 6.6 % LAB HEMETOLOGY METHOD 05/28/2024 9:[address] [facility] Eosinophils Relative 2.7 % LAB HEMETOLOGY METHOD 05/28/2024 9:[address] [facility] Basophils Relative 0.3 % LAB HEMETOLOGY METHOD 05/28/2024 9:[address] [facility] Immature Granulocytes Relative 0.7 % LAB HEMETOLOGY METHOD 05/28/2024 9:[address] [facility] Neutrophils Absolute 6.21 1.50 - 7.00 K/mcL LAB HEMETOLOGY METHOD 05/28/2024 9:[address] [facility] Lymphocytes Absolute 1.69 1.00 - 5.00 K/mcL LAB HEMETOLOGY METHOD 05/28/2024 9:[address] [facility] Monocytes Absolute 0.58 0.20 - 1.00 K/mcL LAB HEMETOLOGY METHOD 05/28/2024 9:[address] [facility] Eosinophils Absolute 0.24 0.00 - 0.50 K/mcL LAB HEMETOLOGY METHOD 05/28/2024 9:[address] [facility] Basophils Absolute 0.03 0.00 - 0.20 K/mcL LAB HEMETOLOGY METHOD 05/28/2024 9:[address] [facility] Immature Granulocytes Absolute 0.06(H) 0.00 - 0.03 K/mcL LAB HEMETOLOGY METHOD 05/28/2024 9:09 AM EST [facility] Blood Venous blood specimen / Unknown 05/28/2024 7:08 AM EST 05/28/2024 8:41 AM EST Franki Gaona MD LAB BLOOD ORDERABLES Performing Organization Address City/[facility]/ZIP Co de Phone Number [facility] [address] [place] [address], * (ABNORMAL) Hemoglobin (05/28/2024 7:08 AM EST) Only the most recent of2 resultswithin the time period is included. Hemoglobin 9.2(L) 13.5 - 17.5 g/dL LAB HEMETOLOGY METHOD 05/28/2024 9:09 AM EST [facility] Blood Venous blood specimen / Unknown 05/28/2024 7:08 AM EST 05/28/2024 8:41 AM EST Franki Gaona MD LAB BLOOD ORDERABLES Performing Organization Address City/[facility]/ZIP Co de Phone Number [facility] [address] [place] [address], [place] [phone] * (ABNORMAL) Iron and TIBC (05/16/2024 6:15 AM EST) Only the most recent of2 resultswithin the time period is included. Iron 23(L) 50 - 160 mcg/dL LAB CHEMISTRY METHOD 05/16/2024 8:01 AM EST [facility] TIBC 298 250 - 450 mcg/dL LAB CHEMISTRY METHOD 05/16/2024 8:[address] [facility] Iron Saturation 8(L) 20 - 50 % LAB CHEMISTRY METHOD 05/16/2024 8:01 AM EST [facility] Blood Venous blood specimen / Unknown 05/16/2024 6:15 AM EST 05/16/2024 7:28 AM EST Franki Gaona MD LAB BLOOD ORDERABLES [facility] [address] [place] [address], [place] [phone] * (ABNORMAL) Complete blood count (05/16/2024 6:15 AM EST) WBC 11.4(H) 4.8 - 10.8 K/mcL LAB HEMETOLOGY METHOD 05/16/2024 7:[address] [facility] RBC 3.50(L) 4.50 - 5.50 M/mcL LAB HEMETOLOGY METHOD 05/16/2024 7:[address] [facility] Hemoglobin 8.9(L) 13.5 - 17.5 g/dL LAB HEMETOLOGY METHOD 05/16/2024 7:[address] [facility] Hematocrit 28.0(L) 42.0 - 54.0 % LAB HEMETOLOGY METHOD 05/16/2024 7:[address] [facility] MCV 80.5 79.0 - 98.0 FL LAB HEMETOLOGY METHOD 05/16/2024 7:[address] [facility] MCH 25.6(L) 27.0 - 32.0 pcg LAB HEMETOLOGY METHOD 05/16/2024 7:[address] [facility] MCHC 31.8(L) 32.0 - 37.0 g/dL LAB HEMETOLOGY METHOD 05/16/2024 7:[address] [facility] RDW 14.0 11.0 - 15.0 % LAB HEMETOLOGY METHOD 05/16/2024 7:[address] [facility] Platelets 352 130 - 400 K/mcL LAB HEMETOLOGY METHOD 05/16/2024 7:[address] [facility] MPV 11.2(H) 7.0 - 11.0 FL LAB HEMETOLOGY METHOD 05/16/2024 7:59 AM EST [facility] NRBC 0.0 <1.0 % LAB HEMETOLOGY METHOD 05/16/2024 7:59 AM EST [facility] NRBC Absolute 0.00 <0.10 K/mcL LAB HEMETOLOGY METHOD 05/16/2024 7:59 AM EST [facility] Blood Venous blood specimen / Unknown 05/16/2024 6:15 AM EST 05/16/2024 7:28 AM EST Franki Gaona MD LAB BLOOD ORDERABLES Performing Organization Address City/[facility]/ZIP Co de Phone Number [facility] [address] [place] [address], [place] [phone] * Ferritin (05/16/2024 6:15 AM EST) Only the most recent of2 resultswithin the time period is included. Ferritin 142 26 - 388 ng/mL LAB CHEMISTRY METHOD 05/16/2024 8:[address] [facility] Blood Venous blood specimen / Unknown 05/16/2024 6:15 AM EST 05/16/2024 7:28 AM EST Franki Gaona MD LAB BLOOD ORDERABLES Performing Organization Address City/[facility]/ZIP Co de Phone Number [facility] [address] [place] [address], [place] [phone] * (ABNORMAL) Creatinine (05/08/2024 6:15 AM EST) Only the most recent of3 resultswithin the time period is included. Creatinine 2.58(H) 0.70 - 1.30 mg/dL LAB CHEMISTRY METHOD 05/09/2024 7:34 AM EST [facility] eGFR 30(L) >=60 mL/min/1. 73m2 LAB CHEMISTRY METHOD 05/09/2024 7:34 AM EST [facility] Comment:Calculation based on the??Chronic Kidney Disease Epidemiology Collaboration (CKD-EPI) equation refit??without adjustment for race. Blood Venous blood specimen / Unknown 05/08/2024 6:15 AM EST 05/08/2024 6:49 AM EST Franki Gaona MD LAB BLOOD ORDERABLES Performing Organization Address [facility] de Phone Number [facility] [address] [place] [address], [place] [phone] * (ABNORMAL) Vitamin D 25 hydroxy (05/08/2024 6:15 AM EST) Vit D, 25-Hydroxy 19.5(L) 30.0 - 80.0 ng/mL LAB CHEMISTRY METHOD 05/08/2024 7:22 AM EST [facility] Blood Venous blood specimen / Unknown 05/08/2024 6:15 AM EST 05/08/2024 6:49 AM EST Franki Gaona MD LAB BLOOD ORDERABLES Performing Organization Address [facility] de Phone Number [facility] [address] [place] [address], [place] [phone] * (ABNORMAL) BUN (05/08/2024 6:15 AM EST) Only the most recent of3 resultswithin the time period is included. BUN 38(H) 5 - 25 mg/dL LAB CHEMISTRY METHOD 05/09/2024 7:34 AM EST [facility] Blood Venous blood specimen / Unknown 05/08/2024 6:15 AM EST 05/08/2024 6:49 AM EST Franki Gaona MD LAB BLOOD ORDERABLES Performing Organization Address [facility] Co de Phone Number [facility] [address] [place] [address], [place] [phone] * (ABNORMAL) Electrolyte panel (05/08/2024 6:15 AM EST) Only the most recent of3 resultswithin the time period is included. Sodium 139 133 - 145 mmol/L LAB CHEMISTRY METHOD 05/09/2024 7:34 AM EST [facility] Potassium 4.1 3.5 - 5.5 mmol/L LAB CHEMISTRY METHOD 05/09/2024 7:34 AM EST [facility] Chloride 112(H) 96 - 110 mmol/L LAB CHEMISTRY METHOD 05/09/2024 7:34 AM EST [facility] CO2 19(L) 21 - 32 mmol/L LAB CHEMISTRY METHOD 05/09/2024 7:[address] [facility] Anion Gap 8 3 - 11 LAB CHEMISTRY METHOD 05/09/2024 7:34 AM EST [facility] Blood Venous blood specimen / Unknown 05/08/2024 6:15 AM EST 05/08/2024 6:49 AM EST Franki Gaona MD LAB BLOOD ORDERABLES Performing Organization Address City/[facility]/ZIP Co de Phone Number [facility] [address] [place] [address], [place] [phone] * Lavender tube (04/30/2024 5:55 AM EST) Only the most recent of2 resultswithin the time period is included. Pathologist [facility] Extra Tube Hold for add-ons. 04/30/2024 8:01 AM EST [facility] Comment:Auto resulted. Blood Venous blood specimen / Unknown 04/30/2024 5:55 AM EST 04/30/2024 6:32 AM EST Franki Gaona MD LAB BLOOD ORDERABLES Performing Organization Address City/[facility]/ZIP Co de Phone Number [facility] [address] [place] [address], [place] [phone] * Hemoglobin A1c (04/30/2024 5:55 AM EST) Hemoglobin A1C 6.2 <6.5 % LAB CHEMISTRY METHOD 04/30/2024 9:11 AM EST [facility] Mean Bld Glu Estim. 131 mg/dL LAB CHEMISTRY METHOD 04/30/2024 9:11 AM EST [facility] Blood Venous blood specimen / Unknown 04/30/2024 5:55 AM EST 04/30/2024 6:32 AM EST Franki Gaona MD LAB BLOOD ORDERABLES Performing Organization Address City/[facility]/ZIP Co de Phone Number [facility] [address] [place] [address], [place] [phone] * (ABNORMAL) Protein and creatinine with ratio, urine (04/17/2024 7:22 AM EST) Pathologist [facility] Protein, Urine 146 mg/dL LAB CHEMISTRY METHOD 04/17/2024 8:50 AM EST [facility] Prot/Creat, Ur 8.59(H) <=0.20 mg/mg creat LAB CHEMISTRY METHOD 04/17/2024 8:50 AM EST [facility] Creatinine, Urine 17.0 mg/dL LAB CHEMISTRY METHOD 04/17/2024 8:50 AM EST [facility] Urine Urine specimen obtained by clean catch procedure / Unknown 04/17/2024 7:22 AM EST 04/17/2024 8:20 AM EST Franki Gaona MD LAB URINE ORDERABLES [facility] [address] [place] [address], [place] [phone] * (ABNORMAL) Microalbumin creatinine urine ratio (04/17/2024 7:22 AM EST) Creatinine, Urine 17.0 mg/dL LAB CHEMISTRY METHOD 04/17/2024 9:22 AM EST [facility] Microalb, Ur 983.0(H) 0.0 - 29.0 mg/L LAB CHEMISTRY METHOD 04/17/2024 9:22 AM EST [facility] Microalb/Crea t Ratio 5,782(H) <30 mg/g creat LAB CHEMISTRY METHOD 04/17/2024 9:22 AM EST [facility] Urine Urine specimen obtained by clean catch procedure / Unknown 04/17/2024 7:22 AM EST 04/17/2024 8:20 AM EST Franki Gaona MD LAB URINE ORDERABLES Performing Organization Address City/[facility]/ZIP Co de Phone Number [facility] [address] [place] [address], [place] [phone] * Tran urine culture tube (04/16/2024 6:20 AM EST) Extra Tube Hold for add-ons. 04/16/2024 9:01 AM EST [facility] Comment:Auto resulted. Urine Urine specimen obtained by clean catch procedure / Unknown 04/16/2024 6:20 AM EST 04/16/2024 7:39 AM EST Franki Gaona MD LAB URINE ORDERABLES [facility] [address] [place] [address], [place] [phone] * [place] top urine tube (04/16/2024 6:20 AM EST) Extra Tube Hold for add-ons. 04/16/2024 9:01 AM EST [facility] Comment:Auto resulted. Urine Urine specimen obtained by clean catch procedure / Unknown 04/16/2024 6:20 AM EST 04/16/2024 7:39 AM EST Franki Gaona MD LAB URINE ORDERABLES Performing Organization Address City/[facility]/ZIP Co de Phone Number [facility] [address] [place] [address], [place] [phone] * Parathyroid hormone intact (04/16/2024 6:20 AM EST) Pathologist [facility] PTH 85.6 18.5 - 88.0 pcg/mL LAB CHEMISTRY METHOD 04/16/2024 8:[address] [facility] Blood Venous blood specimen / Unknown 04/16/2024 6:20 AM EST 04/16/2024 7:34 AM EST Franki Gaona MD LAB BLOOD ORDERABLES Performing Organization Address [facility]/ZIP Co de Phone Number [facility] [address] [place] [address], * (ABNORMAL) Renal function panel (04/16/2024 6:20 AM EST) Pathologist [facility] Sodium 144 133 - 145 mmol/L LAB [...] EST Franki Gaona MD LAB BLOOD ORDERABLES [facility] [address] [place] [address], * (ABNORMAL) Comprehensive metabolic panel (04/16/2024 6:20 AM EST) Only the most recent of3 resultswithin the time period is included. Sodium 144 133 - 145 mmol/L LAB [...] 04/16/2024 7:[address] [facility] Alkaline Phosphatase 119 42 - 121 unit/L LAB CHEMISTRY METHOD 04/16/2024 7:[address] [facility] Total Protein 6.7 6.0 - 8.0 g/dL LAB CHEMISTRY METHOD 04/16/2024 7:56 AM EST [facility] Albumin 3.1(L) 3.2 - 5.0 g/dL LAB CHEMISTRY METHOD 04/16/2024 7:56 AM EST [facility] Total Bilirubin 0.2 0.0 - 1.4 mg/dL LAB CHEMISTRY METHOD 04/16/2024 7:56 AM EST [facility] Blood Venous blood specimen / Unknown 04/16/2024 6:20 AM EST 04/16/2024 7:34 AM EST Franki Gaona MD LAB BLOOD ORDERABLES Performing Organization Address City/[facility]/ZIP Co de Phone Number [facility] [address] [place] [address], [place] [phone] * (ABNORMAL) Prealbumin (04/03/2024 6:00 AM EST) Prealbumin 17(L) 18 - 45 mg/dL LAB CHEMISTRY METHOD 04/03/2024 7:28 AM EST [facility] Blood Venous blood specimen / Unknown 04/03/2024 6:00 AM EST 04/03/2024 6:45 AM EST Franki Gaona MD LAB BLOOD ORDERABLES Performing Organization Address City/[facility]/ZIP Co de Phone Number [facility] [address] [place] [address], [place] [phone] from Last 3 Months KACY LÓPEZ [id number]
--- OUTSIDE RECORDS SUMMARY | 2024-05-30 14:27 | XMS_ITS | Encounter Summary ---
Author Organization [facility] Address [address] [place] [address] Care Team Providers Care Exhibit Carpenter Name Role Phone Unavailable Primary Care Provider Unavailabl e Encounter Details Date Type Department Care Team (Late st Contact Info) Description 05/16/2024 Lab Requisition [facility] - Main Lab [address] [facility] [place] [address] Franki Gaona MD [address] [place] [address] [address] [place], [place] Chronic kidney disease, stage 3 unspecified (CMS/HCC); Iron deficiency anemia, unspecified Social History Tobacco Use Types Packs/Day Years Used Date Smoking Tobacco: Never Assessed Sex and Gender Information Value Date Recorded Sex Assigned at Not on file Gender Identity Not on file Sexual Orientation Not on file documented as of this encounter Plan of Treatment Not on file documented as of this encounter Procedures Procedure Name Priority Date/Time Associated Diagnosis Comments IRON AND TIBC Routine 05/16/2024 6:15 AM EST Chronic kidney disease, stage 3 unspecified (CMS/HCC) Iron deficiency anemia, unspecified COMPLETE BLOOD COUNT Routine 05/16/2024 6:15 AM EST Chronic kidney disease, stage 3 unspecified (CMS/HCC) Iron deficiency anemia, unspecified FERRITIN Routine 05/16/2024 6:15 AM EST Chronic kidney disease, stage 3 unspecified (CMS/HCC) Iron deficiency anemia, unspecified documented in this encounter Results * (ABNORMAL) Iron and TIBC (05/16/2024 6:15 AM EST) Iron 23(L) 50 - 160 mcg/dL LAB CHEMISTRY METHOD 05/16/2024 8:01 AM EST [facility] TIBC 298 250 - 450 mcg/dL LAB CHEMISTRY METHOD 05/16/2024 8:01 AM [facility] Iron Saturation 8(L) 20 - 50 % LAB CHEMISTRY METHOD 05/16/2024 8:01 AM [facility] Blood Venous blood specimen / Unknown 05/16/2024 6:15 AM EST 05/16/2024 7:28 AM EST Franki Gaona MD LAB BLOOD ORDERABLES [facility] [address] [place] [address], [place] [phone] * Ferritin (05/16/2024 6:15 AM EST) Pathologist [facility] Ferritin 142 26 - 388 ng/mL LAB CHEMISTRY METHOD 05/16/2024 8:01 AM [facility] Blood Venous blood specimen / Unknown 05/16/2024 6:15 AM EST 05/16/2024 7:28 AM EST Franki Gaona MD LAB BLOOD ORDERABLES Performing Organization Address City/[facility]/ZIP Co de Phone Number [facility] [address] [place] [address], [place] [phone] * (ABNORMAL) Complete blood count (05/16/2024 6:15 AM EST) Pathologist [facility] WBC 11.4(H) 4.8 - 10.8 K/mcL LAB HEMETOLOGY METHOD 05/16/2024 7:59 AM [facility] RBC 3.50(L) 4.50 - 5.50 M/mcL LAB HEMETOLOGY METHOD 05/16/2024 7:59 AM [facility] Hemoglobin 8.9(L) 13.5 - 17.5 g/dL LAB HEMETOLOGY METHOD 05/16/2024 7:59 AM [facility] Hematocrit 28.0(L) 42.0 - 54.0 % LAB HEMETOLOGY METHOD 05/16/2024 7:59 AM [facility] MCV 80.5 79.0 - 98.0 FL LAB HEMETOLOGY METHOD 05/16/2024 7:59 AM [facility] LAB MCH 25.6(L) 27.0 - 32.0 pcg LAB HEMETOLOGY METHOD 05/16/2024 7:59 AM [facility] MCHC 31.8(L) 32.0 - 37.0 g/dL LAB HEMETOLOGY METHOD 05/16/2024 7:59 AM [facility] LAB RDW 14.0 11.0 - 15.0 % LAB HEMETOLOGY METHOD 05/16/2024 7:59 AM [facility] Platelets 352 130 - 400 K/mcL LAB HEMETOLOGY METHOD 05/16/2024 7:59 AM [facility] MPV 11.2(H) 7.0 - 11.0 FL LAB HEMETOLOGY METHOD 05/16/2024 7:59 AM [facility] NRBC 0.0 <1.0 % LAB HEMETOLOGY METHOD 05/16/2024 7:59 AM [facility] NRBC Absolute 0.00 <0.10 K/mcL LAB HEMETOLOGY METHOD 05/16/2024 7:59 AM [facility] Blood Venous blood specimen / Unknown 05/16/2024 6:15 AM EST 05/16/2024 7:28 AM EST Franki Gaona MD LAB BLOOD ORDERABLES [facility] [address] [place] [address], documented in this encounter Visit Diagnoses Diagnosis Chronic kidney disease, stage 3 unspecified (CMS/HCC) Iron deficiency anemia, unspecified documented in this encounter
--- OUTSIDE RECORDS SUMMARY | 2024-05-30 14:27 | XMS_ITS | Encounter Summary ---
Author Organization [facility] Address [address] [address] Phone Care Team Providers Care Jumpbasting Canvas Baster Name Role Phone Franki Gaona DO Primary Care Provider [phone] Encounter Details Date Type Department Care Team (Late Contact Info) Description 05/06/2024 Office Communication [facility] [address] [address] Keenan Fleming MD [address] [address] Social History Tobacco Use Types Packs/Day Years [...] on file documented as of this encounter Miscellaneous Notes * Telephone Encounter - Keenan Fleming MD - 05/06/2024 8:13 PM EST Added this prior to signing With captopril reduction from 58% to 52% on the left. Will discuss referral to vascular surgery in followup documented in this encounter Plan of Treatment Upcoming Encounters Date Type Department Care Team (Late st Contact Info) Description 06/11/2024 10:15 AM EST Office Visit [facility] [address] [address] Charlene Hand ARNP [address] [address] documented as of this encounter Visit Diagnoses Not on filedocumented in this encounter Care Teams Jumpbasting Canvas Baster Relationship Specialty Start Date End Date Franki Gaona DO [address] [place] [address] [address] [place] [address] PCP - General Internal Medicine 01/17/23 documented as of this encounter
--- OUTSIDE RECORDS SUMMARY | 2024-05-30 14:27 | XMS_ITS | Encounter Summary ---
Author Organization [facility] Address [address] [place] [address] Care Team Providers Care Quality Control Technician Name Role Phone Unavailable Primary Care Provider Unavailabl e Encounter Details Date Type Department Care Team (Latest Contact Info) Description 03/06/2024 Lab Requisition [facility] - Main Lab [address] [place] [phone] Franki Gaona MD [address] [place] [address] Dr [address] [place] Schizoaffective disorder, unspecified (CMS/HCC) Social History Tobacco Use Types Packs/Day [...] Diagnosis Comments CBC WITH AUTO DIFFERENTIAL Routine 03/06/2024 4:50 AM EST Schizoaffective disorder, unspecified (CMS/HCC) CBC AND DIFFERENTIAL Routine 03/06/2024 4:50 AM EST Schizoaffective disorder, unspecified (CMS/HCC) COMPREHENSIVE METABOLIC PANEL Routine 03/06/2024 4:50 AM EST Schizoaffective disorder, unspecified (CMS/HCC) documented in this encounter Results * (ABNORMAL) CBC auto differential (03/06/2024 4:50 AM EST) WBC 6.7 4.8 - 10.8 K/[facility] LAB HEMETOLOGY METHOD 03/06/2024 6:59 AM EST [facility] RBC 3.00(L) 4.50 - 5.50 M/[facility] LAB HEMETOLOGY METHOD 03/06/2024 6:59 AM [facility] Hemoglobin 8.0(L) 13.5 - 17.5 g/dL LAB HEMETOLOGY METHOD 03/06/2024 6:59 AM [facility] Hematocrit 23.4(L) 42.0 - 54.0 % LAB HEMETOLOGY METHOD 03/06/2024 6:59 AM [facility] MCV 78.0(L) 79.0 - 98.0 FL LAB HEMETOLOGY METHOD 03/06/2024 6:59 AM [facility] MCH 26.7(L) 27.0 - 32.0 pcg LAB HEMETOLOGY METHOD 03/06/2024 6:59 AM [facility] MCHC 34.2 32.0 - 37.0 g/dL LAB HEMETOLOGY METHOD 03/06/2024 6:59 AM [facility] RDW 13.6 11.0 - 15.0 % LAB HEMETOLOGY METHOD 03/06/2024 6:59 AM [facility] Platelets 254 130 - 400 K/mcL LAB HEMETOLOGY METHOD 03/06/2024 6:59 AM [facility] MPV 11.3(H) 7.0 - 11.0 FL LAB HEMETOLOGY METHOD 03/06/2024 6:59 AM [facility] NRBC 0.0 <1.0 % LAB HEMETOLOGY METHOD 03/06/2024 6:59 AM [facility] NRBC Absolute 0.00 <0.10 K/mcL LAB HEMETOLOGY METHOD 03/06/2024 6:59 AM [facility] Neutrophils Relative 63.6 % LAB HEMETOLOGY METHOD 03/06/2024 6:59 AM [facility] Lymphocytes Relative 23.9 % LAB HEMETOLOGY METHOD 03/06/2024 6:59 AM [facility] Monocytes Relative 9.6 % LAB HEMETOLOGY METHOD 03/06/2024 6:59 AM [facility] Eosinophils Relative 2.4 % LAB HEMETOLOGY METHOD 03/06/2024 6:59 AM [facility] Basophils Relative 0.2 % LAB HEMETOLOGY METHOD 03/06/2024 6:59 AM [facility] Immature Granulocytes Relative 0.3 % LAB HEMETOLOGY METHOD 03/06/2024 6:59 AM [facility] Neutrophils Absolute 4.23 1.50 - 7.00 K/mcL LAB HEMETOLOGY METHOD 03/06/2024 6:59 AM [facility] Lymphocytes Absolute 1.59 1.00 - 5.00 K/mcL LAB HEMETOLOGY METHOD 03/06/2024 6:59 AM [facility] Monocytes Absolute 0.64 0.20 - 1.00 K/mcL LAB HEMETOLOGY METHOD 03/06/2024 6:59 AM EST [facility] Eosinophils Absolute 0.16 0.00 - 0.50 K/mcL LAB HEMETOLOGY METHOD 03/06/2024 6:59 AM [facility] Basophils Absolute 0.01 0.00 - 0.20 K/mcL LAB HEMETOLOGY METHOD 03/06/2024 6:59 AM [facility] Immature Granulocytes Absolute 0.02 0.00 - 0.03 K/mcL LAB HEMETOLOGY METHOD 03/06/2024 6:59 AM [facility] Blood Venous blood specimen / Unknown 03/06/2024 4:50 AM EST 03/06/2024 6:38 AM EST Franki Gaona MD LAB BLOOD ORDERABLES [facility] [address] [place] [address], * (ABNORMAL) Comprehensive metabolic panel (03/06/2024 4:50 AM [facility]) Sodium 131(L) 133 - 145 mmol/L LAB CHEMISTRY METHOD 03/06/2024 7:08 AM [facility] Potassium 4.0 3.5 - 5.5 mmol/L LAB CHEMISTRY METHOD 03/06/2024 7:08 AM [facility] Chloride 98 96 - 110 mmol/L LAB CHEMISTRY METHOD 03/06/2024 7:08 AM [facility] CO2 24 21 - 32 mmol/L LAB CHEMISTRY METHOD 03/06/2024 7:08 AM [facility] Anion Gap 9 3 - 11 LAB CHEMISTRY METHOD 03/06/2024 7:08 AM [facility] Glucose 84 70 - 100 mg/dL LAB CHEMISTRY METHOD 03/06/2024 7:08 AM [facility] BUN 28(H) 5 - 25 mg/dL LAB CHEMISTRY METHOD 03/06/2024 7:08 AM [facility] Creatinine 2.21(H) 0.70 - 1.30 mg/dL LAB CHEMISTRY METHOD 03/06/2024 7:08 AM [facility] eGFR 36(L) >=60 mL/min/1. 73m2 LAB CHEMISTRY METHOD 03/06/2024 7:08 AM [facility] Comment:Calculation based on the??Chronic Kidney Disease Epidemiology Collaboration (CKD-EPI) equation refit??without adjustment for race. BUN/Creatinine Ratio 12.7 LAB CHEMISTRY METHOD 03/06/2024 7:08 AM [facility] Calcium 9.6 8.5 - 10.5 mg/dL LAB CHEMISTRY METHOD 03/06/2024 7:08 AM [facility] AST (SGOT) 13 10 - 42 unit/L LAB CHEMISTRY METHOD 03/06/2024 7:08 AM [facility] ALT (SGPT) 15 10 - 60 unit/L LAB CHEMISTRY METHOD 03/06/2024 7:08 AM EST [facility] Alkaline Phosphatase 124(H) 42 - 121 unit/L LAB CHEMISTRY METHOD 03/06/2024 7:08 AM [facility] Total Protein 6.3 6.0 - 8.0 g/dL LAB CHEMISTRY METHOD 03/06/2024 7:08 AM [facility] Albumin 3.0(L) 3.2 - 5.0 g/dL LAB CHEMISTRY METHOD 03/06/2024 7:08 AM [facility] Total Bilirubin 0.2 0.0 - 1.4 mg/dL LAB CHEMISTRY METHOD 03/06/2024 7:08 AM [facility] Blood Venous blood specimen / Unknown 03/06/2024 4:50 AM EST 03/06/2024 6:38 AM EST Franki Gaona MD LAB BLOOD ORDERABLES [facility] [address] [place] [address], documented in this encounter Visit Diagnoses Diagnosis Schizoaffective disorder, unspecified (CMS/HCC) documented in this encounter
--- OUTSIDE RECORDS SUMMARY | 2024-05-30 14:27 | XMS_ITS | Encounter Summary ---
Author Organization [facility] Address [address] [place] [address] Care Team Providers Care Therapeutic Strategy Lead Name Role Phone Unavailable Primary Care Provider Unavailabl e Encounter Details Date Type Department Care Team (Late st Contact Info) Description 04/17/2024 Lab Requisition [facility] - Main Lab 299 [facility] [place] [address] Franki Gaona MD [address] [place] [address] Dr [address] [place], [place] Dilated cardiomyopathy (CMS/HCC); Essential (primary) hypertension; Chronic kidney disease, stage 3a (CMS/HCC) Social [...] Diagnosis Comments CBC WITH AUTO DIFFERENTIAL Routine 04/17/2024 7:22 AM EST Dilated cardiomyopathy (CMS/HCC) Essential (primary) hypertension Chronic kidney disease, stage 3a (CMS/HCC) PROTEIN AND CREATININE WITH RATIO, URINE [...] hypertension Chronic kidney disease, stage 3a (CMS/HCC) documented in this encounter Results * (ABNORMAL) Protein and creatinine with ratio, urine (04/17/2024 7:22 AM EST) Protein, Urine 146 mg/dL LAB CHEMISTRY METHOD 04/17/2024 8:50 AM EST [facility] Prot/Creat, Ur 8.59(H) <=0.20 mg/mg creat LAB CHEMISTRY METHOD 04/17/2024 8:50 AM EST [facility] Creatinine, Urine 17.0 mg/dL LAB CHEMISTRY METHOD 04/17/2024 8:50 AM EST [facility] Urine Urine specimen obtained by clean catch procedure / Unknown 04/17/2024 7:22 AM EST 04/17/2024 8:20 AM EST Franki Gaona MD LAB URINE ORDERABLES Performing Organization Address [facility]/ZIP Co de Phone Number [facility] [address] [place] [address], [place] [phone] * (ABNORMAL) Microalbumin creatinine urine ratio (04/17/2024 7:22 AM EST) Creatinine, Urine 17.0 mg/dL LAB CHEMISTRY METHOD 04/17/2024 9:22 AM EST [facility] Microalb, Ur 983.0(H) 0.0 - 29.0 mg/L LAB CHEMISTRY METHOD 04/17/2024 9:22 AM EST [facility] Microalb/Crea t Ratio 5,782(H) <30 mg/g creat LAB CHEMISTRY METHOD 04/17/2024 9:22 AM EST [facility] Urine Urine specimen obtained by clean catch procedure / Unknown 04/17/2024 7:22 AM EST 04/17/2024 8:20 AM EST Franki Gaona MD LAB URINE ORDERABLES Performing Organization Address City/[facility]/ZIP Co de Phone Number [facility] [address] [place] [address], [place] [phone] * (ABNORMAL) CBC auto differential (04/17/2024 7:22 AM EST) [facility] WBC 5.8 4.8 - 10.8 K/mcL LAB HEMETOLOGY METHOD 04/17/2024 8:27 AM [facility] RBC 3.30(L) 4.50 - 5.50 M/mcL LAB HEMETOLOGY METHOD 04/17/2024 8:27 AM [facility] Hemoglobin 8.7(L) 13.5 - 17.5 g/dL LAB HEMETOLOGY METHOD 04/17/2024 8:27 AM [facility] Hematocrit 27.3(L) 42.0 - 54.0 % LAB HEMETOLOGY METHOD 04/17/2024 8:27 AM [facility] MCV 82.5 79.0 - 98.0 FL LAB HEMETOLOGY METHOD 04/17/2024 8:27 AM [facility] MCH 26.3(L) 27.0 - 32.0 pcg LAB HEMETOLOGY METHOD 04/17/2024 8:27 AM [facility] MCHC 31.9(L) 32.0 - 37.0 g/dL LAB HEMETOLOGY METHOD 04/17/2024 8:27 AM [facility] RDW 15.0 11.0 - 15.0 % LAB HEMETOLOGY METHOD 04/17/2024 8:27 AM [facility] Platelets 288 130 - 400 K/mcL LAB HEMETOLOGY METHOD 04/17/2024 8:27 AM [facility] MPV 11.4(H) 7.0 - 11.0 FL LAB HEMETOLOGY METHOD 04/17/2024 8:27 AM [facility] NRBC 0.0 <1.0 % LAB HEMETOLOGY METHOD 04/17/2024 8:27 AM [facility] NRBC Absolute 0.00 <0.10 K/mcL LAB HEMETOLOGY METHOD 04/17/2024 8:27 AM [facility] Neutrophils Relative 68.0 % LAB HEMETOLOGY METHOD 04/17/2024 8:27 AM [facility] Lymphocytes Relative 19.2 % LAB HEMETOLOGY METHOD 04/17/2024 8:27 AM [facility] Monocytes Relative 7.1 % LAB HEMETOLOGY METHOD 04/17/2024 8:27 AM [facility] Eosinophils Relative 5.2 % LAB HEMETOLOGY METHOD 04/17/2024 8:27 AM [facility] Basophils Relative 0.3 % LAB HEMETOLOGY METHOD 04/17/2024 8:27 AM [facility] Immature Granulocytes Relative 0.2 % LAB HEMETOLOGY METHOD 04/17/2024 8:27 AM [facility] Neutrophils Absolute 3.93 1.50 - 7.00 K/mcL LAB HEMETOLOGY METHOD 04/17/2024 8:27 AM [facility] Lymphocytes Absolute 1.11 1.00 - 5.00 K/mcL LAB HEMETOLOGY METHOD 04/17/2024 8:27 AM [facility] Monocytes Absolute 0.41 0.20 - 1.00 K/mcL LAB HEMETOLOGY METHOD 04/17/2024 8:27 AM [facility] Eosinophils Absolute 0.30 0.00 - 0.50 K/mcL LAB HEMETOLOGY METHOD 04/17/2024 8:27 AM [facility] Basophils Absolute 0.02 0.00 - 0.20 K/mcL LAB HEMETOLOGY METHOD 04/17/2024 8:27 AM [facility] Immature Granulocytes Absolute 0.01 0.00 - 0.03 K/mcL LAB HEMETOLOGY METHOD 04/17/2024 8:27 AM EST [facility] Blood Venous blood specimen / Unknown 04/17/2024 7:22 AM EST 04/17/2024 8:11 AM EST Franki Gaona MD LAB BLOOD ORDERABLES [facility] [address] [place] [address], documented in this encounter Visit Diagnoses Diagnosis Dilated cardiomyopathy (CMS/HCC) Other primary cardiomyopathies Essential (primary) hypertension Unspecified essential hypertension Chronic kidney disease, stage 3a (CMS/HCC) documented in this encounter
--- OUTSIDE RECORDS SUMMARY | 2024-05-30 14:27 | XMS_ITS | Encounter Summary ---
Author Organization [facility] Address [address] [facility] [address] [place] [address] Phone Care Team Providers Care Window Glazier Helper Name Role Phone Franki Gaona DO Primary Care Provider [phone] Reason for Visit * Reason Onset Date Comments LAB RESULTS 04/17/2024 [facility]URSE AT [facility] WANTED TO LET YOU KNOW ABOUT 04/16/2024 LABS IRON PANEL WAS 41 FERRITIN WAS 40 IRON SATURATION WAS 12 TIBC WAS 353 AND HEMOGLOBIN FROM 04/17/2024 WAS 8.7 Encounter Details Date Type Department Care Team (Late st Contact Info) Description 04/17/2024 Telephone [facility] [address] [facility] [address] [place] [address] [address] Hale [address] [facility] [address] [place] [phone] LAB RESULTS ([facility]URSE AT [facility] WANTED TO LET YOU KNOW ABOUT 04/16/2024 LABS IRON PANEL WAS 41 FERRITIN WAS 40 IRON SATURATION WAS 12 TIBC WAS 353 AND HEMOGLOBIN FROM 04/17/2024 WAS 8.7) Social History Tobacco Use Types Packs/Day Years [...] Encounters Date Type Department Care Team (Late Contact Info) Description 06/11/2024 10:15 AM EST Office Visit [facility] [address] [address] Charlene Hand ARNP [address] [address] documented as of this encounter Visit Diagnoses Not on filedocumented in this encounter Care Teams Window Glazier Helper Relationship Specialty Start Date End Date Franki Gaona DO [address] [place] [address] DR[address] [place], [place] PCP - General Internal Medicine 01/17/23 documented as of this encounter
--- OUTSIDE RECORDS SUMMARY | 2024-05-30 14:27 | XMS_ITS | Encounter Summary ---
Author Organization [facility] Address [address] [place] [address] Care Team Providers Care Plum Packer Name Role Phone Unavailable Primary Care Provider Unavailabl e Encounter Details Date Type Department Care Team (Late st Contact Info) Description 05/21/2024 Lab Requisition [facility] - Main Lab [address] [place] [phone] Franki Gaona MD [address] [place] [address] Dr [address] [place], [place] Iron deficiency anemia, unspecified Social History Tobacco [...] Procedure Name Priority Date/Time Associated Diagnosis Comments HEMOGLOBIN Routine 05/21/2024 6:34 AM EST Iron deficiency anemia, unspecified documented in this encounter Results * (ABNORMAL) Hemoglobin (05/21/2024 6:34 AM EST) Hemoglobin 8.3(L) 13.5 - 17.5 g/dL LAB HEMETOLOGY METHOD 05/21/2024 7:51 AM EST [facility] Blood Venous blood specimen / Unknown 05/21/2024 6:34 AM EST 05/21/2024 7:41 AM EST Franki Gaona MD LAB BLOOD ORDERABLES [facility] [address] [place] [address], documented in this encounter Visit Diagnoses Diagnosis Iron deficiency anemia, unspecified documented in this encounter
== END 2024-05-30 13:25 | disposition home or self-care (01) ==
LOC: HO.HGI 12:06
PROVIDERS: PCP Hospitalist; Visit Provider Nurse Practitioner Family
DX: Z01.818 Encounter for other preprocedural examination (principal); Z12.11 Encounter for screening for malignant neoplasm of colon; Z91.199 Patient's noncompliance with other medical treatment and regimen due to unspecified reason
CPT/HCPCS: 99024

== ENCOUNTER → 2024-05-30 12:06 | Outpatient (BNVA) | payer MEDICARE, MEDICAID, SELFPAY | PROVIDERS: PCP Hospitalist; Visit Provider Nurse Practitioner Family | DX: Z01.818 Encounter for other preprocedural examination (principal); K59.00 Constipation, unspecified; K21.9 Gastro-esophageal reflux disease without esophagitis | CPT/HCPCS: 99212 ==

== ENCOUNTER 2024-08-15 07:13 | Day surgery (SDC) | payer MEDICARE, MEDICAID, SELFPAY ==
--- OUTSIDE RECORDS SUMMARY | 2024-08-06 17:13 | XMS_ITS | Encounter Summary ---
Author Organization [employer] Address [address] [place] [address] Care Team Providers Care Location Man Name Role Phone Franki Gaona MD Primary Care Provider [phone] Encounter Details Date Type Department Care Team (Late st Contact Info) Description 04/30/2024 Lab Requisition [facility] - Main Lab [address] [facility] [place] [address] Franki Gaona MD [address] [place] [address] Dr [address] [place] Chronic kidney disease, stage 3a (CMS/HCC); Type 2 diabetes mellitus with other specified complication (CMS/HCC); Hypo-osmolality and hyponatremia Social History Tobacco Use Types Packs/Day Years Used Date Smoking Tobacco: Never Assessed Sex and Gender Information Value Date Recorded Sex Assigned at Not on file Legal Sex Male 9:45 AM EST Gender Identity Not on file Sexual Orientation [...] Lavender tube (04/30/2024 5:55 AM EST) Pathologist [facility] Extra Tube Hold for add-ons. 04/30/2024 8:01 AM EST [facility] Comment:Auto resulted. Blood Venous blood specimen / Unknown 04/30/2024 5:55 AM EST 04/30/2024 6:32 AM EST us Franki Gaona MD LAB BLOOD ORDERABLES Final Resul t [facility] [address] [place] [address], * (ABNORMAL) CBC auto differential (04/30/2024 5:55 AM EST) Pathologist [facility] WBC 6.7 4.8 - 10.8 K/mcL LAB HEMETOLOGY METHOD 04/30/2024 7:17 AM EST [facility] RBC 3.10(L) 4.50 - 5.50 M/mcL LAB HEMETOLOGY METHOD 04/30/2024 7:17 AM EST [facility] Hemoglobin 8.0(L) 13.5 - 17.5 g/dL LAB HEMETOLOGY METHOD 04/30/2024 7:17 AM [facility] Hematocrit 25.3(L) 42.0 - 54.0 % LAB HEMETOLOGY METHOD 04/30/2024 7:17 AM [facility] MCV 82.4 79.0 - 98.0 FL LAB HEMETOLOGY METHOD 04/30/2024 7:17 AM [facility] MCH 26.1(L) 27.0 - 32.0 pcg LAB HEMETOLOGY METHOD 04/30/2024 7:17 AM [facility] MCHC 31.6(L) 32.0 - 37.0 g/dL LAB HEMETOLOGY METHOD 04/30/2024 7:17 AM [facility] RDW 14.6 11.0 - 15.0 % LAB HEMETOLOGY METHOD 04/30/2024 7:17 AM [facility] Platelets 266 130 - 400 K/mcL LAB HEMETOLOGY METHOD 04/30/2024 7:17 AM [facility] MPV 11.9(H) 7.0 - 11.0 FL LAB HEMETOLOGY METHOD 04/30/2024 7:17 AM [facility] NRBC 0.0 <1.0 % LAB HEMETOLOGY METHOD 04/30/2024 7:17 AM [facility] NRBC Absolute 0.00 <0.10 K/mcL LAB HEMETOLOGY METHOD 04/30/2024 7:17 AM [facility] Neutrophils Relative 60.8 % LAB HEMETOLOGY METHOD 04/30/2024 7:17 AM [facility] Lymphocytes Relative 23.9 % LAB HEMETOLOGY METHOD 04/30/2024 7:17 AM [facility] Monocytes Relative 6.8 % LAB HEMETOLOGY METHOD 04/30/2024 7:17 AM [facility] Eosinophils Relative 7.8 % LAB HEMETOLOGY METHOD 04/30/2024 7:17 AM [facility] Basophils Relative 0.5 % LAB HEMETOLOGY METHOD 04/30/2024 7:17 AM [facility] Immature Granulocytes Relative 0.2 % LAB HEMETOLOGY METHOD 04/30/2024 7:17 AM [facility] Neutrophils Absolute 4.06 1.50 - 7.00 K/mcL LAB HEMETOLOGY METHOD 04/30/2024 7:17 AM [facility] Lymphocytes Absolute 1.59 1.00 - 5.00 K/mcL LAB HEMETOLOGY METHOD 04/30/2024 7:17 AM [facility] Monocytes Absolute 0.45 0.20 - 1.00 K/mcL LAB HEMETOLOGY METHOD 04/30/2024 7:17 AM EST [facility] Eosinophils Absolute 0.52(H) 0.00 - 0.50 K/mcL LAB HEMETOLOGY METHOD 04/30/2024 7:17 AM [facility] Basophils Absolute 0.03 0.00 - 0.20 K/mcL LAB HEMETOLOGY METHOD 04/30/2024 7:17 AM [facility] Immature Granulocytes Absolute 0.01 0.00 - 0.03 K/mcL LAB HEMETOLOGY METHOD 04/30/2024 7:17 AM EST [facility] Blood Venous blood specimen / Unknown 04/30/2024 5:55 AM EST 04/30/2024 6:32 AM EST us Franki Gaona MD LAB BLOOD ORDERABLES Final Resul t [facility] [address] [place] [address], * Hemoglobin A1c (04/30/2024 5:55 AM EST) Hemoglobin A1C 6.2 <6.5 % LAB CHEMISTRY METHOD 04/30/2024 9:11 AM EST [facility] Mean Bld Glu Estim. 131 mg/dL LAB CHEMISTRY METHOD 04/30/2024 9:11 AM EST [facility] Blood Venous blood specimen / Unknown 04/30/2024 5:55 AM EST 04/30/2024 6:32 AM EST us Franki Gaona MD LAB BLOOD ORDERABLES Final Resul t Performing Organization Address City/[facility]/ZIP Co de Phone Number [facility] [address] [place] [address], [place] [phone] * (ABNORMAL) BUN (04/30/2024 5:55 AM EST) BUN 79(H) 5 - 25 mg/dL LAB CHEMISTRY METHOD 04/30/2024 7:17 AM EST [facility] Blood Venous blood specimen / Unknown 04/30/2024 5:55 AM EST 04/30/2024 6:32 AM EST us Franki Gaona MD LAB BLOOD ORDERABLES Final Resul t Performing Organization Address City/[facility]/ZIP Co de Phone Number [facility] [address] [place] [address], [place] [phone] * (ABNORMAL) Creatinine (04/30/2024 5:55 AM EST) Creatinine 2.64(H) 0.70 - 1.30 mg/dL LAB CHEMISTRY METHOD 04/30/2024 7:07 AM [facility] eGFR 29(L) >=60 mL/min/1. 73m2 LAB CHEMISTRY METHOD 04/30/2024 7:07 AM EST [facility] Comment:Calculation based on the??Chronic Kidney Disease Epidemiology Collaboration (CKD-EPI) equation refit??without adjustment for race. Blood Venous blood specimen / Unknown 04/30/2024 5:55 AM EST 04/30/2024 6:32 AM EST us Franki Gaona MD LAB BLOOD ORDERABLES Final Resul t Performing Organization Address [facility] Co de Phone Number [facility] [address] [place] [address], [place] [phone] * (ABNORMAL) Electrolyte panel (04/30/2024 5:55 AM EST) Sodium 141 133 - 145 mmol/L LAB CHEMISTRY METHOD 04/30/2024 7:07 AM [facility] Potassium 4.4 3.5 - 5.5 mmol/L LAB CHEMISTRY METHOD 04/30/2024 7:07 AM [facility] Chloride 113(H) 96 - 110 mmol/L LAB CHEMISTRY METHOD 04/30/2024 7:07 AM [facility] CO2 22 21 - 32 mmol/L LAB CHEMISTRY METHOD 04/30/2024 7:07 AM [facility] Anion Gap 6 3 - 11 LAB CHEMISTRY METHOD 04/30/2024 7:07 AM [facility] Blood Venous blood specimen / Unknown 04/30/2024 5:55 AM EST 04/30/2024 6:32 AM EST us Franki Gaona MD LAB BLOOD ORDERABLES Final Resul t Performing Organization Address [facility]/ZIP Co de Phone Number [facility] [address] [place] [address], [place] [phone] documented in this encounter Visit Diagnoses Diagnosis Chronic kidney disease, stage 3a (CMS/HCC) Type 2 diabetes mellitus with other specified complication Hypo-osmolality and hyponatremia documented in this encounter Care Teams Location Man Relationship Specialty Start Date End Date Franki Gaona MD [address] [place] [address] Dr Jona [facility] KACY Franz PCP - General Internal Medicine 06/04/24 documented as of this encounter
--- OUTSIDE RECORDS SUMMARY | 2024-08-06 17:13 | XMS_ITS | Encounter Summary ---
Author Organization [employer] [facility] Address [address] [place] [address] Care Team Providers Care It Security Architect Name Role Phone Franki Gaona MD Primary Care Provider Encounter Details Date Type Department Care Team (Late st Contact Info) Description 07/02/2024 Lab Requisition [facility] - Main Lab [address] [place] [address] Franki Gaona MD [address] [place] [address] [address] [place], [place] Other adjunct faculty for medical terminology (current) drug therapy Social History Tobacco Use [...] Priority Date/Time Associated Diagnosis Comments HEMOGLOBIN Routine 07/02/2024 7:17 AM EST Other adjunct faculty for medical terminology (current) drug therapy documented in this encounter Results * (ABNORMAL) Hemoglobin (07/02/2024 7:17 AM EST) Hemoglobin 11.9(L) 13.5 - 17.5 g/dL LAB HEMETOLOGY METHOD 07/02/2024 8:19 AM EST [facility] Blood Venous blood specimen / Unknown 07/02/2024 7:17 AM EST 07/02/2024 8:02 AM EST us Franki Gaona MD LAB BLOOD ORDERABLES Final Resul t [facility] [address] [place] [address], documented in this encounter Visit Diagnoses Diagnosis Other fci (current) drug therapy documented in this encounter Care Teams It Security Architect Relationship Specialty Start Date End Date Franki Gaona MD [address] [place] [address] Dr [address] KACY Franz PCP - General Internal Medicine 06/04/24 documented as of this encounter
--- OUTSIDE RECORDS SUMMARY | 2024-08-06 17:13 | XMS_ITS | Encounter Summary ---
Author Organization [employer] [facility] Address [address] [place] [address] Care Team Providers Care Road Traffic Controller Name Role Phone Franki aGona MD Primary Care Provider [phone] Encounter Details Date Type Department Care Team (Late st Contact Info) Description 07/30/2024 Lab Requisition [facility] - Main Lab [address] [facility] [place] [address] Franki Gaona MD [address] [place] [address] [address] [place] Other tank terminal gauger (current) drug therapy; Other complications following infusion, transfusion and therapeutic injection, initial encounter Social History Tobacco Use Types Packs/Day Years [...] Associated Diagnosis Comments IRON AND TIBC Routine 07/30/2024 4:42 AM EDT Other senior care (current) drug therapy Other complications following infusion, transfusion and therapeutic injection, initial encounter COMPLETE BLOOD COUNT Routine 07/30/2024 4:42 AM EDT Other senior care (current) drug therapy Other complications following infusion, transfusion and therapeutic injection, initial encounter documented in this encounter Results * Iron and TIBC (07/30/2024 4:42 AM EDT) Iron 62 50 - 160 mcg/dL LAB CHEMISTRY METHOD 07/30/2024 5:[address] [facility] TIBC 307 250 - 450 mcg/dL LAB CHEMISTRY METHOD 07/30/2024 5:[address] [facility] Iron Saturation 20 20 - 50 % LAB CHEMISTRY METHOD 07/30/2024 5:[address] [facility] Blood Venous blood specimen / Unknown 07/30/2024 4:42 AM EDT 07/30/2024 5:26 AM EDT us Franki Gaona MD LAB BLOOD ORDERABLES Final Resul t [facility] [address] [place] [address], * (ABNORMAL) Complete blood count (07/30/2024 4:42 AM EDT) WBC 5.8 4.8 - 10.8 K/mcL LAB HEMETOLOGY METHOD 07/30/2024 5:[address] [facility] RBC 3.80(L) 4.50 - 5.50 M/mcL LAB HEMETOLOGY METHOD 07/30/2024 5:[address] [facility] Hemoglobin 9.9(L) 13.5 - 17.5 g/dL LAB HEMETOLOGY METHOD 07/30/2024 5:[address] [facility] Hematocrit 31.5(L) 42.0 - 54.0 % LAB HEMETOLOGY METHOD 07/30/2024 5:[address] [facility] MCV 83.1 79.0 - 98.0 FL LAB HEMETOLOGY METHOD 07/30/2024 5:[address] [facility] MCH 26.1(L) 27.0 - 32.0 pcg LAB HEMETOLOGY METHOD 07/30/2024 5:[address] [facility] MCHC 31.4(L) 32.0 - 37.0 g/dL LAB HEMETOLOGY METHOD [facility] RDW 17.0(H) 11.0 - 15.0 % LAB HEMETOLOGY METHOD 07/30/2024 5:[address] [facility] Platelets 201 130 - 400 K/mcL LAB HEMETOLOGY METHOD 07/30/2024 5:[address] [facility] MPV 12.2(H) 7.0 - 11.0 FL LAB HEMETOLOGY METHOD 07/30/2024 5:[address] [facility] NRBC 0.3 <1.0 % LAB HEMETOLOGY METHOD 07/30/2024 5:[address] [facility] NRBC Absolute 0.02 <0.10 K/mcL LAB HEMETOLOGY METHOD 07/30/2024 5:[address] [facility] Blood Venous blood specimen / Unknown 07/30/2024 4:42 AM EDT 07/30/2024 5:26 AM EDT us Franki Gaona MD LAB BLOOD ORDERABLES Final Resul t [facility] [address] [place] [address], documented in this encounter Visit Diagnoses Diagnosis Other senior care (current) drug therapy Other complications following infusion, transfusion and therapeutic injection, initial encounter documented in this encounter Care Teams Road Traffic Controller Relationship Specialty Start Date End Date Franki Gaona MD [address] [place] [address] Dr [address] [place] [address] [place] PCP - General Internal Medicine 06/04/24 documented as of this encounter
--- OUTSIDE RECORDS SUMMARY | 2024-08-06 17:13 | XMS_ITS | Encounter Summary ---
Author Organization [employer] [facility] Address [address] [place] [address] Care Team Providers Care Cartridge Gauger Name Role Phone Franki Ga[place] MD Primary Care Provider [phone] Encounter Details Date Type Department Care Team (Late st Contact Info) Description 07/16/2024 Lab Requisition [facility] - Main Lab [address] [facility] [place] [address] Franki Gaona MD [address] [place] [address] [address] [place] Essential (primary) hypertension; Other penitentiary (current) drug therapy Social History Tobacco Use [...] Priority Date/Time Associated Diagnosis Comments HEMOGLOBIN Routine 07/16/2024 4:45 AM EDT Essential (primary) hypertension Other penitentiary (current) drug therapy COMPREHENSIVE METABOLIC PANEL Routine 07/16/2024 4:45 AM EDT Essential (primary) hypertension Other terminal computer operator (current) drug therapy documented in this encounter Results * (ABNORMAL) Comprehensive metabolic panel (07/16/2024 4:45 AM EDT) Sodium 139 133 - 145 mmol/L LAB CHEMISTRY METHOD 07/16/2024 5:57 AM T [facility] Potassium 4.2 3.5 - 5.5 mmol/L LAB CHEMISTRY METHOD 07/16/2024 5:57 AM [facility] Chloride 109 96 - 110 mmol/L LAB CHEMISTRY METHOD 07/16/2024 5:57 AM [facility] CO2 23 21 - 32 mmol/L LAB CHEMISTRY METHOD 07/16/2024 5:57 AM [facility] Anion Gap 7 3 - 11 LAB CHEMISTRY METHOD 07/16/2024 5:57 AM [facility] Glucose 121(H) 70 - 100 mg/dL LAB CHEMISTRY METHOD 07/16/2024 5:57 AM [facility] BUN 46(H) 5 - 25 mg/dL LAB CHEMISTRY METHOD 07/16/2024 5:57 AM [facility] Creatinine 2.59(H) 0.70 - 1.30 mg/dL LAB CHEMISTRY METHOD 07/16/2024 5:57 AM [facility] eGFR 30(L) >=60 mL/min/1. 73m2 LAB CHEMISTRY METHOD 07/16/2024 5:57 AM [facility] Comment:Calculation based on the??Chronic Kidney Disease Epidemiology Collaboration (CKD-EPI) equation refit??without adjustment for race. BUN/Creatinine Ratio 17.8 LAB CHEMISTRY METHOD 07/16/2024 5:57 AM [facility] Calcium 9.2 8.5 - 10.5 mg/dL LAB CHEMISTRY METHOD 07/16/2024 5:57 AM [facility] AST (SGOT) 11 10 - 42 unit/L LAB CHEMISTRY METHOD 07/16/2024 5:57 AM [facility] ALT (SGPT) 17 10 - 60 unit/L LAB CHEMISTRY METHOD 07/16/2024 5:57 AM [facility] Alkaline Phosphatase 141(H) 42 - 121 unit/L LAB CHEMISTRY METHOD 07/16/2024 5:57 AM [facility] Total Protein 7.0 6.0 - 8.0 g/dL LAB CHEMISTRY METHOD 07/16/2024 5:57 AM [facility] Albumin 3.2 3.2 - 5.0 g/dL LAB CHEMISTRY METHOD 07/16/2024 5:57 AM EDT [facility] Total Bilirubin 0.3 0.0 - 1.4 mg/dL LAB CHEMISTRY METHOD 07/16/2024 5:57 AM EDT [facility] Blood Venous blood specimen / Unknown 07/16/2024 4:45 AM EDT 07/16/2024 5:27 AM EDT us Franki Gaona MD LAB BLOOD ORDERABLES Final Resul t [facility] [address] [place] [address], [place] [phone] * (ABNORMAL) Hemoglobin (07/16/2024 4:45 AM EDT) Hemoglobin 10.3(L) 13.5 - 17.5 g/dL LAB HEMETOLOGY METHOD 07/16/2024 5:45 AM EDT [facility] Blood Venous blood specimen / Unknown 07/16/2024 4:45 AM EDT 07/16/2024 5:27 AM EDT us Franki Gaona MD LAB BLOOD ORDERABLES Final Resul t [facility] [address] [place] [address], [place] [phone] documented in this encounter Visit Diagnoses Diagnosis Essential (primary) hypertension Unspecified essential hypertension Other penitentiary (current) drug therapy documented in this encounter Care Teams Cartridge Gauger Relationship Specialty Start Date End Date Franki Gaona MD [address] [place] [address] Dr Jona Franz [place] PCP - General Internal Medicine 06/04/24 documented as of this encounter
--- OUTSIDE RECORDS SUMMARY | 2024-08-06 17:13 | XMS_ITS | Encounter Summary ---
Author Organization [email or web address] [facility] Address [address] [place] [address] Care Team Providers Care Labor Trainer Name Role Phone Franki Gaona MD Primary Care Provider [phone] Encounter Details Date Type Department Care Team (Late st Contact Info) Description 04/02/2024 Lab Requisition [facility] - Main Lab [address] [facility] [place] [address] Franki Gaona MD [address] [place] [address] [address] [place] Other termite exterminator helper (current) drug therapy Social History Tobacco Use [...] DIFFERENTIAL Routine 04/02/2024 5:05 AM EST Other correction (current) drug therapy CBC AND DIFFERENTIAL Routine 04/02/2024 5:05 AM EST Other correction (current) drug therapy documented in this encounter Results * (ABNORMAL) CBC auto differential (04/02/2024 5:05 AM EST) WBC 5.7 4.8 - 10.8 K/mcL LAB HEMETOLOGY METHOD 04/02/2024 5:[address] [facility] RBC 3.10(L) 4.50 - 5.50 M/mcL LAB HEMETOLOGY METHOD 04/02/2024 5:[address] [facility] Hemoglobin 8.3(L) 13.5 - 17.5 g/dL LAB HEMETOLOGY METHOD 04/02/2024 5:49 AM [facility] Hematocrit 25.1(L) 42.0 - 54.0 % LAB HEMETOLOGY METHOD 04/02/2024 5:49 AM [facility] MCV 79.9 79.0 - 98.0 FL LAB HEMETOLOGY METHOD 04/02/2024 5:49 AM [facility] MCH 26.4(L) 27.0 - 32.0 pcg LAB HEMETOLOGY METHOD 04/02/2024 5:49 AM [facility] MCHC 33.1 32.0 - 37.0 g/dL LAB HEMETOLOGY METHOD 04/02/2024 5:49 AM [facility] RDW 14.1 11.0 - 15.0 % LAB HEMETOLOGY METHOD 04/02/2024 5:49 AM [facility] Platelets 282 130 - 400 K/mcL LAB HEMETOLOGY METHOD 04/02/2024 5:49 AM [facility] MPV 10.5 7.0 - 11.0 FL LAB HEMETOLOGY METHOD 04/02/2024 5:49 AM [facility] NRBC 0.0 <1.0 % LAB HEMETOLOGY METHOD 04/02/2024 5:49 AM [facility] NRBC Absolute 0.00 <0.10 K/mcL LAB HEMETOLOGY METHOD 04/02/2024 5:49 AM [facility] Neutrophils Relative 59.1 % LAB HEMETOLOGY METHOD 04/02/2024 5:49 AM [facility] Lymphocytes Relative 26.3 % LAB HEMETOLOGY METHOD 04/02/2024 5:49 AM [facility] Monocytes Relative 6.5 % LAB HEMETOLOGY METHOD 04/02/2024 5:49 AM [facility] Eosinophils Relative 7.2 % LAB HEMETOLOGY METHOD 04/02/2024 5:[address] [facility] Basophils Relative 0.5 % LAB HEMETOLOGY METHOD 04/02/2024 5:49 AM [facility] Immature Granulocytes Relative 0.4 % LAB HEMETOLOGY METHOD 04/02/2024 5:49 AM [facility] Neutrophils Absolute 3.38 1.50 - 7.00 K/mcL LAB HEMETOLOGY METHOD 04/02/2024 5:49 AM [facility] Lymphocytes Absolute 1.50 1.00 - 5.00 K/mcL LAB HEMETOLOGY METHOD 04/02/2024 5:49 AM [facility] Monocytes Absolute 0.37 0.20 - 1.00 K/mcL LAB HEMETOLOGY METHOD 04/02/2024 5:49 AM [facility] Eosinophils Absolute 0.41 0.00 - 0.50 K/mcL LAB HEMETOLOGY METHOD 04/02/2024 5:49 AM [facility] Basophils Absolute 0.03 0.00 - 0.20 K/mcL LAB HEMETOLOGY METHOD 04/02/2024 5:49 AM [facility] Immature Granulocytes Absolute 0.02 0.00 - 0.03 K/mcL LAB HEMETOLOGY METHOD 04/02/2024 5:49 AM [facility] Blood Venous blood specimen / Unknown 04/02/2024 5:05 AM EST 04/02/2024 5:36 AM EST us Franki [place]ona MD LAB BLOOD ORDERABLES Final Resul t [facility] [address] [place] [address], documented in this encounter Visit Diagnoses Diagnosis Other termite exterminator helper (current) drug therapy documented in this encounter Care Teams Labor Trainer Relationship Specialty Start Date End Date Franki Gaona MD [address] [place] [address] Dr [address] KACY Franz PCP - General Internal Medicine 06/04/24 documented as of this encounter
--- OUTSIDE RECORDS SUMMARY | 2024-08-06 17:13 | XMS_ITS | Encounter Summary ---
Author Organization [employer] Address [address] [place] [address] Care Team Providers Care Draughtsman Name Role Phone Franki Gaona MD Primary Care Provider [phone] Encounter Details Date Type Department Care Team (Late st Contact Info) Description 07/23/2024 Lab Requisition [facility] - Main Lab [address] [facility] [place] [address] Franki aGona MD [address] [place] [address] Dr [address] KACY Franz Other java oracle developer (current) drug therapy; Essential (primary) hypertension; Anemia, unspecified Social History Tobacco Use Types Packs/Day [...] Diagnosis Comments CBC WITH AUTO DIFFERENTIAL Routine 07/23/2024 4:44 AM EDT Other assisted (current) drug therapy Essential (primary) hypertension Anemia, unspecified LAVENDER - EDTA Routine 07/23/2024 4:44 AM EDT Other assisted (current) drug therapy Essential (primary) hypertension Anemia, unspecified IRON AND TIBC Routine 07/23/2024 4:44 AM EDT Other java oracle developer (current) drug therapy Essential (primary) hypertension Anemia, unspecified CBC AND DIFFERENTIAL Routine 07/23/2024 4:44 AM EDT Other java oracle developer (current) drug therapy Essential (primary) hypertension Anemia, unspecified documented in this encounter Results * Lavender tube (07/23/2024 4:44 AM EDT) [facility] Extra Tube Hold for add-ons. 07/23/2024 7:01 PM EDT [facility] Comment:Auto resulted. Blood Venous blood specimen / Unknown 07/23/2024 4:44 AM EDT 07/23/2024 6:18 AM EDT Franki Gaona MD LAB BLOOD ORDERABLES Final Resul t [facility] [address] [place] [address], * (ABNORMAL) CBC auto differential (07/23/2024 4:44 AM EDT) [facility] WBC 6.3 4.8 - 10.8 K/mcL LAB HEMETOLOGY METHOD [facility] RBC 3.90(L) 4.50 - 5.50 M/mcL LAB HEMETOLOGY METHOD 07/23/2024 6:06 AM [facility] Hemoglobin 9.9(L) 13.5 - 17.5 g/dL LAB HEMETOLOGY METHOD 07/23/2024 6:06 AM [facility] Hematocrit 31.0(L) 42.0 - 54.0 % LAB HEMETOLOGY METHOD 07/23/2024 6:[facility] MCV 80.3 79.0 - 98.0 FL LAB HEMETOLOGY METHOD 07/23/2024 6:06 AM [facility] MCH 25.6(L) 27.0 - 32.0 pcg LAB HEMETOLOGY METHOD 07/23/2024 6:06 AM [facility] MCHC 31.9(L) 32.0 - 37.0 g/dL LAB HEMETOLOGY METHOD 07/23/2024 6:06 [facility] RDW 15.6(H) 11.0 - 15.0 % LAB HEMETOLOGY METHOD 07/23/2024 6:06 AM [facility] Platelets 186 130 - 400 K/mcL LAB HEMETOLOGY METHOD 07/23/2024 6:06 AM [facility] MPV 12.5(H) 7.0 - 11.0 FL LAB HEMETOLOGY METHOD 07/23/2024 6:06 AM [facility] NRBC 0.0 <1.0 % LAB HEMETOLOGY METHOD 07/23/2024 6:06 AM [facility] NRBC Absolute 0.00 <0.10 K/mcL LAB HEMETOLOGY METHOD 07/23/2024 6:06 AM [facility] Neutrophils Relative 53.9 % LAB HEMETOLOGY METHOD 07/23/2024 6:06 AM [facility] Lymphocytes Relative 28.5 % LAB HEMETOLOGY METHOD 07/23/2024 6:06 AM [facility] Monocytes Relative 10.2 % LAB HEMETOLOGY METHOD 07/23/2024 6:06 AM [facility] Eosinophils Relative 6.7 % LAB HEMETOLOGY METHOD 07/23/2024 6:06 AM [facility] Basophils Relative 0.5 % LAB HEMETOLOGY METHOD 07/23/2024 6:06 AM [facility] Immature Granulocytes Relative 0.2 % LAB HEMETOLOGY METHOD 07/23/2024 6:06 AM [facility] Neutrophils Absolute 3.38 1.50 - 7.00 K/mcL LAB HEMETOLOGY METHOD 07/23/2024 6:06 AM [facility] Lymphocytes Absolute 1.79 1.00 - 5.00 K/mcL LAB HEMETOLOGY METHOD 07/23/2024 6:06 AM EDT [facility] Monocytes Absolute 0.64 0.20 - 1.00 K/mcL LAB HEMETOLOGY METHOD 07/23/2024 6:06 AM EDT [facility] Eosinophils Absolute 0.42 0.00 - 0.50 K/mcL LAB HEMETOLOGY METHOD 07/23/2024 6:06 AM EDT [facility] Basophils Absolute 0.03 0.00 - 0.20 K/mcL LAB HEMETOLOGY METHOD 07/23/2024 6:06 AM EDT [facility] Immature Granulocytes Absolute 0.01 0.00 - 0.03 K/mcL LAB HEMETOLOGY METHOD 07/23/2024 6:06 AM EDT [facility] Blood Venous blood specimen / Unknown 07/23/2024 4:44 AM EDT 07/23/2024 5:23 AM EDT us Franki Gaona MD LAB BLOOD ORDERABLES Final Resul t Performing Organization Address City/[facility] de Phone Number [facility] [address] [place] [address], [place] [phone] * Iron and TIBC (07/23/2024 4:44 AM EDT) Iron 111 50 - 160 mcg/dL LAB CHEMISTRY METHOD 07/23/2024 5:51 AM EDT [facility] TIBC 299 250 - 450 mcg/dL LAB CHEMISTRY METHOD 07/23/2024 5:51 AM EDT [facility] Iron Saturation 37 20 - 50 % LAB CHEMISTRY METHOD 07/23/2024 5:51 AM EDT [facility] Blood Venous blood specimen / Unknown 07/23/2024 4:44 AM EDT 07/23/2024 5:23 AM EDT us Franki Gaona MD LAB BLOOD ORDERABLES Final Resul t [facility] [address] [place] [address], documented in this encounter Visit Diagnoses Diagnosis Other assisted (current) drug therapy Essential (primary) hypertension Unspecified essential hypertension Anemia, unspecified documented in this encounter Care Teams Draughtsman Relationship Specialty Start Date End Date Franki Gaona MD [address] [place], [place] PCP - General Internal Medicine 06/04/24 documented as of this encounter
--- OUTSIDE RECORDS SUMMARY | 2024-08-06 17:13 | XMS_ITS | Encounter Summary ---
Author Organization [employer] [facility] Address [address] [place] [address] Care Team Providers Care Curriculum Consultant Name Role Phone Franki Gaona MD Primary Care Provider [phone] Encounter Details Date Type Department Care Team (Late st Contact Info) Description 07/09/2024 Lab Requisition [facility] - Main Lab [address] [facility] [place] [address] Franki Gaona MD [address] [place] [address] Dr [address] [place] Other email marketing manager (current) drug therapy Social History Tobacco Use [...] Diagnosis Comments CBC WITH AUTO DIFFERENTIAL Routine 07/09/2024 6:45 AM EDT Other alf (current) drug therapy LAVENDER - EDTA Routine 07/09/2024 6:45 AM EDT Other email marketing manager (current) drug therapy CBC AND DIFFERENTIAL Routine 07/09/2024 6:45 AM EDT Other email marketing manager (current) drug therapy HEMOGLOBIN Routine 07/09/2024 6:45 AM EDT Other email marketing manager (current) drug therapy documented in this encounter Results * Lavender tube (07/09/2024 6:45 AM EDT) Extra Tube Hold for add-ons. 07/09/2024 10:02 AM EDT [facility] Comment:Auto resulted. Blood Venous blood specimen / Unknown 07/09/2024 6:45 AM EDT 07/09/2024 8:11 AM EDT us Franki Gaona MD LAB BLOOD ORDERABLES Final Resul t [facility] [address] [place] [address], * (ABNORMAL) CBC auto differential (07/09/2024 6:45 AM EDT) WBC 8.2 4.8 - 10.8 K/mcL LAB HEMETOLOGY METHOD 07/[facility]2024 8[facility] RBC 4.60 4.50 - 5.50 M/mcL LAB HEMETOLOGY METHOD 07/09/2024 8:31 AM [facility] Hemoglobin 11.8(L) 13.5 - 17.5 g/dL LAB HEMETOLOGY METHOD 07/09/2024 8:31 AM [facility] Hematocrit 37.7(L) 42.0 - 54.0 % LAB HEMETOLOGY METHOD 07/09/2024 8:31 AM [facility] MCV 82.7 79.0 - 98.0 FL LAB HEMETOLOGY METHOD 07/09/2024 8:31 AM [facility] MCH 25.9(L) 27.0 - 32.0 pcg LAB HEMETOLOGY METHOD 07/09/2024 8:31 AM [facility] MCHC 31.3(L) 32.0 - 37.0 g/dL LAB HEMETOLOGY METHOD 07/09/2024 8:31 AM [facility] RDW 15.2(H) 11.0 - 15.0 % LAB HEMETOLOGY METHOD 07/09/2024 8:31 AM [facility] Platelets 225 130 - 400 K/mcL LAB HEMETOLOGY METHOD 07/09/2024 8:31 AM [facility] MPV 12.9(H) 7.0 - 11.0 FL LAB HEMETOLOGY METHOD 07/09/2024 8:31 AM [facility] NRBC 0.0 <1.0 % LAB HEMETOLOGY METHOD 07/09/2024 8:31 AM [facility] NRBC Absolute 0.00 <0.10 K/mcL LAB HEMETOLOGY METHOD 07/09/2024 8:31 AM [facility] Neutrophils Relative 63.2 % LAB HEMETOLOGY METHOD 07/09/2024 8:31 AM [facility] Lymphocytes Relative 22.6 % LAB HEMETOLOGY METHOD 07/09/2024 8:31 AM [facility] Monocytes Relative 7.1 % LAB HEMETOLOGY METHOD 07/09/2024 8:31 AM [facility] Eosinophils Relative 6.3 % LAB HEMETOLOGY METHOD 07/09/2024 8:31 AM [facility] Basophils Relative 0.4 % LAB HEMETOLOGY METHOD 07/09/2024 8:31 AM [facility] Immature Granulocytes Relative 0.4 % LAB HEMETOLOGY METHOD 07/09/2024 8:31 AM [facility] Neutrophils Absolute 5.19 1.50 - 7.00 K/mcL LAB HEMETOLOGY METHOD 07/09/2024 8:31 AM [facility] Lymphocytes Absolute 1.85 1.00 - 5.00 K/mcL LAB HEMETOLOGY METHOD 07/09/2024 8:31 AM [facility] Monocytes Absolute 0.58 0.20 - 1.00 K/mcL LAB HEMETOLOGY METHOD 07/09/2024 8:31 AM [facility] Eosinophils Absolute 0.52(H) 0.00 - 0.50 K/mcL LAB HEMETOLOGY METHOD 07/09/2024 8:31 AM EDT [facility] Basophils Absolute 0.03 0.00 - 0.20 K/[facility] LAB HEMETOLOGY METHOD 07/09/2024 8:31 AM EDT [facility] Immature Granulocytes Absolute 0.03 0.00 - 0.03 K/[facility] LAB HEMETOLOGY METHOD 07/09/2024 8:31 AM EDT [facility] Blood Venous blood specimen / Unknown 07/09/2024 6:45 AM EDT 07/09/2024 8:11 AM EDT us Franki Gaona MD LAB BLOOD ORDERABLES Final Resul t Performing Organization Address [facility]/ZIP Co de Phone Number [facility] [address] [place] [address], [place] [phone] * (ABNORMAL) Hemoglobin (07/09/2024 6:45 AM EDT) Hemoglobin 11.8(L) 13.5 - 17.5 g/dL LAB HEMETOLOGY METHOD 07/09/2024 8:31 AM EDT [facility] Blood Venous blood specimen / Unknown 07/09/2024 6:45 AM EDT 07/09/2024 8:11 AM EDT us Franki Gaona MD LAB BLOOD ORDERABLES Final Resul t Performing Organization Address [facility]/ZIP Co de Phone Number [facility] [address] [place] [address], [place] [phone] documented in this encounter Visit Diagnoses Diagnosis Other email marketing manager (current) drug therapy documented in this encounter Care Teams Curriculum Consultant Relationship Specialty Start Date End Date Franki Gaona MD [address] [facility] [place], [place] PCP - General Internal Medicine 06/04/24 documented as of this encounter
--- OUTSIDE RECORDS SUMMARY | 2024-08-06 17:13 | XMS_ITS | Encounter Summary ---
Author Organization [employer] [facility] Address [address] [place] [address] Care Team Providers Care Acid Changer Name Role Phone Franki Gaona MD Primary Care Provider [phone] Encounter Details Date Type Department Care Team (Late st Contact Info) Description 04/30/[address] [facility] - Main Lab [address] [facility] [place] [address] Social History Tobacco Use Types [...] on filedocumented in this encounter Care Teams Acid Changer Relationship Specialty Start Date End Date Franki Gaona MD [address] [place], [place] PCP - General Internal Medicine 06/04/24 documented as of this encounter
--- OUTSIDE RECORDS SUMMARY | 2024-08-06 17:13 | XMS_ITS | Encounter Summary ---
Author Organization [facility] Address [address] [place] [address] Care Team Providers Care Senior Energy Consultant Name Role Phone Franki Gaona MD Primary Care Provider [phone] Encounter Details Date Type Department Care Team (Late st Contact Info) Description 07/27/2024 Lab Requisition [facility] - Main Lab [address] [facility] [place] [address] Franki Gaona MD [address] [place] [address] Dr [address] Left Hand [place] Type 2 diabetes mellitus without complications (CMS/[facility]) Social History Tobacco Use Types Packs/Day Years [...] Name Priority Date/Time Associated Diagnosis Comments HEMOGLOBIN A1C Routine 07/27/2024 5:35 AM EDT Type 2 diabetes mellitus without complications documented in this encounter Results * (ABNORMAL) Hemoglobin A1c (07/27/2024 5:35 AM EDT) Hemoglobin A1C 7.9(H) <6.5 % LAB CHEMISTRY METHOD 07/27/2024 10:30 AM EDT [facility] Mean Bld Glu Estim. 180 mg/dL LAB CHEMISTRY METHOD 07/27/2024 10:30 AM EDT [facility] Blood Venous blood specimen / Unknown 07/27/2024 5:35 AM EDT 07/27/2024 6:52 AM EDT us Franki Gaona MD LAB BLOOD ORDERABLES Final Resul t [facility] [address] [place] [address], documented in this encounter Visit Diagnoses Diagnosis Type 2 diabetes mellitus without complications documented in this encounter Care Teams Senior Energy Consultant Relationship Specialty Start Date End Date Franki Gaona MD [address] [place] [address] Dr [address] [place], [place] PCP - General Internal Medicine 06/04/24 documented as of this encounter
--- OUTSIDE RECORDS SUMMARY | 2024-08-06 17:13 | XMS_ITS | Encounter Summary ---
Author Organization [employer] Address [address] [place] [address] Care Team Providers Care Social Worker Masters Name Role Phone Franki Gaona MD Primary Care Provider [phone] Encounter Details Date Type Department Care Team (Late st Contact Info) Description 04/23/2024 Lab Requisition [facility] - Main Lab [address] [facility] [place] [address] Franki Gaona MD [address] [place] [address] [address] [place] Other nursing home (current) drug therapy; Chronic kidney disease, stage [...] DIFFERENTIAL Routine 04/23/2024 5:05 AM EST Other nursing home (current) drug therapy Chronic kidney disease, stage 3a (CMS/HCC) Hypo-osmolality and hyponatremia Type 2 diabetes mellitus with other specified complication (CMS/HCC) CREATININE, SERUM Routine 04/23/2024 5:0 5 AM EST Other longshore equipment operator (current) drug therapy Chronic kidney disease, stage 3a (CMS/HCC) Hypo-osmolality and hyponatremia Type 2 diabetes mellitus with other specified complication (CMS/HCC) CBC AND DIFFERENTIAL Routine 04/23/2024 5:05 AM EST Other longshore equipment operator (current) drug therapy Chronic kidney disease, stage 3a (CMS/HCC) Hypo-osmolality and hyponatremia Type 2 diabetes mellitus with other specified complication (CMS/HCC) BUN Routine 04/23/2024 5:05 AM EST Other nursing home (current) drug therapy Chronic kidney disease, stage 3a (CMS/HCC) Hypo-osmolality and hyponatremia Type 2 diabetes mellitus with other specified complication (CMS/HCC) ELECTROLYTE PANEL Routine 04/23/2024 5:0 5 AM EST Other nursing home (current) drug therapy Chronic kidney disease, stage 3a (CMS/HCC) Hypo-osmolality and hyponatremia Type 2 diabetes mellitus with other specified complication (CMS/HCC) documented in this encounter Results * (ABNORMAL) CBC auto differential (04/23/2024 5:05 AM EST) WBC 7.6 4.8 - 10.8 K/mcL LAB HEMETOLOGY METHOD 04/23/2024 6:31 AM [facility] RBC 3.30(L) 4.50 - 5.50 M/mcL LAB HEMETOLOGY METHOD 04/23/2024 6:31 AM [facility] Hemoglobin 8.8(L) 13.5 - 17.5 g/dL LAB HEMETOLOGY METHOD 04/23/2024 6:31 AM [facility] Hematocrit 27.8(L) 42.0 - 54.0 % LAB HEMETOLOGY METHOD 04/23/2024 6:31 AM [facility] MCV 83.2 79.0 - 98.0 FL LAB HEMETOLOGY METHOD 04/23/2024 6:31 AM [facility] MCH 26.3(L) 27.0 - 32.0 pcg LAB HEMETOLOGY METHOD 04/23/2024 6:31 AM [facility] MCHC 31.7(L) 32.0 - 37.0 g/dL LAB HEMETOLOGY METHOD 04/23/2024 6:31 AM [facility] RDW 15.1(H) 11.0 - 15.0 % LAB HEMETOLOGY METHOD 04/23/2024 6:31 AM [facility] Platelets 304 130 - 400 K/mcL LAB HEMETOLOGY METHOD 04/23/2024 6:31 AM [facility] MPV 11.6(H) 7.0 - 11.0 FL LAB HEMETOLOGY METHOD 04/23/2024 6:31 AM [facility] NRBC 0.0 <1.0 % LAB HEMETOLOGY METHOD 04/23/2024 6:31 AM [facility] NRBC Absolute 0.00 <0.10 K/mcL LAB HEMETOLOGY METHOD 04/23/2024 6:31 AM [facility] Neutrophils Relative 61.3 % LAB HEMETOLOGY METHOD 04/23/2024 6:31 AM [facility] Lymphocytes Relative 24.6 % LAB HEMETOLOGY METHOD 04/23/2024 6:31 AM [facility] Monocytes Relative 7.5 % LAB HEMETOLOGY METHOD 04/23/2024 6:31 AM [facility] Eosinophils Relative 6.0 % LAB HEMETOLOGY METHOD 04/23/2024 6:31 AM [facility] Basophils Relative 0.3 % LAB HEMETOLOGY METHOD 04/23/2024 6:31 AM [facility] Immature Granulocytes Relative 0.3 % LAB HEMETOLOGY METHOD 04/23/2024 6:31 AM [facility] Neutrophils Absolute 4.68 1.50 - 7.00 K/mcL LAB HEMETOLOGY METHOD 04/23/2024 6:31 AM [facility] Lymphocytes Absolute 1.88 1.00 - 5.00 K/mcL LAB HEMETOLOGY METHOD 04/23/2024 6:31 AM [facility] Monocytes Absolute 0.57 0.20 - 1.00 K/mcL LAB HEMETOLOGY METHOD 04/23/2024 6:31 AM EST [facility] Eosinophils Absolute 0.46 0.00 - 0.50 K/mcL LAB HEMETOLOGY METHOD 04/23/2024 6:31 AM EST [facility] Basophils Absolute 0.02 0.00 - 0.20 K/mcL LAB HEMETOLOGY METHOD 04/23/2024 6:31 AM EST [facility] Immature Granulocytes Absolute 0.02 0.00 - 0.03 K/[facility] HEMETOLOGY METHOD 04/23/2024 6:31 AM EST [facility] Blood Venous blood specimen / Unknown 04/23/2024 5:05 AM EST 04/23/2024 6:07 AM EST us Franki Gaona MD LAB BLOOD ORDERABLES Final Resul t Performing Organization Address [facility] de Phone Number [facility] [address] [place] [address], [place] [phone] * (ABNORMAL) Creatinine (04/23/2024 5:05 AM EST) Creatinine 2.48(H) 0.70 - 1.30 mg/dL LAB CHEMISTRY METHOD 04/23/2024 6:48 AM EST [facility] eGFR 31(L) >=60 mL/min/1. 73m2 LAB CHEMISTRY METHOD 04/23/2024 6:48 AM EST [facility] Comment:Calculation based on the??Chronic Kidney Disease Epidemiology Collaboration (CKD-EPI) equation refit??without adjustment for race. Blood Venous blood specimen / Unknown 04/23/2024 5:05 AM EST 04/23/2024 6:07 AM EST us Franki Gaona MD LAB BLOOD ORDERABLES Final Resul t Performing Organization Address [facility]/ZIP Co de Phone Number [facility] [address] [place] [address], [place] [phone] * (ABNORMAL) BUN (04/23/2024 5:05 AM EST) BUN 62(H) 5 - 25 mg/dL LAB CHEMISTRY METHOD 04/23/2024 7:00 AM [facility] Blood Venous blood specimen / Unknown 04/23/2024 5:05 AM EST 04/23/2024 6:07 AM EST us Franki Gaona MD LAB BLOOD ORDERABLES Final Resul t Performing Organization Address [facility]/ZIP Co de Phone Number [facility] [address] [place] [address], [place] [phone] * (ABNORMAL) Electrolyte panel (04/23/2024 5:05 AM EST) Sodium 140 133 - 145 mmol/L LAB CHEMISTRY METHOD 04/23/2024 6:48 AM [facility] Potassium 4.8 3.5 - 5.5 mmol/L LAB CHEMISTRY METHOD 04/23/2024 6:48 AM [facility] Chloride 112(H) 96 - 110 mmol/L LAB CHEMISTRY METHOD 04/23/2024 6:48 AM [facility] CO2 23 21 - 32 mmol/L LAB CHEMISTRY METHOD 04/23/2024 6:48 AM [facility] Anion Gap 5 3 - 11 LAB CHEMISTRY METHOD 04/23/2024 6:48 AM [facility] Blood Venous blood specimen / Unknown 04/23/2024 5:05 AM EST 04/23/2024 6:07 AM EST us Franki Gaona MD LAB BLOOD ORDERABLES Final Resul t Performing Organization Address City/[facility]/ZIP Co de Phone Number [facility] [address] [place] [address], [place] [phone] documented in this encounter Visit Diagnoses Diagnosis Other nursing home (current) drug therapy Chronic kidney disease, stage 3a (CMS/HCC) Hypo-osmolality and hyponatremia Type 2 diabetes mellitus with other specified complication documented in this encounter Care Teams Social Worker Masters Relationship Specialty Start Date End Date Franki Gaona MD [address] [place] [address] Dr [address] KACY Franz PCP - General Internal Medicine 06/04/24 documented as of this encounter
--- OUTSIDE RECORDS SUMMARY | 2024-08-06 17:14 | XMS_ITS | Encounter Summary ---
Author Organization [employer] Address [address] [place] [address] Care Team Providers Care Tool Operator Name Role Phone Franki Gaona MD Primary Care Provider [phone] Encounter Details Date Type Department Care Team (Late st Contact Info) Description 04/16/[address] [facility] - Main Lab [address] [facility] [place] [address] Franki Gaona MD [address] [place] [address] [address] [place], [place] Hypo-osmolality and hyponatremia; Type 2 diabetes mellitus [...] (CMS/HCC) documented in this encounter Results * [place] top urine tube (04/16/2024 6:20 AM EST) Extra Tube Hold for add-ons. 04/16/2024 9:01 AM EST [facility] Comment:Auto resulted. Urine Urine specimen obtained by clean catch procedure / Unknown 04/16/2024 6:20 AM EST 04/16/2024 7:39 AM EST us Franki Gaona MD LAB URINE ORDERABLES Final Resul t [facility] [address] [place] [address], * Tran urine culture tube (04/16/2024 6:20 AM EST) Extra Tube Hold for add-ons. 04/16/2024 9:01 AM EST [facility] Comment:Auto resulted. Urine Urine specimen obtained by clean catch procedure / Unknown 04/16/2024 6:20 AM EST 04/16/2024 7:39 AM EST us Franki Gaona MD LAB URINE ORDERABLES Final Resul t Performing Organization Address [facility] Co de Phone Number [facility] [address] [place] [address], [place] [phone] * Lavender tube (04/16/2024 6:20 AM EST) Extra Tube Hold for add-ons. 04/16/2024 9:01 AM [facility] Comment:Auto resulted. Blood Venous blood specimen / Unknown 04/16/2024 6:20 AM EST 04/16/2024 7:34 AM EST us Franki Gaona MD LAB BLOOD ORDERABLES Final Resul t Performing Organization Address [facility] de Phone Number [facility] [address] [place] [address], [place] [phone] * (ABNORMAL) Iron and TIBC (04/16/2024 6:20 AM EST) Iron 41(L) 50 - 160 mcg/dL LAB CHEMISTRY METHOD 04/16/2024 7:56 AM EST [facility] TIBC 353 250 - 450 mcg/dL LAB CHEMISTRY METHOD 04/16/2024 7:56 AM [facility] Iron Saturation 12(L) 20 - 50 % LAB CHEMISTRY METHOD 04/16/2024 7:56 AM EST [facility] Blood Venous blood specimen / Unknown 04/16/2024 6:20 AM EST 04/16/2024 7:34 AM EST us Franki Gaona MD LAB BLOOD ORDERABLES Final Resul t Performing Organization Address [facility] de Phone Number [facility] [address] [place] [address], [place] [phone] * Ferritin (04/16/2024 6:20 AM EST) Pathologist [facility] Ferritin 40 26 - 388 ng/mL LAB CHEMISTRY METHOD 04/16/2024 7:56 AM EST [facility] Blood Venous blood specimen / Unknown 04/16/2024 6:20 AM EST 04/16/2024 7:34 AM EST us Franki Gaona MD LAB BLOOD ORDERABLES Final Resul t Performing Organization Address [facility] de Phone Number [facility] [address] [place] [address], [place] [phone] * Parathyroid hormone intact (04/16/2024 6:20 AM EST) Pathologist [facility] PTH 85.6 18.5 - 88.0 pcg/mL LAB CHEMISTRY METHOD 04/16/2024 8:53 AM EST [facility] Blood Venous blood specimen / Unknown 04/16/2024 6:20 AM EST 04/16/2024 7:34 AM EST us Franki Gaona MD LAB BLOOD ORDERABLES Final Resul t Performing Organization Address [facility] de Phone Number [facility] [address] [place] [address], [place] [phone] * (ABNORMAL) Renal function panel (04/16/2024 6:20 AM EST) Pathologist [facility] Sodium 144 133 - 145 mmol/L LAB CHEMISTRY METHOD 04/16/2024 7:56 AM EST [facility] Potassium 4.7 3.5 - 5.5 mmol/L LAB CHEMISTRY METHOD 04/16/2024 7:56 AM EST [facility] Chloride 115(H) 96 - 110 mmol/L LAB CHEMISTRY METHOD 04/16/2024 7:56 AM [facility] CO2 21 21 - 32 mmol/L LAB CHEMISTRY METHOD 04/16/2024 7:56 AM [facility] Anion Gap 8 3 - 11 LAB CHEMISTRY METHOD 04/16/2024 7:56 AM [facility] Glucose 94 70 - 100 mg/dL LAB CHEMISTRY METHOD 04/16/2024 7:56 AM [facility] BUN 37(H) 5 - 25 mg/dL LAB CHEMISTRY METHOD 04/16/2024 7:56 AM [facility] Creatinine 2.29(H) 0.70 - 1.30 mg/dL LAB CHEMISTRY METHOD 04/16/2024 7:56 AM [facility] eGFR 35(L) >=60 mL/min/1. 73m2 LAB CHEMISTRY METHOD 04/16/2024 7:56 AM [facility] Comment: Calculation based on the??Chronic Kidney Disease Epidemiology Collaboration (CKD-EPI) equation refit??without adjustment for race. Calculation based on the??Chronic Kidney Disease Epidemiology Collaboration (CKD-EPI) equation refit??without adjustment for race. BUN/Creatinine Ratio 16.2 LAB CHEMISTRY METHOD 04/16/2024 7:56 AM [facility] Albumin 3.1(L) 3.2 - 5.0 g/dL LAB CHEMISTRY METHOD 04/16/2024 7:56 AM [facility] Calcium 9.2 8.5 - 10.5 mg/dL LAB CHEMISTRY METHOD 04/16/2024 7:56 AM [facility] Phosphorus 3.8 2.5 - 4.5 mg/dL LAB CHEMISTRY METHOD 04/16/2024 7:56 AM [facility] Blood Venous blood specimen / Unknown 04/16/2024 6:20 AM EST 04/16/2024 7:34 AM EST us Franki Gaona MD LAB BLOOD ORDERABLES Final Resul t [facility] [address] [place] [address], * (ABNORMAL) Comprehensive metabolic panel (04/16/2024 6:20 AM EST) Sodium 144 133 - 145 mmol/L LAB CHEMISTRY METHOD 04/16/2024 7:56 AM EST [facility] Potassium 4.7 3.5 - 5.5 mmol/L LAB CHEMISTRY METHOD 04/16/2024 7:56 AM [facility] Chloride 115(H) 96 - 110 mmol/L LAB CHEMISTRY METHOD 04/16/2024 7:56 AM [facility] CO2 21 21 - 32 mmol/L LAB CHEMISTRY METHOD 04/16/2024 7:56 AM [facility] Anion Gap 8 3 - 11 LAB CHEMISTRY METHOD 04/16/2024 7:56 AM [facility] Glucose 94 70 - 100 mg/dL LAB CHEMISTRY METHOD 04/16/2024 7:56 AM [facility] BUN 37(H) 5 - 25 mg/dL LAB CHEMISTRY METHOD 04/16/2024 7:56 AM [facility] Creatinine 2.29(H) 0.70 - 1.30 mg/dL LAB CHEMISTRY METHOD 04/16/2024 7:56 AM [facility] eGFR 35(L) >=60 mL/min/1. 73m2 LAB CHEMISTRY METHOD 04/16/2024 7:56 AM [facility] Comment:Calculation based on the??Chronic Kidney Disease Epidemiology Collaboration (CKD-EPI) equation refit??without adjustment for race. BUN/Creatinine Ratio 16.2 LAB CHEMISTRY METHOD 04/16/2024 7:56 AM [facility] Calcium 9.2 8.5 - 10.5 mg/dL LAB CHEMISTRY METHOD 04/16/2024 7:56 AM [facility] AST (SGOT) 9(L) 10 - 42 unit/L LAB CHEMISTRY METHOD 04/16/2024 7:56 AM [facility] ALT (SGPT) 21 10 - 60 unit/L LAB CHEMISTRY METHOD 04/16/2024 7:56 AM [facility] Alkaline Phosphatase 119 42 - 121 unit/L LAB CHEMISTRY METHOD 04/16/2024 7:56 AM [facility] Total Protein 6.7 6.0 - 8.0 g/dL LAB CHEMISTRY METHOD 04/16/2024 7:56 AM [facility] Albumin 3.1(L) 3.2 - 5.0 g/dL LAB CHEMISTRY METHOD 04/16/2024 7:56 AM [facility] Total Bilirubin 0.2 0.0 - 1.4 mg/dL LAB CHEMISTRY METHOD 04/16/2024 7:56 AM [facility] Blood Venous blood specimen / Unknown 04/16/2024 6:20 AM EST 04/16/2024 7:34 AM EST us Franki Gaona MD LAB BLOOD ORDERABLES Final Resul t [facility] [address] [place] [address], documented in this encounter Visit Diagnoses Diagnosis Hypo-osmolality and hyponatremia Type 2 diabetes mellitus with other specified complication Chronic kidney disease, stage 3a (CMS/HCC) documented in this encounter Care Teams Tool Operator Relationship Specialty Start Date End Date Franki Gaona MD [address] [place] [address] [place] PCP - General Internal Medicine 06/04/24 documented as of this encounter
--- OUTSIDE RECORDS SUMMARY | 2024-08-06 17:14 | XMS_ITS | Encounter Summary ---
Author Organization [email or web address] Address [address] [place] [address] Care Team Providers Care Air Bag Stripper Name Role Phone Franki Gaona MD Primary Care Provider [phone] Encounter Details Date Type Department Care Team (Late st Contact Info) Description 05/16/2024 Lab Requisition [facility] - Main Lab [address] [place] [address] Franki Gaona MD [address] [place] [address] [address] KACY Franz Chronic kidney disease, stage 3 unspecified (CMS/HCC); [...] LAB CHEMISTRY METHOD 05/16/2024 8:01 AM EST [facility] TIBC 298 250 - 450 mcg/dL LAB CHEMISTRY METHOD 05/16/2024 8:[address] [facility] Iron Saturation 8(L) 20 - 50 % LAB CHEMISTRY METHOD 05/16/2024 8:[address] [facility] Blood Venous blood specimen / Unknown 05/16/2024 6:15 AM EST 05/16/2024 7:28 AM EST us Franki Gaona MD LAB BLOOD ORDERABLES Final Resul t Performing Organization Address City/[facility]/ZIP Co de Phone Number [facility] [address] [place] [address], [place] [phone] * Ferritin (05/16/2024 6:15 AM EST) Ferritin 142 26 - 388 ng/mL LAB CHEMISTRY METHOD 05/16/2024 8:[address] [facility] Blood Venous blood specimen / Unknown 05/16/2024 6:15 AM EST 05/16/2024 7:28 AM EST us Franki Gaona MD LAB BLOOD ORDERABLES Final Resul t Performing Organization Address City/[facility]/ZIP Co de Phone Number [facility] [address] [place] [address], [place] [phone] * (ABNORMAL) Complete blood count (05/16/2024 6:15 AM EST) WBC 11.4(H) 4.8 - 10.8 K/[facility] HEMETOLOGY METHOD 05/16/2024 7:[address] [facility] RBC 3.50(L) 4.50 - 5.50 M/[facility] LAB HEMETOLOGY METHOD 05/16/2024 7:[address] [facility] Hemoglobin 8.9(L) 13.5 - 17.5 g/dL LAB HEMETOLOGY METHOD 05/16/2024 7:[address] [facility] Hematocrit 28.0(L) 42.0 - 54.0 % LAB HEMETOLOGY METHOD 05/16/2024 7:[address] [facility] MCV 80.5 79.0 - 98.0 FL LAB HEMETOLOGY METHOD 05/16/2024 7:[address] [facility] MCH 25.6(L) 27.0 - 32.0 pcg LAB HEMETOLOGY METHOD 05/16/2024 7:[address] [facility] MCHC 31.8(L) 32.0 - 37.0 g/dL LAB HEMETOLOGY METHOD 05/16/2024 7:[address] [facility] RDW 14.0 11.0 - 15.0 % LAB HEMETOLOGY METHOD 05/16/2024 7:[address] [facility] Platelets 352 130 - 400 K/mcL LAB HEMETOLOGY METHOD 05/16/2024 7:[address] [facility] MPV 11.2(H) 7.0 - 11.0 FL LAB HEMETOLOGY METHOD 05/16/2024 7:[address] [facility] NRBC 0.0 <1.0 % LAB HEMETOLOGY METHOD 05/16/2024 7:[address] [facility] NRBC Absolute 0.00 <0.10 K/mcL LAB HEMETOLOGY METHOD 05/16/2024 7:[address] [facility] Blood Venous blood specimen / Unknown 05/16/2024 6:15 AM EST 05/16/2024 7:28 AM EST us Franki Gaona MD LAB BLOOD ORDERABLES Final Resul t [facility] [address] [place] [address], documented in this encounter Visit Diagnoses Diagnosis Chronic kidney disease, stage 3 unspecified (CMS/[facility]) Iron deficiency anemia, unspecified documented in this encounter Care Teams Air Bag Stripper Relationship Specialty Start Date End Date Franki Gaona MD [address] [place] [address] Dr [address] KACY Franz PCP - General Internal Medicine 06/04/24 documented as of this encounter
--- OUTSIDE RECORDS SUMMARY | 2024-08-06 17:14 | XMS_ITS | Encounter Summary ---
Author Organization [facility] Address [address] [place] [address] Care Team Providers Care Crusher Dry Ground Mica Name Role Phone Franki Gaona MD Primary Care Provider [phone] Encounter Details Date Type Department Care Team (Late st Contact Info) Description 04/03/2024 Lab Requisition [facility] - Main Lab [address] [place] [address] Franki Gaona MD [address] [place] [address] [address] [place] M [place] Chronic kidney disease, stage 4 (severe) (CMS/HCC); [...] LAB CHEMISTRY METHOD 04/03/2024 7:28 AM EST [facility] Blood Venous blood specimen / Unknown 04/03/2024 6:00 AM EST 04/03/2024 6:45 AM EST us Franki Gaona MD LAB BLOOD ORDERABLES Final Resul t [facility] [address] [place] [address], [place] [phone] * (ABNORMAL) Comprehensive metabolic panel (04/03/2024 6:00 AM EST) Sodium 137 133 - 145 mmol/L LAB CHEMISTRY METHOD 04/03/2024 7:28 AM [facility] Potassium 4.6 3.5 - 5.5 mmol/L LAB CHEMISTRY METHOD 04/03/2024 7:28 AM [facility] Chloride 108 96 - 110 mmol/L LAB CHEMISTRY METHOD 04/03/2024 7:28 AM [facility] CO2 20(L) 21 - 32 mmol/L LAB CHEMISTRY METHOD 04/03/2024 7:28 AM [facility] Anion Gap 9 3 - 11 LAB CHEMISTRY METHOD 04/03/2024 7:28 AM [facility] Glucose 77 70 - 100 mg/dL LAB CHEMISTRY METHOD 04/03/2024 7:28 AM [facility] BUN 25 5 - 25 mg/dL LAB CHEMISTRY METHOD 04/03/2024 7:28 AM [facility] Creatinine 2.23(H) 0.70 - 1.30 mg/dL LAB CHEMISTRY METHOD 04/03/2024 7:28 AM [facility] eGFR 36(L) >=60 mL/min/1. 73m2 LAB CHEMISTRY METHOD 04/03/2024 7:28 AM [facility] Comment:Calculation based on the??Chronic Kidney Disease Epidemiology Collaboration (CKD-EPI) equation refit??without adjustment for race. BUN/Creatinine Ratio 11.2 LAB CHEMISTRY METHOD 04/03/2024 7:28 AM [facility] Calcium 9.4 8.5 - 10.5 mg/dL LAB CHEMISTRY METHOD 04/03/2024 7:28 AM [facility] AST (SGOT) 12 10 - 42 unit/L LAB CHEMISTRY METHOD 04/03/2024 7:28 AM [facility] ALT (SGPT) 13 10 - 60 unit/L LAB CHEMISTRY METHOD 04/03/2024 7:28 AM [facility] Alkaline Phosphatase 120 42 - 121 unit/L LAB CHEMISTRY METHOD 04/03/2024 7:28 AM [facility] Total Protein 6.0 6.0 - 8.0 g/dL LAB CHEMISTRY METHOD 04/03/2024 7:28 AM [facility] Albumin 3.0(L) 3.2 - 5.0 g/dL LAB CHEMISTRY METHOD 04/03/2024 7:28 AM [facility] Total Bilirubin 0.2 0.0 - 1.4 mg/dL LAB CHEMISTRY METHOD 04/03/2024 7:28 AM [facility] Blood Venous blood specimen / Unknown 04/03/2024 6:00 AM EST 04/03/2024 6:45 AM EST us Franki Gaona MD LAB BLOOD ORDERABLES Final Resul t [facility] [address] [place] [address], documented in this encounter Visit Diagnoses Diagnosis Chronic kidney disease, stage 4 (severe) (CMS/HCC) Type 2 diabetes mellitus without complications documented in this encounter Care Teams Crusher Dry Ground Mica Relationship Specialty Start Date End Date Franki Gaona MD [address] [place] [address] Dr Jona Mit[place] PCP - General Internal Medicine 06/04/24 documented as of this encounter
--- OUTSIDE RECORDS SUMMARY | 2024-08-06 17:14 | XMS_ITS | Clinical Summary ---
Author Organization [facility] Address [address] [address] Phone Care Team Providers Care Computer Compositor Name Role Phone CandelariaFranki DO Primary Care Provider [phone] Allergies No known active allergies Medications acetaminophen [...] every 30 (thirty) days 4 Active cloNIDine (Kxaudppj-HBV-0) 0.3 MG/24HR patch weeklyIndications :Stage 3a chronic [...] 60 tablet 11 4 04/18/20 25 Active losartan (COZAAR) 100 MG tabletIndications :Hypertension Take 1 tablet (100 mg total) by mouth 1 (one) time each day 30 tablet 5 5 12/09/19 25 Active Active Problems Problem Noted Date Diagnosed Date Stage 3b chronic kidney disease 06/11/2024 Persistent proteinuria 06/11/2024 Other iron deficiency anemia 04/18/2024 Anemia in chronic kidney disease 11/07/2023 Renal artery stenosis 11/07/2023 Stage 3a chronic kidney disease 01/17/2023 Hypertensive chronic kidney disease 01/17/2023 Hyposmolality and/or hyponatremia Encounters Date Type Department Care Team Description 06/30/2024 Orders Only [facility] [address] [place] [phone] Charlene Hand ARNP Persistent proteinuria (Primary Dx); Stage 3b chronic kidney disease (HCC); Anemia in chronic kidney disease; Other iron deficiency anemia 06/28/2024 Office Communication [facility] [address] [phone] Charlene Hand ARNP 06/17/2024 Orders Only [facility] [address] [phone] Charlene Hand ARNP Stage 3b chronic kidney disease (HCC); Hyposmolality and/or hyponatremia 06/11/2024 10:15 AM EST Office Visit [facility] [address] [phone] Charlene Hand ARNP Stage 3b chronic kidney disease (HCC) (Primary Dx); Hypertensive chronic kidney disease; Anemia in chronic kidney disease; Renal artery stenosis (HCC); Other iron deficiency anemia; Hyposmolality and/or hyponatremia; Persistent proteinuria 05/16/2024 Orders Only [facility] [address] [phone] Charlene Hand ARNP Iron deficiency anemia, not otherwise specified; Stage 3a chronic kidney disease (HCC) from Last 3 Months Social History Tobacco [...] Sign Reading Time Taken Comments Blood Pressure 150/90 06/11/2024 10:18 AM EST Pulse 106 06/11/2024 9:59 AM EST Temperature - - Respiratory Rate - - Oxygen Saturation 99% 06/11/2024 9:59 AM EST Inhaled Oxygen Concentration - - Weight 76.7 kg (169 lb) 06/11/2024 9:59 AM EST Height - - Body Mass Index - - Plan of Treatment Upcoming Encounters Date Type Department Care Team (Late st Contact Info) Description 10/09/2024 2:30 PM EDT Office Visit [facility] [address] [phone] Charlene Hand ARNP [address] [phone] Health Maintenance Due Date Last Done Comments Pneumococcal Vaccine: Pediat rics (0 to 5 Years) and At-Risk Patients (6 to 64 Years) (1 of 2 - PCV) 1982 Hepatitis B Vaccine (1 of 3 - 19+ 3-dose series) 08/29 Diabetes: Ophthalmology Exam 01/17/2023 Diabetes: Pedal Pulse Checked 01/17/2023 Diabetes: Sensory Foot Exam 01/17/2023 Diabetes: Visual Foot Exam 01/17/2023 Diabetes: Hemoglobin A1C 07/29/2024 04/30/2024 Influenza Vaccine (Season Ended) 2024 Procedures Procedure Name Priority Date/Time Associated Diagnosis Comments EXT RESULT ENTRY Routine 06/04/2024 Stage 3b chronic kidney disease (HCC) EXT RESULT ENTRY Routine 05/28/2024 Stage 3b chronic kidney disease (HCC) EXT RESULT ENTRY Routine 05/16/2024 Stage 3b chronic kidney disease (HCC) EXT RESULT ENTRY Routine 05/08/2024 Stage 3b chronic kidney disease (HCC) from Last 3 Months Results * (ABNORMAL) EXT RESULT ENTRY (06/04/2024) Only the most recent of4 resultswithin the time period is included. Hemoglobin 9.2(A) 13.5 - 17.5 06/04/2024 us Historical Provider LAB BLOOD ORDERABLES Aaliyah l Result from Last 3 Months Insurance MEDICARE MEDICARE Care Teams Computer Compositor Relationship Specialty Start Date End Date Franki Gaona DO [address] [place] [address] [address] [place], [place] PCP - General Internal Medicine 01/17/23
--- OUTSIDE RECORDS SUMMARY | 2024-08-06 17:14 | XMS_ITS | Encounter Summary ---
Author Organization [employer] [facility] Address [address] [place] [address] Care Team Providers Care Baby Formula Worker Name Role Phone Franki Gaona MD Primary Care Provider [phone] Encounter Details Date Type Department Care Team (Latest Contact Info) Description 03/06/2024 Lab Requisition [facility] - Main Lab [address] [place] [address] Franki Gaona MD [address] [place] [address] Dr [address] KACY Franz Schizoaffective disorder, unspecified (CMS/HCC) Social History Tobacco [...] AM EST) WBC 6.7 4.8 - 10.8 K/mcL LAB HEMETOLOGY METHOD 03/06/2024 6:59 AM EST [facility] LAB RBC 3.00(L) 4.50 - 5.50 M/mcL LAB HEMETOLOGY METHOD 03/06/2024 6:59 AM [facility] LAB Hemoglobin 8.0(L) 13.5 - 17.5 g/dL LAB HEMETOLOGY METHOD 03/06/2024 6:59 AM [facility] LAB Hematocrit 23.4(L) 42.0 - 54.0 % LAB HEMETOLOGY METHOD 03/06/2024 6:59 AM [facility] LAB MCV 78.0(L) 79.0 - 98.0 FL LAB HEMETOLOGY METHOD 03/06/2024 6:59 AM [facility] LAB MCH 26.7(L) 27.0 - 32.0 pcg LAB HEMETOLOGY METHOD 03/06/2024 6:59 AM [facility] LAB MCHC 34.2 32.0 - 37.0 g/dL LAB HEMETOLOGY METHOD 03/06/2024 6:59 AM [facility] LAB RDW 13.6 11.0 - 15.0 % LAB HEMETOLOGY METHOD 03/06/2024 6:59 AM [facility] LAB Platelets 254 130 - 400 K/mcL LAB HEMETOLOGY METHOD 03/06/2024 6:59 AM [facility] LAB MPV 11.3(H) 7.0 - 11.0 FL LAB HEMETOLOGY METHOD 03/06/2024 6:59 AM [facility] LAB NRBC 0.0 <1.0 % LAB HEMETOLOGY METHOD 03/06/2024 6:59 AM [facility] LAB NRBC Absolute 0.00 <0.10 K/mcL LAB HEMETOLOGY METHOD 03/06/2024 6:59 AM [facility] Neutrophils Relative 63.6 % LAB HEMETOLOGY METHOD 03/06/2024 6:59 AM [facility] Lymphocytes Relative 23.9 % LAB HEMETOLOGY METHOD 03/06/2024 6:59 AM [facility] Monocytes Relative 9.6 % LAB HEMETOLOGY METHOD 03/06/2024 6:59 AM [facility] Eosinophils Relative 2.4 % LAB HEMETOLOGY METHOD 03/06/2024 6:59 AM [facility] Basophils Relative 0.2 % LAB HEMETOLOGY METHOD 03/06/2024 6:59 AM [facility] Immature Granulocytes Relative 0.3 % LAB HEMETOLOGY METHOD 03/06/2024 6:59 AM [facility] Neutrophils Absolute 4.23 1.50 - 7.00 K/mcL LAB HEMETOLOGY METHOD 03/06/2024 6:59 AM [facility] Lymphocytes Absolute 1.59 1.00 - 5.00 K/mcL LAB HEMETOLOGY METHOD 03/06/2024 6:59 AM [facility] Monocytes Absolute 0.64 0.20 - 1.00 K/mcL LAB HEMETOLOGY METHOD 03/06/2024 6:59 AM [facility] Eosinophils Absolute 0.16 0.00 - 0.50 K/mcL LAB HEMETOLOGY METHOD 03/06/2024 6:59 AM [facility] Basophils Absolute 0.01 0.00 - 0.20 K/mcL LAB HEMETOLOGY METHOD 03/06/2024 6:59 AM [facility] Immature Granulocytes Absolute 0.02 0.00 - 0.03 K/mcL LAB HEMETOLOGY METHOD 03/06/2024 6:59 AM [facility] Blood Venous blood specimen / Unknown 03/06/2024 4:50 AM EST 03/06/2024 6:38 AM EST us Franki Gaona MD LAB BLOOD ORDERABLES Final Resul t [facility] [address] [place] [address], [place] [phone] * (ABNORMAL) Comprehensive metabolic panel (03/06/2024 4:50 AM EST) Sodium 131(L) 133 - 145 mmol/L LAB CHEMISTRY METHOD 03/06/2024 7:08 AM [facility] Potassium 4.0 3.5 - 5.5 mmol/L LAB CHEMISTRY METHOD 03/06/2024 7:08 AM [facility] Chloride 98 96 - 110 mmol/L LAB CHEMISTRY METHOD 03/06/2024 7:08 AM [facility] CO2 24 21 - 32 mmol/L LAB CHEMISTRY METHOD 03/06/2024 7:08 AM [facility] Anion Gap 9 3 - 11 LAB CHEMISTRY METHOD 03/06/2024 7:08 AM [facility] Glucose 84 70 - 100 mg/dL LAB CHEMISTRY METHOD 03/06/2024 7:08 AM [facility] BUN 28(H) 5 - 25 mg/dL LAB CHEMISTRY METHOD 03/06/2024 7:08 AM [facility] Creatinine 2.21(H) 0.70 - 1.30 mg/dL LAB CHEMISTRY METHOD 03/06/2024 7:08 AM [facility] eGFR 36(L) >=60 mL/min/1. 73m2 LAB CHEMISTRY METHOD 03/06/2024 7:08 AM [facility] Comment:Calculation based on the??Chronic Kidney Disease Epidemiology Collaboration (CKD-EPI) equation refit??without adjustment for race. BUN/Creatinine Ratio 12.7 LAB CHEMISTRY METHOD 03/06/2024 7:08 AM [facility] Calcium 9.6 8.5 - 10.5 mg/dL LAB CHEMISTRY METHOD 03/06/2024 7:08 AM [facility] AST (SGOT) 13 10 - 42 unit/L LAB CHEMISTRY METHOD 03/06/2024 7:08 AM [facility] ALT (SGPT) 15 10 - 60 unit/L LAB CHEMISTRY METHOD 03/06/2024 7:08 AM [facility] Alkaline Phosphatase 124(H) 42 - 121 unit/L LAB CHEMISTRY METHOD 03/06/2024 7:08 AM [facility] Total Protein 6.3 6.0 - 8.0 g/dL LAB CHEMISTRY METHOD 03/06/2024 7:08 AM [facility] Albumin 3.0(L) 3.2 - 5.0 g/dL LAB CHEMISTRY METHOD 03/06/2024 7:08 AM [facility] Total Bilirubin 0.2 0.0 - 1.4 mg/dL LAB CHEMISTRY METHOD 03/06/2024 7:08 AM [facility] Blood Venous blood specimen / Unknown 03/06/2024 4:50 AM EST 03/06/2024 6:38 AM EST us Franki Gaona MD LAB BLOOD ORDERABLES Final Resul t [facility] [address] [place] [address], documented in this encounter Visit Diagnoses Diagnosis Schizoaffective disorder, unspecified documented in this encounter Care Teams Baby Formula Worker Relationship Specialty Start Date End Date Franki Gaona MD [address] [place] [address] [facility] [place] PCP - General Internal Medicine 06/04/24 documented as of this encounter
--- OUTSIDE RECORDS SUMMARY | 2024-08-06 17:14 | XMS_ITS | Encounter Summary ---
Author Organization [employer] [facility] Address [address] [place] [address] Care Team Providers Care Coiler Name Role Phone Franki Gaona MD Primary Care Provider [phone] Encounter Details Date Type Department Care Team (Late st Contact Info) Description 06/18/[address] [facility] - Main Lab [address] [place] [address] Franki Gaona MD [address] [place] [address] Dr [address] KACY Franz Chronic kidney disease, stage 3a (CMS/HCC); Other termite control representative (current) drug therapy Social History Tobacco Use [...] Priority Date/Time Associated Diagnosis Comments HEMOGLOBIN Routine 06/18/2024 7:10 AM EST Chronic kidney disease, stage 3a (CMS/HCC) Other longterm (current) drug therapy BASIC METABOLIC PANEL Routine 06/18/2024 7:10 AM EST Chronic kidney disease, stage 3a (CMS/HCC) Other longterm (current) drug therapy documented in this encounter Results * (ABNORMAL) Hemoglobin (06/18/2024 7:10 AM EST) Hemoglobin 11.2(L) 13.5 - 17.5 g/dL LAB HEMETOLOGY METHOD 06/18/2024 8:08 AM EST [facility] ([facility]) [facility] Blood Venous blood specimen / Unknown 06/18/2024 7:10 AM EST 06/18/2024 7:57 AM EST us Franki Gaona MD LAB BLOOD ORDERABLES Final Resul t [facility] [address] [place] [address], * (ABNORMAL) Basic metabolic panel (06/18/2024 7:10 AM EST) Sodium 141 133 - 145 mmol/L LAB CHEMISTRY METHOD 06/18/2024 8:28 AM [facility] Potassium 4.6 3.5 - 5.5 mmol/L LAB CHEMISTRY METHOD 06/18/2024 8:28 AM [facility] Chloride 111(H) 96 - 110 mmol/L LAB CHEMISTRY METHOD 06/18/2024 8:28 AM [facility] CO2 22 21 - 32 mmol/L LAB CHEMISTRY METHOD 06/18/2024 8:28 AM [facility] Anion Gap 8 3 - 11 LAB CHEMISTRY METHOD 06/18/2024 8:28 AM [facility] Glucose 165(H) 70 - 100 mg/dL LAB CHEMISTRY METHOD 06/18/2024 8:28 AM [facility] BUN 41(H) 5 - 25 mg/dL LAB CHEMISTRY METHOD 06/18/2024 8:28 AM [facility] Creatinine 2.53(H) 0.70 - 1.30 mg/dL LAB CHEMISTRY METHOD 06/18/2024 8:28 AM [facility] eGFR 31(L) >=60 mL/min/1. 73m2 LAB CHEMISTRY METHOD 06/18/2024 8:28 AM [facility] Comment:Calculation based on the??Chronic Kidney Disease Epidemiology Collaboration (CKD-EPI) equation refit??without adjustment for race. BUN/Creatinine Ratio 16.2 LAB CHEMISTRY METHOD 06/18/2024 8:28 AM [facility] Calcium 9.5 8.5 - 10.5 mg/dL LAB CHEMISTRY METHOD 06/18/2024 8:28 AM EST [facility] Blood Venous blood specimen / Unknown 06/18/2024 7:10 AM EST 06/18/2024 7:57 AM EST us Franki Gaona MD LAB BLOOD ORDERABLES Final Resul t [facility] [address] [place] [address], documented in this encounter Visit Diagnoses Diagnosis Chronic kidney disease, stage 3a (CMS/HCC) Other termite control representative (current) drug therapy documented in this encounter Care Teams Coiler Relationship Specialty Start Date End Date Franki Gaona MD [address] [place] [address] Dr [address] [place] PCP - General Internal Medicine 06/04/24 documented as of this encounter
--- OUTSIDE RECORDS SUMMARY | 2024-08-06 17:14 | XMS_ITS | Encounter Summary ---
Author Organization [facility] Address [address] [address] Phone Care Team Providers Care Clinical Exercise Physiologist Name Role Phone Franki Gaona DO Primary Care Provider [phone] Encounter Details Date Type Department Care Team (Late Contact Info) Description 06/28/2024 Office Communication [facility] [address] [place] [address] Charlene Hand ARNP [address] [address] Social History Tobacco Use Types [...] EDT Office Visit [facility] [address] [address] Charlene Hand ARNP [address] [address] documented as of this encounter Visit Diagnoses Not on filedocumented in this encounter Care Teams Clinical Exercise Physiologist Relationship Specialty Start Date End Date Franki Gaona DO [address] [place], [place] PCP - General Internal Medicine 01/17/23 documented as of this encounter
--- OUTSIDE RECORDS SUMMARY | 2024-08-06 17:14 | XMS_ITS | Encounter Summary ---
Author Organization [facility] Address [address] [place] [address] Care Team Providers Care Drill Doctor Name Role Phone Franki Gaona MD Primary Care Provider [phone] Encounter Details Date Type Department Care Team (Late st Contact Info) Description 06/25/2024 Lab Requisition [facility] - Main Lab [address] [place] [address] Franki Gaona MD [address] [place] [address] [address] [place], [place] Other long line teamster (current) drug therapy Social History Tobacco Use [...] Priority Date/Time Associated Diagnosis Comments HEMOGLOBIN Routine 06/25/2024 6:20 AM EST Other long line teamster (current) drug therapy documented in this encounter Results * (ABNORMAL) Hemoglobin (06/25/2024 6:20 AM EST) Hemoglobin 11.7(L) 13.5 - 17.5 g/dL LAB HEMETOLOGY METHOD 06/25/2024 7:05 AM EST [facility] Blood Venous blood specimen / Unknown 06/25/2024 6:20 AM EST 06/25/2024 7:03 AM EST us Franki Gaona MD LAB BLOOD ORDERABLES Final Resul t [facility] [address] [place] [address], documented in this encounter Visit Diagnoses Diagnosis Other retirement (current) drug therapy documented in this encounter Care Teams Drill Doctor Relationship Specialty Start Date End Date Franki Gaona MD [address] [place] [address] Dr [address] KACY Franz PCP - General Internal Medicine 06/04/24 documented as of this encounter
--- OUTSIDE RECORDS SUMMARY | 2024-08-06 17:14 | XMS_ITS | Encounter Summary ---
Author Organization [facility] Address [address] [place] [address] Care Team Providers Care Java Lead Developer Name Role Phone Franki Gaona MD Primary Care Provider [phone] Encounter Details Date Type Department Care Team (Late st Contact Info) Description 08/06/2024 Lab Requisition [facility] - Main Lab [address] [place] [address] Franki Gaona MD [address] [place] [address] [address] [place] Other middle or intermediate school principal (current) drug therapy Social History Tobacco Use [...] Priority Date/Time Associated Diagnosis Comments HEMOGLOBIN Routine 08/06/2024 4:30 AM EDT Other middle or intermediate school principal (current) drug therapy documented in this encounter Results * (ABNORMAL) Hemoglobin (08/06/2024 4:30 AM EDT) Hemoglobin 10.3(L) 13.5 - 17.5 g/dL LAB HEMETOLOGY METHOD 08/06/2024 6:05 AM EDT [facility] Blood Venous blood specimen / Unknown 08/06/2024 4:30 AM EDT 08/06/2024 6:00 AM EDT us Franki Gaona MD LAB BLOOD ORDERABLES Final Resul t [facility] [address] [place], [place] [address] [phone] documented in this encounter Visit Diagnoses Diagnosis Other half-way (current) drug therapy documented in this encounter Care Teams Java Lead Developer Relationship Specialty Start Date End Date Franki Gaona MD [address] [place] [address] Dr [address] KACY Franz PCP - General Internal Medicine 06/04/24 documented as of this encounter
--- OUTSIDE RECORDS SUMMARY | 2024-08-06 17:14 | XMS_ITS | Encounter Summary ---
Author Organization [facility] Address [address] [place] [address] Care Team Providers Care [place] Weir Name Role Phone Franki Gaona MD Primary Care Provider [phone] Encounter Details Date Type Department Care Team (Late st Contact Info) Description 06/11/2024 Lab Requisition [facility] - Main Lab [address] [place] [address] Franki Gaona MD [address] [place] [address] [address] KACY Franz Hyperlipidemia, unspecified Social History Tobacco Use Types Packs/Day [...] Procedure Name Priority Date/Time Associated Diagnosis Comments LIPID PANEL WITH REFLEX TO DIRECT LDL Routine 06/11/2024 4:26 PM EST Hyperlipidemia, unspecified HEMOGLOBIN Routine 06/11/2024 4:26 PM EST Hyperlipidemia, unspecified documented in this encounter Results * (ABNORMAL) Hemoglobin (06/11/2024 4:26 PM EST) Hemoglobin 10.9(L) 13.5 - 17.5 g/dL LAB HEMETOLOGY METHOD 06/11/2024 5:49 PM EST [facility] ([facility] Blood Venous blood specimen / Unknown 06/11/2024 4:26 PM EST 06/11/2024 5:33 PM EST us Franki Gaona MD LAB BLOOD ORDERABLES Final Resul t [facility] [address] [place] [address], [place] [phone] * (ABNORMAL) Lipid panel with reflex to direct LDL (06/11/2024 4:26 PM EST) Cholesterol 152 0 - 200 mg/dL LAB CHEMISTRY METHOD 06/11/2024 6:39 PM EST [facility] Triglycerides 192(H) 0 - 150 mg/dL LAB CHEMISTRY METHOD 06/11/2024 6:39 PM EST [facility] HDL 42 >=40 mg/dL LAB CHEMISTRY METHOD 06/11/2024 6:39 PM EST [facility] LDL Calculated 72 0 - 100 mg/dL LAB CHEMISTRY METHOD 06/11/2024 6:39 PM EST [facility] VLDL Cholesterol Bryant 38.4 mg/dL LAB CHEMISTRY METHOD 06/11/2024 6:39 PM EST [facility] Non HDL Chol. (LDL+VLDL) 110 <145 mg/dL LAB CHEMISTRY METHOD 06/11/2024 6:39 PM EST [facility] Chol/HDL Ratio 3.6 0.0 - 4.4 LAB CHEMISTRY METHOD 06/11/2024 6:39 PM EST [facility] Blood Venous blood specimen / Unknown 06/11/2024 4:26 PM EST 06/11/2024 5:33 PM EST us Franki Gaona MD LAB BLOOD ORDERABLES Final Resul t [facility] [address] [place] [address], [place] [phone] documented in this encounter Visit Diagnoses Diagnosis Hyperlipidemia, unspecified documented in this encounter Care Teams [place] Relationship Specialty Start Date End Date Franki Gaona MD [address] [place] [address] [address] [place] [address] PCP - General Internal Medicine 06/04/24 documented as of this encounter
--- OUTSIDE RECORDS SUMMARY | 2024-08-06 17:14 | XMS_ITS | Encounter Summary ---
Author Organization [employer] Address [address] [place] [address] Care Team Providers Care Hotel Housekeeper Name Role Phone Franki Gaona MD Primary Care Provider [phone] Encounter Details Date Type Department Care Team (Late st Contact Info) Description 04/17/2024 Lab Requisition [facility] - Main Lab [address] [facility] [place] [address] Franki Gaona MD [address] [place] [address] Dr [address] [place] Dilated cardiomyopathy (CMS/HCC); Essential (primary) hypertension; Chronic [...] LAB CHEMISTRY METHOD 04/17/2024 8:50 AM EST [facility] Prot/Creat, Ur 8.59(H) <=0.20 mg/mg creat LAB CHEMISTRY METHOD 04/17/2024 8:50 AM EST [facility] Creatinine, Urine 17.0 mg/dL LAB CHEMISTRY METHOD 04/17/2024 8:50 AM EST [facility] Urine Urine specimen obtained by clean catch procedure / Unknown 04/17/2024 7:22 AM EST 04/17/2024 8:20 AM EST us Franki Gaona MD LAB URINE ORDERABLES Final Resul t [facility] [address] [place] [address], [place] [phone] * (ABNORMAL) Microalbumin creatinine urine ratio (04/17/2024 7:22 AM EST) Creatinine, Urine 17.0 mg/dL LAB CHEMISTRY METHOD 04/17/2024 9:22 AM EST [facility] Microalb, Ur 983.0(H) 0.0 - 29.0 mg/L LAB CHEMISTRY METHOD 04/17/2024 9:22 AM EST [facility] Microalb/Crea t Ratio 5,782(H) <30 mg/g creat LAB CHEMISTRY METHOD 04/17/2024 9:22 AM EST [facility] Urine Urine specimen obtained by clean catch procedure / Unknown 04/17/2024 7:22 AM EST 04/17/2024 8:20 AM EST us Franki Gaona MD LAB URINE ORDERABLES Final Resul t [facility] [address] [place] [address], * (ABNORMAL) CBC auto differential (04/17/2024 7:22 AM EST) WBC 5.8 4.8 - 10.8 K/mcL LAB HEMETOLOGY METHOD 04/17/2024 8:27 AM [facility] RBC 3.30(L) 4.50 - 5.50 M/mcL LAB HEMETOLOGY METHOD 04/17/2024 8:27 AM [facility] Hemoglobin 8.7(L) 13.5 - 17.5 g/dL LAB HEMETOLOGY METHOD 04/17/2024 8:27 AM [facility] Hematocrit 27.3(L) 42.0 - 54.0 % LAB HEMETOLOGY METHOD 04/17/2024 8:27 AM [facility] MCV 82.5 79.0 - 98.0 FL LAB HEMETOLOGY METHOD 04/17/2024 8:27 AM [facility] MCH 26.3(L) 27.0 - 32.0 pcg LAB HEMETOLOGY METHOD 04/17/2024 8:27 AM [facility] MCHC 31.9(L) 32.0 - 37.0 g/dL LAB HEMETOLOGY METHOD 04/17/2024 8:27 AM [facility] RDW 15.0 11.0 - 15.0 % LAB HEMETOLOGY METHOD 04/17/2024 8:27 AM [facility] Platelets 288 130 - 400 K/mcL LAB HEMETOLOGY METHOD 04/17/2024 8:27 AM [facility] MPV 11.4(H) 7.0 - 11.0 FL LAB HEMETOLOGY METHOD 04/17/2024 8:27 AM [facility] NRBC 0.0 <1.0 % LAB HEMETOLOGY METHOD 04/17/2024 8:27 AM [facility] NRBC Absolute 0.00 <0.10 K/mcL LAB HEMETOLOGY METHOD 04/17/2024 8:27 AM [facility] Neutrophils Relative 68.0 % LAB HEMETOLOGY METHOD 04/17/2024 8:27 AM [facility] Lymphocytes Relative 19.2 % LAB HEMETOLOGY METHOD 04/17/2024 8:27 AM [facility] Monocytes Relative 7.1 % LAB HEMETOLOGY METHOD 04/17/2024 8:27 AM [facility] Eosinophils Relative 5.2 % LAB HEMETOLOGY METHOD 04/17/2024 8:27 AM [facility] Basophils Relative 0.3 % LAB HEMETOLOGY METHOD 04/17/2024 8:27 AM [facility] Immature Granulocytes Relative 0.2 % LAB HEMETOLOGY METHOD 04/17/2024 8:27 AM [facility] Neutrophils Absolute 3.93 1.50 - 7.00 K/mcL LAB HEMETOLOGY METHOD 04/17/2024 8:27 AM [facility] Lymphocytes Absolute 1.11 1.00 - 5.00 K/mcL LAB HEMETOLOGY METHOD 04/17/2024 8:27 AM [facility] Monocytes Absolute 0.41 0.20 - 1.00 K/mcL LAB HEMETOLOGY METHOD 04/17/2024 8:27 AM [facility] Eosinophils Absolute 0.30 0.00 - 0.50 K/mcL LAB HEMETOLOGY METHOD 04/17/2024 8:27 AM [facility] Basophils Absolute 0.02 0.00 - 0.20 K/mcL LAB HEMETOLOGY METHOD 04/17/2024 8:27 AM [facility] Immature Granulocytes Absolute 0.01 0.00 - 0.03 K/mcL LAB HEMETOLOGY METHOD 04/17/2024 8:27 AM EST [facility] Blood Venous blood specimen / Unknown 04/17/2024 7:22 AM EST 04/17/2024 8:11 AM EST us Franki Gaona MD LAB BLOOD ORDERABLES Final Resul t [facility] [address] [place] [address], documented in this encounter Visit Diagnoses Diagnosis Dilated cardiomyopathy (CMS/HCC) Other primary cardiomyopathies Essential (primary) hypertension Unspecified essential hypertension Chronic kidney disease, stage 3a (CMS/HCC) documented in this encounter Care Teams Hotel Housekeeper Relationship Specialty Start Date End Date Franki Gaona MD [address] [place], [place] PCP - General Internal Medicine 06/04/24 documented as of this encounter
--- OUTSIDE RECORDS SUMMARY | 2024-08-06 17:14 | XMS_ITS | Encounter Summary ---
Author Organization [facility] Address [address] [place] [address] Care Team Providers Care [employer] Refractory Tile Repairer Name Role Phone Franki Gaona MD Primary Care Provider [phone] Encounter Details Date Type Department Care Team (Late st Contact Info) Description 05/08/2024 Lab Requisition [facility] - Main Lab [address] [place] [address] Franki Gaona MD [address] [place] [address] [address] KACY López Vitamin D deficiency, unspecified; Other symptoms and [...] LAB CHEMISTRY METHOD 05/09/2024 7:34 AM EST [facility] eGFR 30(L) >=60 mL/min/1. 73m2 LAB CHEMISTRY METHOD 05/09/2024 7:34 AM EST [facility] Comment:Calculation based on the??Chronic Kidney Disease Epidemiology Collaboration (CKD-EPI) equation refit??without adjustment for race. Blood Venous blood specimen / Unknown 05/08/2024 6:15 AM EST 05/08/2024 6:49 AM EST us Franki Gaona MD LAB BLOOD ORDERABLES Final Resul t Performing Organization Address [facility]/ZIP Co de Phone Number [facility] [address] [place] [address], [place] [phone] * (ABNORMAL) BUN (05/08/2024 6:15 AM EST) BUN 38(H) 5 - 25 mg/dL LAB CHEMISTRY METHOD 05/09/2024 7:34 AM [facility] Blood Venous blood specimen / Unknown 05/08/2024 6:15 AM EST 05/08/2024 6:49 AM EST us Franki Gaona MD LAB BLOOD ORDERABLES Final Resul t Performing Organization Address [facility]/ZIP Co de Phone Number [facility] [address] [place] [address], [place] [phone] * (ABNORMAL) Electrolyte panel (05/08/2024 6:15 AM EST) Sodium 139 133 - 145 mmol/L LAB CHEMISTRY METHOD 05/09/2024 7:34 AM [facility] Potassium 4.1 3.5 - 5.5 mmol/L LAB CHEMISTRY METHOD 05/09/2024 7:34 AM [facility] Chloride 112(H) 96 - 110 mmol/L LAB CHEMISTRY METHOD 05/09/2024 7:34 AM [facility] CO2 19(L) 21 - 32 mmol/L LAB CHEMISTRY METHOD 05/09/2024 7:34 AM EST [facility] Anion Gap 8 3 - 11 LAB CHEMISTRY METHOD 05/09/2024 7:34 AM EST [facility] Blood Venous blood specimen / Unknown 05/08/2024 6:15 AM EST 05/08/2024 6:49 AM EST us Franki Gaona MD LAB BLOOD ORDERABLES Final Resul t Performing Organization Address [facility]/ZIP Co de Phone Number [facility] [address] [place] [address], [place] [phone] * (ABNORMAL) Vitamin D 25 hydroxy (05/08/2024 6:15 AM EST) Vit D, 25-Hydroxy 19.5(L) 30.0 - 80.0 ng/mL LAB CHEMISTRY METHOD 05/08/2024 7:22 AM EST [facility] Blood Venous blood specimen / Unknown 05/08/2024 6:15 AM EST 05/08/2024 6:49 AM EST us Franki Gaona MD LAB BLOOD ORDERABLES Final Resul t Performing Organization Address [facility]/ZIP Co de Phone Number [facility] [address] [place] [address], [place] [phone] documented in this encounter Visit Diagnoses Diagnosis Vitamin D deficiency, unspecified Other symptoms and signs concerning food and fluid intake documented in this encounter Care Teams [employer] T[employer] Repairer Relationship Specialty Start Date End Date Franki Gaona MD [address]ópez [place] PCP - General Internal Medicine 06/04/24 documented as of this encounter
--- OUTSIDE RECORDS SUMMARY | 2024-08-06 17:14 | XMS_ITS | Clinical Summary ---
Author Organization [address] Address [address] [place] [address] Phone Care Team Providers Care Campaign Associate Name Role Phone Franki Gaona MD Primary Care Provider [phone] Encounters Date Type Department Care Team Description 08/06/2024 Lab Requisition [facility] [address] [place] [phone] Franki Gaona MD Other local intermodal truck driver (current) drug therapy 07/30/2024 Lab Requisition [facility] [address] [place] [phone] Franki Gaona MD Other local intermodal truck driver (current) drug therapy; Other complications following infusion, transfusion and therapeutic injection, initial encounter 07/27/2024 Lab Requisition [facility] [address] [place] [address] Franki Gaona MD Type 2 diabetes mellitus without complications ([facility]) 07/23/2024 Lab Requisition [facility] [address] [place] [address] Franki Gaona MD Other local intermodal truck driver (current) drug therapy; Essential (primary) hypertension; Anemia, unspecified 07/16/2024 Lab Requisition [facility] [address] [place] [address] Franki Gaona MD Essential (primary) hypertension; Other local intermodal truck driver (current) drug therapy 07/09/2024 Lab Requisition [facility] [address] [place] [phone] Franki Gaona MD Other [facility] (current) drug therapy 07/02/2024 Lab Requisition [facility] [address] [place] [phone] Franki Gaona MD Other [facility] (current) drug therapy 06/29/2024 Lab Requisition [facility] [address] [place] [address] Franki Gaona MD Encounter for therapeutic drug level monitoring 06/25/2024 Lab Requisition [facility] [address] [place] [address] Franki Gaona MD Other local intermodal truck driver (current) drug therapy 06/18/2024 Lab Requisition [facility] [address] [place] [address] Franki Gaona MD Chronic kidney disease, stage 3a (CMS/HCC); Other local intermodal truck driver (current) drug therapy 06/11/2024 Lab Requisition [facility] [address] [place] [address] Franki Gaona MD Hyperlipidemia, unspecified 06/04/2024 Lab Requisition [facility] [address] [place] [address] Franki Gaona MD Other local intermodal truck driver (current) drug therapy 05/28/2024 Lab Requisition [facility] [address] [place] [address] Franki Gaona MD Other [facility] (current) drug therapy 05/21/2024 Lab Requisition [facility] [address] [place] [address] Franki Gaona MD Iron deficiency anemia, unspecified 05/16/2024 Lab Requisition [facility] [address] [place] [address] Franki Gaona MD Chronic kidney disease, stage 3 unspecified (CMS/HCC); Iron deficiency anemia, unspecified 05/08/2024 Lab Requisition [facility] [address] [place] [phone] Franki Gaona MD Vitamin D deficiency, unspecified; Other symptoms and signs concerning food and fluid intake from Last 3 Months Social History Tobacco Use Types Packs/Day Years Used Date Smoking Tobacco: Never Assessed Sex and Gender Information Value Date Recorded Sex Assigned at Not on file Legal Sex Male 9:45 AM EST Gender Identity Not on file Sexual Orientation Not on file Plan of Treatment Health Maintenance Due Date Last Done Comments Diabetes: Annual Foot Exam 1986 Diabetes: Annual Retina Eye Exam 1986 DTaP,Tdap,and Td Vaccines (1 - Tdap) 08/30/1995 Hepatitis B Vaccines (1 of 3 - 19+ 3-dose series) 08/30/1995 Pneumococcal Vaccine: Pediatrics (0 to 5 Years) and At-Risk Patients (6 to 64 Years) (1 of 2 - PCV) 08/30/1995 Colorectal Cancer Screening: Colonoscopy 04/04/2022 Depression Screening 04/04/2022 HIV Screening 04/04/2022 Hepatitis C Screening 04/04/2022 Medicare Annual Wellness Visit 04/04/2022 Social Influencers of Health Screening 04/04/2022 COVID-19 Vaccine ( season) 2024 Influenza Vaccine (Season Ended) 2024 Diabetes: Blood Sugar Control Test (HGBA1C) 01/27/2025 07/27/2024, 04/30/2024 Diabetes: Annual Urine Albumin-Creatinine Ratio (uACR) 04/17/2025 04/17/2024 Diabetes: Annual GFR (Glomerular Filtration Rate) 07/16/2025 07/16/2024, 06/18/2024, 05/08/2024, Additional history exists Hypertension/CHF/CAD Annual BMP Blood Test 07/16/2025 07/16/2024, 06/18/2024, 05/08/2024, Additional history exists Cholesterol Screening (Lipid Panel) 06/11/2029 06/11/2024 HIB Vaccines Aged Out No longer eligi [...] patient's age to complete this topic Meningococcal B Vaccine Aged Out No l onger eligible based on patient's age to complete this topic RSV Immunization Patients Under 20 months Aged Out No longer eligible based on patient's age to complete this topic Varicella Vaccines Aged Out No longer eligible based on patient's age to complete this topic Procedures Procedure Name Priority Date/Time Associated Diagnosis Comments HEMOGLOBIN Routine 08/06/2024 4:30 AM EDT Other [facility] (current) drug therapy IRON AND TIBC Routine 07/30/2024 4:42 AM EDT Other [facility] (current) drug therapy Other complications following infusion, transfusion and therapeutic injection, initial encounter COMPLETE BLOOD COUNT Routine 07/30/2024 4:42 AM EDT Other [facility] (current) drug therapy Other complications following infusion, transfusion and therapeutic injection, initial encounter HEMOGLOBIN A1C Routine 07/27/2024 5:35 AM EDT Type 2 diabetes mellitus without complications LAVENDER - EDTA Routine 07/23/2024 4:44 AM EDT Other local intermodal truck driver (current) drug therapy Essential (primary) hypertension Anemia, unspecified CBC WITH AUTO DIFFERENTIAL Routine 07/23/2024 4:44 AM EDT Other local intermodal truck driver (current) drug therapy Essential (primary) hypertension Anemia, unspecified IRON AND TIBC Routine 07/23/2024 4:44 AM EDT Other [facility] (current) drug therapy Essential (primary) hypertension Anemia, unspecified CBC AND DIFFERENTIAL Routine 07/23/2024 4:44 AM EDT Other local intermodal truck driver (current) drug therapy Essential (primary) hypertension Anemia, unspecified COMPREHENSIVE METABOLIC PANEL Routine 07/16/2024 4:45 AM EDT Essential (primary) hypertension Other local intermodal truck driver (current) drug therapy HEMOGLOBIN Routine 07/16/2024 4:45 AM EDT Essential (primary) hypertension Other local intermodal truck driver (current) drug therapy LAVENDER - EDTA Routine 07/09/2024 6:45 AM EDT Other local intermodal truck driver (current) drug therapy CBC WITH AUTO DIFFERENTIAL Routine 07/09/2024 6:45 AM EDT Other local intermodal truck driver (current) drug therapy HEMOGLOBIN Routine 07/09/2024 6:45 AM EDT Other local intermodal truck driver (current) drug therapy CBC AND DIFFERENTIAL Routine 07/09/2024 6:45 AM EDT Other [facility] (current) drug therapy HEMOGLOBIN Routine 07/02/2024 7:17 AM EST Other [facility] (current) drug therapy CBC WITH AUTO DIFFERENTIAL Routine 06/29/2024 7:10 AM EST Encounter for therapeutic drug level monitoring CBC AND DIFFERENTIAL Routine 06/29/2024 7:10 AM EST Encounter for therapeutic drug level monitoring HEMOGLOBIN Routine 06/25/2024 6:20 AM EST Other local intermodal truck driver (current) drug therapy HEMOGLOBIN Routine 06/18/2024 7:10 AM EST Chronic kidney disease, stage 3a (CMS/HCC) Other local intermodal truck driver (current) drug therapy BASIC METABOLIC PANEL Routine 06/18/2024 7:10 AM EST Chronic kidney disease, stage 3a (CMS/HCC) Other local intermodal truck driver (current) drug therapy HEMOGLOBIN Routine 06/11/2024 4:26 PM EST Hyperlipidemia, unspecified LIPID PANEL WITH REFLEX TO DIRECT LDL Routine 06/11/2024 4:26 PM EST Hyperlipidemia, unspecified HEMOGLOBIN Routine 06/04/2024 6:31 AM EST Other [facility] (current) drug therapy CBC WITH AUTO DIFFERENTIAL Routine 05/28/2024 7:08 AM EST Other local intermodal truck driver (current) drug therapy HEMOGLOBIN Routine 05/28/2024 7:08 AM EST Other local intermodal truck driver (current) drug therapy CBC AND DIFFERENTIAL Routine 05/28/2024 7:08 AM EST Other local intermodal truck driver (current) drug therapy HEMOGLOBIN Routine 05/21/2024 6:34 [...] 6:15 AM EST Vitamin D deficiency, unspecified MICROALBUMIN CREATININE URINE RATIO Routine 04/17/2024 7:22 AM EST Dilated cardiomyopathy (CMS/HCC) Essential (primary) hypertension Chronic kidney disease, stage 3a (CMS/HCC) from Last 3 Months or Most Recently Relevant to Health Maintenance Results * (ABNORMAL) Hemoglobin (08/06/2024 4:30 AM EDT) Only the most recent of10 resultswithin the time period is included. Hemoglobin 10.3(L) 13.5 - 17.5 g/dL LAB HEMETOLOGY METHOD 08/06/2024 6:05 AM EDT [facility] Blood Venous blood specimen / Unknown 08/06/2024 4:30 AM EDT 08/06/2024 6:00 AM EDT us Franki Gaona MD LAB BLOOD ORDERABLES Final Resul t Performing Organization Address [facility] Co de Phone Number [facility] [address] [place] [address], [place] [phone] * Iron and TIBC (07/30/2024 4:42 AM EDT) Only the most recent of3 resultswithin the time period is included. Iron 62 50 - 160 mcg/dL LAB CHEMISTRY METHOD 07/30/2024 5:55 AM EDT [facility] TIBC 307 250 - 450 mcg/dL LAB CHEMISTRY METHOD 07/30/2024 5:55 AM EDT [facility] Iron Saturation 20 20 - 50 % LAB CHEMISTRY METHOD 07/30/2024 5:55 AM EDT [facility] Blood Venous blood specimen / Unknown 07/30/2024 4:42 AM EDT 07/30/2024 5:26 AM EDT us Franki Gaona MD LAB BLOOD ORDERABLES Final Resul t Performing Organization Address [facility]/ZIP Co de Phone Number [facility] [address] [place] [address], [place] [phone] * (ABNORMAL) Complete blood count (07/30/2024 4:42 AM EDT) Only the most recent of2 resultswithin the time period is included. WBC 5.8 4.8 - 10.8 K/[facility] LAB HEMETOLOGY METHOD 07/30/2024 5:36 AM [facility] RBC 3.80(L) 4.50 - 5.50 M/mcL LAB HEMETOLOGY METHOD 07/30/2024 5:36 AM [facility] Hemoglobin 9.9(L) 13.5 - 17.5 g/dL LAB HEMETOLOGY METHOD 07/30/2024 5:36 AM [facility] Hematocrit 31.5(L) 42.0 - 54.0 % LAB HEMETOLOGY METHOD 07/30/2024 5:36 AM [facility] MCV 83.1 79.0 - 98.0 FL LAB HEMETOLOGY METHOD 07/30/2024 5:36 AM [facility] MCH 26.1(L) 27.0 - 32.0 pcg LAB HEMETOLOGY METHOD 07/30/2024 5:36 AM [facility] MCHC 31.4(L) 32.0 - 37.0 g/dL LAB HEMETOLOGY METHOD 07/30/2024 5:36 AM [facility] RDW 17.0(H) 11.0 - 15.0 % LAB HEMETOLOGY METHOD 07/30/2024 5:36 AM [facility] Platelets 201 130 - 400 K/mcL LAB HEMETOLOGY METHOD 07/30/2024 5:36 AM [facility] MPV 12.2(H) 7.0 - 11.0 FL LAB HEMETOLOGY METHOD 07/30/2024 5:36 AM [facility] NRBC 0.3 <1.0 % LAB HEMETOLOGY METHOD 07/30/2024 5:36 AM [facility] NRBC Absolute 0.02 <0.10 K/mcL LAB HEMETOLOGY METHOD 07/30/2024 5:36 AM [facility] Blood Venous blood specimen / Unknown 07/30/2024 4:42 AM EDT 07/30/2024 5:26 AM EDT us Franki Gaona MD LAB BLOOD ORDERABLES Final Resul t Performing Organization Address [facility]/ZIP Co de Phone Number [facility] [address] [place] [address], [place] [phone] * (ABNORMAL) Hemoglobin A1c (07/27/2024 5:35 AM EDT) Pathologist [facility] Hemoglobin A1C 7.9(H) <6.5 % LAB CHEMISTRY METHOD 07/27/2024 10:30 AM EDT [facility] Mean Bld Glu Estim. 180 mg/dL LAB CHEMISTRY METHOD 07/27/2024 10:30 AM EDT [facility] Blood Venous blood specimen / Unknown 07/27/2024 5:35 AM EDT 07/27/2024 6:52 AM EDT us Franki Gaona MD LAB BLOOD ORDERABLES Final Resul t Performing Organization Address [facility]/ZIP Co de Phone Number [facility] [address] [place] [address], [place] [phone] * (ABNORMAL) CBC auto differential (07/23/2024 4:44 AM EDT) Only the most recent of4 resultswithin the time period is included. Pathologist [facility] WBC 6.3 4.8 - 10.8 K/mcL LAB HEMETOLOGY METHOD 07/23/2024 6:06 AM EDT [facility] RBC 3.90(L) 4.50 - 5.50 M/[facility] LAB HEMETOLOGY METHOD 07/23/2024 6:06 AM EDT [facility] Hemoglobin 9.9(L) 13.5 - 17.5 g/dL LAB HEMETOLOGY METHOD 07/23/2024 6:06 AM [facility] Hematocrit 31.0(L) 42.0 - 54.0 % LAB HEMETOLOGY METHOD 07/23/2024 6:06 AM [facility] MCV 80.3 79.0 - 98.0 FL LAB HEMETOLOGY METHOD 07/23/2024 6:06 AM [facility] MCH 25.6(L) 27.0 - 32.0 pcg LAB HEMETOLOGY METHOD 07/23/2024 6:06 AM [facility] MCHC 31.9(L) 32.0 - 37.0 g/dL LAB HEMETOLOGY METHOD 07/23/2024 6:06 AM [facility] RDW 15.6(H) 11.0 - 15.0 % LAB HEMETOLOGY METHOD 07/23/2024 6:06 AM [facility] Platelets 186 130 - 400 K/mcL LAB HEMETOLOGY METHOD 07/23/2024 6:06 AM [facility] MPV 12.5(H) 7.0 - 11.0 FL LAB HEMETOLOGY METHOD 07/23/2024 6:06 AM [facility] NRBC 0.0 <1.0 % LAB HEMETOLOGY METHOD 07/23/2024 6:06 AM [facility] NRBC Absolute 0.00 <0.10 K/mcL LAB HEMETOLOGY METHOD 07/23/2024 6:06 AM [facility] Neutrophils Relative 53.9 % LAB HEMETOLOGY METHOD 07/23/2024 6:06 AM [facility] Lymphocytes Relative 28.5 % LAB HEMETOLOGY METHOD 07/23/2024 6:06 AM [facility] Monocytes Relative 10.2 % LAB HEMETOLOGY METHOD 07/23/2024 6:06 AM [facility] Eosinophils Relative 6.7 % LAB HEMETOLOGY METHOD 07/23/2024 6:06 AM EDT [facility] Basophils Relative 0.5 % LAB HEMETOLOGY METHOD 07/23/2024 6:[facility] Immature Granulocytes Relative 0.2 % LAB HEMETOLOGY METHOD 07/23/2024 6:06 AM EDT [facility] Neutrophils Absolute 3.38 1.50 - 7.00 K/mcL LAB HEMETOLOGY METHOD 07/23/2024 6:06 AM EDT [facility] Lymphocytes Absolute 1.79 1.00 - 5.00 K/mcL LAB HEMETOLOGY METHOD 07/23/2024 6:06 AM EDT [facility] Monocytes Absolute 0.64 0.20 - 1.00 K/mcL LAB HEMETOLOGY METHOD 07/23/2024 6:06 AM EDT [facility] Eosinophils Absolute 0.42 0.00 - 0.50 K/mcL LAB HEMETOLOGY METHOD 07/23/2024 6:06 AM EDT [facility] Basophils Absolute 0.03 0.00 - 0.20 K/mcL LAB HEMETOLOGY METHOD 07/23/2024 6:[facility] Immature Granulocytes Absolute 0.01 0.00 - 0.03 K/mcL LAB HEMETOLOGY METHOD 07/23/2024 6:06 AM EDT [facility] Blood Venous blood specimen / Unknown 07/23/2024 4:44 AM EDT 07/23/2024 5:23 AM EDT us Franki Gaona MD LAB BLOOD ORDERABLES Final Resul t [facility] [address] [place] [address], * Lavender tube (07/23/2024 4:44 AM EDT) Only the most recent of2 resultswithin the time period is included. Pathologist [facility] Extra Tube Hold for add-ons. 07/23/2024 7:01 PM EDT [facility] Comment:Auto resulted. Blood Venous blood specimen / Unknown 07/23/2024 4:44 AM EDT 07/23/2024 6:18 AM EDT us Franki Gaona MD LAB BLOOD ORDERABLES Final Resul t [facility] [address] [place] [address], [place] [phone] * (ABNORMAL) Comprehensive metabolic panel (07/16/2024 4:45 AM EDT) [facility] Sodium 139 133 - 145 mmol/L LAB CHEMISTRY METHOD 07/16/2024 5:57 AM [facility] Potassium 4.2 3.5 - 5.5 mmol/L LAB CHEMISTRY METHOD 07/16/2024 5:57 AM [facility] Chloride 109 96 - 110 mmol/L LAB CHEMISTRY METHOD 07/16/2024 5:57 AM [facility] CO2 23 21 - 32 mmol/L LAB CHEMISTRY METHOD 07/16/2024 5:57 AM [facility] Anion Gap 7 3 - 11 LAB CHEMISTRY METHOD 07/16/2024 5:57 AM [facility] Glucose 121(H) 70 - 100 mg/dL LAB CHEMISTRY METHOD 07/16/2024 5:57 AM [facility] BUN 46(H) 5 - 25 mg/dL LAB CHEMISTRY METHOD 07/16/2024 5:57 AM [facility] Creatinine 2.59(H) 0.70 - 1.30 mg/dL LAB CHEMISTRY METHOD 07/16/2024 5:57 AM [facility] eGFR 30(L) >=60 mL/min/1. 73m2 LAB CHEMISTRY METHOD 07/16/2024 5:57 AM [facility] Comment:Calculation based on the??Chronic Kidney Disease Epidemiology Collaboration (CKD-EPI) equation refit??without adjustment for race. BUN/Creatinine Ratio 17.8 LAB CHEMISTRY METHOD 07/16/2024 5:57 AM [facility] Calcium 9.2 8.5 - 10.5 mg/dL LAB CHEMISTRY METHOD 07/16/2024 5:57 AM [facility] AST (SGOT) 11 10 - 42 unit/L LAB CHEMISTRY METHOD 07/16/2024 5:57 AM [facility] ALT (SGPT) 17 10 - 60 unit/L LAB CHEMISTRY METHOD 07/16/2024 5:57 AM [facility] Alkaline Phosphatase 141(H) 42 - 121 unit/L LAB CHEMISTRY METHOD 07/16/2024 5:57 AM [facility] Total Protein 7.0 6.0 - 8.0 g/dL LAB CHEMISTRY METHOD 07/16/2024 5:57 AM [facility] Albumin 3.2 3.2 - 5.0 g/dL LAB CHEMISTRY METHOD 07/16/2024 5:57 AM [facility] Total Bilirubin 0.3 0.0 - 1.4 mg/dL LAB CHEMISTRY METHOD 07/16/2024 5:57 AM [facility] Blood Venous blood specimen / Unknown 07/16/2024 4:45 AM EDT 07/16/2024 5:27 AM EDT us Franki Gaona MD LAB BLOOD ORDERABLES Final Resul t [facility] [address] [place] [address], * (ABNORMAL) Basic metabolic panel (06/18/2024 7:10 AM EST) Sodium 141 133 - 145 mmol/L LAB CHEMISTRY METHOD 06/18/2024 8:28 AM [facility] Potassium 4.6 3.5 - 5.5 mmol/L LAB CHEMISTRY METHOD 06/18/2024 8:28 AM [facility] Chloride 111(H) 96 - 110 mmol/L LAB CHEMISTRY METHOD 06/18/2024 8:28 AM [facility] CO2 22 21 - 32 mmol/L LAB CHEMISTRY METHOD 06/18/2024 8:28 AM [facility] Anion Gap 8 3 - 11 LAB CHEMISTRY METHOD 06/18/2024 8:28 AM [facility] Glucose 165(H) 70 - 100 mg/dL LAB CHEMISTRY METHOD 06/18/2024 8:28 AM [facility] BUN 41(H) 5 - 25 mg/dL LAB CHEMISTRY METHOD 06/18/2024 8:28 AM [facility] Creatinine 2.53(H) 0.70 - 1.30 mg/dL LAB CHEMISTRY METHOD 06/18/2024 8:28 AM [facility] eGFR 31(L) >=60 mL/min/1. 73m2 LAB CHEMISTRY METHOD 06/18/2024 8:28 AM [facility] Comment:Calculation based on the??Chronic Kidney Disease Epidemiology Collaboration (CKD-EPI) equation refit??without adjustment for race. BUN/Creatinine Ratio 16.2 LAB CHEMISTRY METHOD 06/18/2024 8:28 AM [facility] Calcium 9.5 8.5 - 10.5 mg/dL LAB CHEMISTRY METHOD 06/18/2024 8:28 AM [facility] Blood Venous blood specimen / Unknown 06/18/2024 7:10 AM EST 06/18/2024 7:57 AM EST us Franki Gaona MD LAB BLOOD ORDERABLES Final Resul t [facility] [address] [place] [address], [place] [phone] * (ABNORMAL) Lipid panel with reflex to direct LDL (06/11/2024 4:26 PM EST) Cholesterol 152 0 - 200 mg/dL LAB CHEMISTRY METHOD 06/11/2024 6:39 PM EST [facility] Triglycerides 192(H) 0 - 150 mg/dL LAB CHEMISTRY METHOD 06/11/2024 6:39 PM EST [facility] HDL 42 >=40 mg/dL LAB CHEMISTRY METHOD 06/11/2024 6:39 PM EST [facility] LDL Calculated 72 0 - 100 mg/dL LAB CHEMISTRY METHOD 06/11/2024 6:39 PM EST [facility] VLDL Cholesterol Bryant 38.4 mg/dL LAB CHEMISTRY METHOD 06/11/2024 6:39 PM EST [facility] Non HDL Chol. (LDL+VLDL) 110 <145 mg/dL LAB CHEMISTRY METHOD 06/11/2024 6:39 PM EST [facility] Chol/HDL Ratio 3.6 0.0 - 4.4 LAB CHEMISTRY METHOD 06/11/2024 6:39 PM EST [facility] Blood Venous blood specimen / Unknown 06/11/2024 4:26 PM EST 06/11/2024 5:33 PM EST Franki Gaona MD LAB BLOOD ORDERABLES Final Resul t Performing Organization Address [facility]/ZIP Co de Phone Number [facility] [address] [place] [address], [place] [phone] * Ferritin (05/16/2024 6:15 AM EST) Ferritin 142 26 - 388 ng/mL LAB CHEMISTRY METHOD 05/16/2024 8:01 AM EST [facility] Blood Venous blood specimen / Unknown 05/16/2024 6:15 AM EST 05/16/2024 7:28 AM EST us Franki Gaona MD LAB BLOOD ORDERABLES Final Resul t Performing Organization Address [facility]/ZIP Co de Phone Number [facility] [address] [place] [address], [place] [phone] * (ABNORMAL) Creatinine (05/08/2024 6:15 AM EST) Creatinine 2.58(H) 0.70 - 1.30 mg/dL LAB CHEMISTRY METHOD 05/09/2024 7:34 AM EST [facility] eGFR 30(L) >=60 mL/min/1. 73m2 LAB CHEMISTRY METHOD 05/09/2024 7:34 AM EST [facility] Comment:Calculation based on the??Chronic Kidney Disease Epidemiology Collaboration (CKD-EPI) equation refit??without adjustment for race. Blood Venous blood specimen / Unknown 05/08/2024 6:15 AM EST 05/08/2024 6:49 AM EST us Franki Gaona MD LAB BLOOD ORDERABLES Final Resul t Performing Organization Address [facility]/ZIP Co de Phone Number [facility] [address] [place] [address], [place] [phone] * (ABNORMAL) Vitamin D 25 hydroxy (05/08/2024 6:15 AM EST) Vit D, 25-Hydroxy 19.5(L) 30.0 - 80.0 ng/mL LAB CHEMISTRY METHOD 05/08/2024 7:22 AM EST [facility] Blood Venous blood specimen / Unknown 05/08/2024 6:15 AM EST 05/08/2024 6:49 AM EST us Franki Gaona MD LAB BLOOD ORDERABLES Final Resul t Performing Organization Address City/State/[facility] de Phone Number [facility] [address] [place] [address], [place] [phone] * (ABNORMAL) BUN (05/08/2024 6:15 AM EST) BUN 38(H) 5 - 25 mg/dL LAB CHEMISTRY METHOD 05/09/2024 7:34 AM EST [facility] Blood Venous blood specimen / Unknown 05/08/2024 6:15 AM EST 05/08/2024 6:49 AM EST us Franki Gaona MD LAB BLOOD ORDERABLES Final Resul t Performing Organization Address [facility] de Phone Number [facility] [address] [place] [address], [place] [phone] * (ABNORMAL) Electrolyte panel (05/08/2024 6:15 AM EST) Pathologist [facility] Sodium 139 133 - 145 mmol/L LAB CHEMISTRY METHOD 05/09/2024 7:34 AM EST [facility] Potassium 4.1 3.5 - 5.5 mmol/L LAB CHEMISTRY METHOD 05/09/2024 7:34 AM EST [facility] Chloride 112(H) 96 - 110 mmol/L LAB CHEMISTRY METHOD 05/09/2024 7:34 AM [facility] CO2 19(L) 21 - 32 mmol/L LAB CHEMISTRY METHOD 05/09/2024 7:34 AM EST [facility] Anion Gap 8 3 - 11 LAB CHEMISTRY METHOD 05/09/2024 7:34 AM EST [facility] Blood Venous blood specimen / Unknown 05/08/2024 6:15 AM EST 05/08/2024 6:49 AM EST us Franki Gaona MD LAB BLOOD ORDERABLES Final Resul t Performing Organization Address [facility] Co de Phone Number [facility] [address] [place] [address], [place] [phone] * (ABNORMAL) Microalbumin creatinine urine ratio (04/17/2024 7:22 AM EST) Creatinine, Urine 17.0 mg/dL LAB CHEMISTRY METHOD 04/17/2024 9:22 AM EST [facility] Microalb, Ur 983.0(H) 0.0 - 29.0 mg/L LAB CHEMISTRY METHOD 04/17/2024 9:22 AM EST [facility] Microalb/Crea t Ratio 5,782(H) <30 mg/g creat LAB CHEMISTRY METHOD 04/17/2024 9:22 AM EST [facility] Urine Urine specimen obtained by clean catch procedure / Unknown 04/17/2024 7:22 AM EST 04/17/2024 8:20 AM EST us Franki Gaona MD LAB URINE ORDERABLES Final Resul t [facility] [address] [place] [address], [place] [phone] from Last 3 Months or Most Recently Relevant to Health Maintenance Insurance MEDICARE [place] [id number] Care Teams Campaign Associate Relationship Specialty Start Date End Date Franki Gaona MD [address] [place] [address] [address] KACY Franz PCP - General Internal Medicine 06/04/24
--- OUTSIDE RECORDS SUMMARY | 2024-08-06 17:14 | XMS_ITS | Encounter Summary ---
Author Organization [facility] Address [address] [facility] [facility] [address] [place] [address] Phone Care Team Providers Care Certified Phlebotomist Name Role Phone Franki Gaona DO Primary Care Provider [phone] Reason for Visit * Reason Onset Date [...] 04/17/2024 Telephone [facility] [address] [facility] [facility] [address] [place] [address] Linda Hale [address] [facility] [address] [place] [id number] LAB RESULTS ([facility] [...] Department Care Team (Late Contact Info) Description 10/09/2024 2:30 PM EDT Office Visit [facility] [address] [address] Charlene Hand ARNP [address] [address] documented as of this encounter Visit Diagnoses Not on filedocumented in this encounter Care Teams Certified Phlebotomist Relationship Specialty Start Date End Date Franki Gaona DO [address] [place] [address] DR[address] [place], [place] PCP - General Internal Medicine 01/17/23 documented as of this encounter
--- OUTSIDE RECORDS SUMMARY | 2024-08-06 17:14 | XMS_ITS | Encounter Summary ---
Author Organization [facility] Address [address] [place] [address] Care Team Providers Care Soliciting Freight Agent Name Role Phone Franki Gaona MD Primary Care Provider [phone] Encounter Details Date Type Department Care Team (Late st Contact Info) Description 05/28/2024 Lab Requisition [facility] - Main Lab [address] [place] [address] Franki Gaona MD [address] [place] [address] [address] KACY Franz Other long term care administrator (current) drug therapy Social History Tobacco Use [...] DIFFERENTIAL Routine 05/28/2024 7:08 AM EST Other care home (current) drug therapy CBC AND DIFFERENTIAL Routine 05/28/2024 7:08 AM EST Other care home (current) drug therapy HEMOGLOBIN Routine 05/28/2024 7:08 AM EST Other care home (current) drug therapy documented in this encounter Results * (ABNORMAL) CBC auto differential (05/28/2024 7:08 AM EST) WBC 8.8 4.8 - 10.8 K/[facility] LAB HEMETOLOGY METHOD 05/28/2024 9:09 AM EST [facility] LAB RBC 3.60(L) 4.50 - 5.50 M/[facility] LAB HEMETOLOGY METHOD 05/28/2024 9:09 AM [facility] LAB Hemoglobin 9.2(L) 13.5 - 17.5 g/dL LAB HEMETOLOGY METHOD 05/28/2024 9:09 AM [facility] LAB Hematocrit 30.4(L) 42.0 - 54.0 % LAB HEMETOLOGY METHOD 05/28/2024 9:09 AM [facility] LAB MCV 85.4 79.0 - 98.0 FL LAB HEMETOLOGY METHOD 05/28/2024 9:09 AM [facility] LAB MCH 25.8(L) 27.0 - 32.0 pcg LAB HEMETOLOGY METHOD 05/28/2024 9:09 AM [facility] LAB MCHC 30.3(L) 32.0 - 37.0 g/dL LAB HEMETOLOGY METHOD 05/28/2024 9:09 AM [facility] LAB RDW 16.2(H) 11.0 - 15.0 % LAB HEMETOLOGY METHOD 05/28/2024 9:09 AM [facility] LAB Platelets 348 130 - 400 K/mcL LAB HEMETOLOGY METHOD 05/28/2024 9:09 AM [facility] LAB MPV 11.0 7.0 - 11.0 FL LAB HEMETOLOGY METHOD 05/28/2024 9:09 AM [facility] LAB NRBC 0.0 <1.0 % LAB HEMETOLOGY METHOD 05/28/2024 9:09 AM [facility] LAB NRBC Absolute 0.00 <0.10 K/mcL LAB HEMETOLOGY METHOD 05/28/2024 9:09 AM [facility] LAB Neutrophils Relative 70.5 % LAB HEMETOLOGY METHOD 05/28/2024 9:09 AM [facility] LAB Lymphocytes Relative 19.2 % LAB HEMETOLOGY METHOD 05/28/2024 9:09 AM [facility] LAB Monocytes Relative 6.6 % LAB HEMETOLOGY METHOD 05/28/2024 9:09 AM [facility] LAB Eosinophils Relative 2.7 % LAB HEMETOLOGY METHOD 05/28/2024 9:09 AM [facility] LAB Basophils Relative 0.3 % LAB HEMETOLOGY METHOD 05/28/2024 9:09 AM [facility] LAB Immature Granulocytes Relative 0.7 % LAB HEMETOLOGY METHOD 05/28/2024 9:09 AM EST [facility] LAB Neutrophils Absolute 6.21 1.50 - 7.00 K/mcL LAB HEMETOLOGY METHOD 05/28/2024 9:09 AM [facility] LAB Lymphocytes Absolute 1.69 1.00 - 5.00 K/mcL LAB HEMETOLOGY METHOD 05/28/2024 9:09 AM [facility] LAB Monocytes Absolute 0.58 0.20 - 1.00 K/mcL LAB HEMETOLOGY METHOD 05/28/2024 9:09 AM EST [facility] LAB Eosinophils Absolute 0.24 0.00 - 0.50 K/mcL LAB HEMETOLOGY METHOD 05/28/2024 9:09 AM [facility] LAB Basophils Absolute 0.03 0.00 - 0.20 K/mcL LAB HEMETOLOGY METHOD 05/28/2024 9:09 AM [facility] LAB Immature Granulocytes Absolute 0.06(H) 0.00 - 0.03 K/mcL LAB HEMETOLOGY METHOD 05/28/2024 9:09 AM [facility] LAB Blood Venous blood specimen / Unknown 05/28/2024 7:08 AM EST 05/28/2024 8:41 AM EST us Franki Gaona MD LAB BLOOD ORDERABLES Final Resul t [facility]) [facility] [address] [place] [address], * (ABNORMAL) Hemoglobin (05/28/2024 7:08 AM EST) Hemoglobin 9.2(L) 13.5 - 17.5 g/dL LAB HEMETOLOGY METHOD 05/28/2024 9:09 AM EST [facility] LAB Blood Venous blood specimen / Unknown 05/28/2024 7:08 AM EST 05/28/2024 8:41 AM EST us Franki Gaona MD LAB BLOOD ORDERABLES Final Resul t [facility] [address] [place] [address], documented in this encounter Visit Diagnoses Diagnosis Other long term care administrator (current) drug therapy documented in this encounter Care Teams Soliciting Freight Agent Relationship Specialty Start Date End Date Franki Gaona MD [address] [place] [address] Dr [address] [place] PCP - General Internal Medicine 06/04/24 documented as of this encounter
--- OUTSIDE RECORDS SUMMARY | 2024-08-06 17:14 | XMS_ITS | Encounter Summary ---
Author Organization [facility] Address [address] [place] [address] Care Team Providers Care Infantry Unit Leader Name Role Phone Franki Gaona MD Primary Care Provider [phone] Encounter Details Date Type Department Care Team (Late st Contact Info) Description 06/29/2024 Lab Requisition [facility] - Main Lab [address] [place] [address] Franki Gaona MD [address] [place] [address] Dr [address] [place] Encounter for therapeutic drug level monitoring Social History Tobacco Use Types Packs/Day Years [...] Diagnosis Comments CBC WITH AUTO DIFFERENTIAL Routine 06/29/2024 7:10 AM EST Encounter for therapeutic drug level monitoring CBC AND DIFFERENTIAL Routine 06/29/2024 7:10 AM EST Encounter for therapeutic drug level monitoring documented in this encounter Results * (ABNORMAL) CBC auto differential (06/29/2024 7:10 AM EST) WBC 9.0 4.8 - 10.8 K/[facility] LAB HEMETOLOGY METHOD 06/29/2024 9:33 AM EST [facility] LAB RBC 4.80 4.50 - 5.50 M/mcL LAB HEMETOLOGY METHOD 06/29/2024 9:33 AM EST [facility] LAB Hemoglobin 12.2(L) 13.5 - 17.5 g/dL LAB HEMETOLOGY METHOD 06/29/2024 9:33 AM [facility] LAB Hematocrit 39.0(L) 42.0 - 54.0 % LAB HEMETOLOGY METHOD 06/29/2024 9:33 AM [facility] LAB MCV 82.1 79.0 - 98.0 FL LAB HEMETOLOGY METHOD 06/29/2024 9:33 AM [facility] LAB MCH 25.7(L) 27.0 - 32.0 pcg LAB HEMETOLOGY METHOD 06/29/2024 9:33 AM [facility] LAB MCHC 31.3(L) 32.0 - 37.0 g/dL LAB HEMETOLOGY METHOD 06/29/2024 9:33 AM [facility] LAB RDW 15.6(H) 11.0 - 15.0 % LAB HEMETOLOGY METHOD 06/29/2024 9:33 AM [facility] LAB Platelets 222 130 - 400 K/mcL LAB HEMETOLOGY METHOD 06/29/2024 9:33 AM [facility] LAB MPV 12.6(H) 7.0 - 11.0 FL LAB HEMETOLOGY METHOD 06/29/2024 9:33 AM [facility] LAB NRBC 0.0 <1.0 % LAB HEMETOLOGY METHOD 06/29/2024 9:33 AM [facility] LAB NRBC Absolute 0.00 <0.10 K/mcL LAB HEMETOLOGY METHOD 06/29/2024 9:33 AM [facility] LAB Neutrophils Relative 67.0 % LAB HEMETOLOGY METHOD 06/29/2024 9:33 AM [facility] LAB Lymphocytes Relative 21.0 % LAB HEMETOLOGY METHOD 06/29/2024 9:33 AM [facility] LAB Monocytes Relative 6.2 % LAB HEMETOLOGY METHOD 06/29/2024 9:33 AM [facility] LAB Eosinophils Relative 5.1 % LAB HEMETOLOGY METHOD 06/29/2024 9:33 AM EST [facility] LAB Basophils Relative 0.3 % LAB HEMETOLOGY METHOD 06/29/2024 9:33 AM [facility] LAB Immature Granulocytes Relative 0.4 % LAB HEMETOLOGY METHOD 06/29/2024 9:33 AM [facility] LAB Neutrophils Absolute 6.02 1.50 - 7.00 K/mcL LAB HEMETOLOGY METHOD 06/29/2024 9:33 AM EST [facility] LAB Lymphocytes Absolute 1.89 1.00 - 5.00 K/mcL LAB HEMETOLOGY METHOD 06/29/2024 9:33 AM [facility] LAB Monocytes Absolute 0.56 0.20 - 1.00 K/mcL LAB HEMETOLOGY METHOD 06/29/2024 9:33 AM [facility] LAB Eosinophils Absolute 0.46 0.00 - 0.50 K/mcL LAB HEMETOLOGY METHOD 06/29/2024 9:33 AM EST [facility] LAB Basophils Absolute 0.03 0.00 - 0.20 K/mcL LAB HEMETOLOGY METHOD 06/29/2024 9:33 AM [facility] LAB Immature Granulocytes Absolute 0.04(H) 0.00 - 0.03 K/mcL LAB HEMETOLOGY METHOD 06/29/2024 9:33 AM [facility] LAB Blood Venous blood specimen / Unknown 06/29/2024 7:10 AM EST 06/29/2024 7:48 AM EST us Franki Gaona MD LAB BLOOD ORDERABLES Final Resul t [facility] [address] [place] [address], documented in this encounter Visit Diagnoses Diagnosis Encounter for therapeutic drug level monitoring documented in this encounter Care Teams Infantry Unit Leader Relationship Specialty Start Date End Date Franki Gaona MD [address] [place] [address] Dr [address] KACY Franz PCP - General Internal Medicine 06/04/24 documented as of this encounter
--- OUTSIDE RECORDS SUMMARY | 2024-08-06 17:14 | XMS_ITS | Encounter Summary ---
Author Organization [facility] Address [address] [place] [address] Care Team Providers Care Automotive Brake Adjuster Name Role Phone Franki Gaona MD Primary Care Provider Encounter Details Date Type Department Care Team (Late st Contact Info) Description 06/04/2024 Lab Requisition [facility] - Main Lab [address] [place] [address] Franki Gaona MD [address] [place] [address] [address] [place], [place] Other termite exterminator (current) drug therapy Social History Tobacco Use [...] Priority Date/Time Associated Diagnosis Comments HEMOGLOBIN Routine 06/04/2024 6:31 AM EST Other termite exterminator (current) drug therapy documented in this encounter Results * (ABNORMAL) Hemoglobin (06/04/2024 6:31 AM EST) Hemoglobin 9.2(L) 13.5 - 17.5 g/dL LAB HEMETOLOGY METHOD 06/04/2024 8:06 AM EST [facility] LAB Blood Venous blood specimen / Unknown 06/04/2024 6:31 AM EST 06/04/2024 7:35 AM EST us Franki Gaona MD LAB BLOOD ORDERABLES Final Resul t [facility] LAB [address] [place] [address], documented in this encounter Visit Diagnoses Diagnosis Other residential (current) drug therapy documented in this encounter Care Teams Automotive Brake Adjuster Relationship Specialty Start Date End Date Franki Gaona MD [address] [place] [address] Dr [address] KACY Franz PCP - General Internal Medicine 06/04/24 documented as of this encounter
--- OUTSIDE RECORDS SUMMARY | 2024-08-06 17:14 | XMS_ITS | Encounter Summary ---
Author Organization [facility] Address [address] [place] [address] Care Team Providers Care Slicing Machine Operator Name Role Phone Franki Gaona MD Primary Care Provider [phone] Encounter Details Date Type Department Care Team (Late st Contact Info) Description 05/21/2024 Lab Requisition [facility] - Main Lab [address] [place] [phone] Franki Gaona MD [address] [place] [address] [address] [place] Iron deficiency anemia, unspecified Social History Tobacco [...] LAB HEMETOLOGY METHOD 05/21/2024 7:[address] [facility] LAB Blood Venous blood specimen / Unknown 05/21/2024 6:34 AM EST 05/21/2024 7:41 AM EST us Franki Gaona MD LAB BLOOD ORDERABLES Final Resul t [facility] [address] [place] [address], documented in this encounter Visit Diagnoses Diagnosis Iron deficiency anemia, unspecified documented in this encounter Care Teams Slicing Machine Operator Relationship Specialty Start Date End Date Franki Gaona MD [address] [place] [address] Dr [address] KACY Franz PCP - General Internal Medicine 06/04/24 documented as of this encounter
[2024-08-14 09:46] VITALS: BMI 25.7
[2024-08-15 07:38] VITALS: BMI 27.3
[2024-08-15 07:51] VITALS: BP 157/84; PULSE 81; RESP 16; TEMP 36.5; O2SAT 98
--- NOTE | 2024-08-15 07:56 | P.CONAN_ITS ---
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 Type 2 diabetes mellitus Hyperlipidemia Chronic kidney disease (CKD) stage G3a/A1, moderately decreased glomerular filtration rate (GFR) between 45-59 mL/min/1.73 square meter and albuminuria creatinine ratio less than 30 mg/g Constipation Insomnia Schizoaffective disorder PTSD (post-traumatic stress disorder) Epilepsy Family History Family history of problems with anesthesia: No Surgical History Surgical History (Updated 08/14/24 @ 09:53 by Brandie Driver RN) H/O colonoscopy History of Problems with Anesthesia: No Social History Social History Alcohol intake: former Patient Tobacco Use Status: Current everyday Tobacco user Tobacco use type: Cigarette Cigarettes Per Day: 4 Use of substances other than those prescribed or required for medical reasons: No Substance Use Type: Crack/Cocaine and Marijuana Are you DNR?: No Advance Directives: No Advance Directives Information Provided: Yes Meds Allergies Allergy/AdvReac Type Severity Reaction Status Date / Time No Known Allergies Allergy Verified 05/30/24 12:04 Active Medications: Current Medications Lactated Ringer's (Lr) 1,000 mls @ 100 mls/hr IVCONT .Q10H REHANA Naloxone HCl (Naloxone Hcl 0.4 Mg/Ml Vial) 0.04 mg IVPUSH Q5M PRN PRN Reason: Excessive sedation or RR < 8 Home Medications ?Medication ?Instructions ?Recorded ?Confirmed ?Last Taken ?Type amlodipine 10 mg tablet 10 mg PO DAILY 10/14/23 08/15/24 Unknown History atorvastatin 20 mg tablet 40 mg PO DAILY 10/14/23 08/15/24 Unknown History clonidine HCl 0.1 mg tablet 0.1 mg PO BID 10/14/23 03/20/24 03/20/24 07:00 History clozapine 100 mg tablet 300 mg PO DAILY 10/14/23 08/15/24 03/20/24 07:00 History diazepam 2 mg tablet 2 mg PO BID 10/14/23 08/15/24 03/20/24 07:00 History docusate sodium 100 mg capsule 100 mg PO DAILY 10/14/23 08/15/24 Unknown History (Colace) gemfibrozil 600 mg tablet 600 mg PO BID 10/14/23 08/15/24 Unknown History ketoconazole 2 % shampoo topical 10/14/23 Unknown History losartan 100 mg tablet 100 mg PO DAILY 10/14/23 08/15/24 Unknown History metformin 1,000 mg tablet 1,000 mg PO BID 10/14/23 03/16/24 Unknown History metoprolol tartrate 50 mg tablet 50 mg PO DAILY 10/14/23 08/15/24 Unknown History ondansetron HCl 4 mg tablet 4 mg PO Q8H PRN Nausea 10/14/23 03/16/24 Unknown History paliperidone palmitate 117 mg/0.75 117 mg IM Q30D 10/14/23 08/15/24 Unknown History mL intramuscular syringe (Invega Sustenna) pantoprazole 40 mg tablet,delayed 40 mg PO DAILY 10/14/23 08/15/24 Unknown History release sennosides 8.6 mg capsule (senna) 8.6 mg PO BEDTIME 10/14/23 08/15/24 Unknown History dapagliflozin propanediol 5 mg 5 mg PO DAILY 03/16/24 08/15/24 08/12/24 History tablet (Farxiga) clonidine 0.3 mg/24 hr weekly 1 patch transdermal QWEEK 05/30/24 08/15/24 Unknown History transdermal patch clozapine 50 mg tablet 50 mg PO DAILY 05/30/24 08/15/24 Unknown History epoetin mahsa 10,000 unit/mL unit subcut QWEEK 05/30/24 Unknown History injection solution (Procrit) losartan 50 mg tablet mg PO DAILY 05/30/24 Unknown History glyburide 5 mg tablet 5 mg PO DAILY 08/15/24 08/15/24 Unknown History Exam Height,Weight and Vital Signs: Height 5 ft 8 in Weight 81.5 kg Last Vital Signs Temp 97.7 F 08/15/24 07:51 Pulse 81 08/15/24 07:51 Resp 16 08/15/24 07:51 BP 157/84 H 08/15/24 07:51 Pulse Ox 98 08/15/24 07:51 O2 Del Method Room Air 08/15/24 07:51 Airway Mallampati Class: II TM Dist: >3cm Neck ROM: Full Heart: rrr Lungs: cta Assessment and Plan Assessment Anesthesia Assessment: Anesthesia Plan Discussed and Chart Reviewed Final Anesthetic Review Family History of Problems with Anesthesia: No History of Problems with Anesthesia: No NPO: Yes ASA Class: III Final Preanesthetic Review: No Changes in Pt Med Stat, Meds/Allgs Chart Reviewed and Consent Obtained/Reviewed Patient Risk: Low Procedure Risk: Low Anesthetic Plan Anesthetic Plan: MAC: Disposition: Standard PACU
[2024-08-15 08:06] LABS: Glucose, Whole Blood 107 mg/dL (60-115)
[2024-08-15] MEDS: Lactated Ringers 1,000 ML 100 ML IVCONT (08:06)
--- NOTE | 2024-08-15 08:38 | P.HPSUR_ITS ---
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 Type 2 diabetes mellitus Hyperlipidemia Chronic kidney disease (CKD) stage G3a/A1, moderately decreased glomerular filtration rate (GFR) between 45-59 mL/min/1.73 square meter and albuminuria creatinine rati) History of Previous Operations: Relevant previous surgery/procedure and date(s) (H/O colonoscopy) Allergies: Allergies Allergy/AdvReac Type Severity Reaction Status Date / Time No Known Allergies Allergy Verified 05/30/24 12:04 Review of Systems Sugical H&P ROS: Negative: Constitution, Cardiovascular, Respiratory, Neurological, Psychiatric, Hem-Onc, Allergic/Immunologic, Gastrointestinal, Genitourinary, Musculoskeletal, Integumentary, Endocrine and Eyes/Ears/Nose/Throat Exam Surgical H&P Exam: Normal: HEENT, Normal: Heart, Normal: Lungs, Normal: Extremities, Normal: Abdomen, Normal: Skin and Normal: Neurological Plan Diagnosis/Plan: Unchanged I have reviewed the history and physical and performed a pertinent physical examination on my patient. No changes have occurred unless specified. Time Spent With Patient Time: Total time managing care of this patient today ____ minutes.
--- NOTE | 2024-08-15 09:09 | HO.OPN-COLON ---
Colonoscopy Operative Note Operative Note Date of Service: 08/15/24 Narrative: Operative Information Procedure Description: Colonoscopy Indication: screening Anesthesia: MAC COLONOSCOPY Instrument: Olympus variable stiffness pediatric scope 190L Colonoscopy Monitoring: Vital signs and clinical assessment, continuous EKG monitoring, Pulse oximetry, Carbon Dioxide monitoring and blood pressure monitoring were done throughout the procedure. Colon withdrawal time was 11 minutes. Procedure: The patient was placed in the left lateral decubitis position and pre-procedure medications were administered. After a digital rectal examination of the ano-rectum, the video colonoscope was inserted into the rectum and advanced through the colon to the cecum/TI. The colonoscope was slowly withdrawn in a retrograde panoramic fashion and the colon mucosa was carefully examined including a retroflexed view of the rectum. Findings and interventions are described below. Procedure Difficulty: easy Findings: Terminal Ileum-normal Cecum:normal Right sided retroflexion- normal Ascending Colon: normal Transverse Colon -normal Descending Colon:normal Sigmoid Colon: normal Rectum: Retroflexion with small internal hemorrhoids seen, grade I Anorectum - normal Intervention: none Colon preparation: Parshall Bowel Preparation Scale Right colon; 2 Transverse colon: 2 Left colon; 2 (0 = Unprepared colon segment with mucosa not seen due to solid stool that cannot be cleared. 1 = Portion of mucosa of the colon segment seen, but other areas of the colon segment not well seen due to staining, residual stool and/or opaque liquid. 2 = Minor amount of residual staining, small fragments of stool and/or opaque liquid, but mucosa of colon segment seen well. 3 = Entire mucosa of colon segment seen well with no residual staining, small fragments of stool or opaque liquid) Impression and Post Procedure Diagnosis: internal hemorrhoids Plan: High fiber diet leaflet Avoid straining at stool, epsom salts and sitz bath, anusol supps or cream Repeat Colonoscopy in 10 years or earlier if clinically indicated Above findings were reviewed with the patient and relevant handouts were provided if indicated.
[2024-08-15 09:11] VITALS: BP 153/78; PULSE 70; RESP 16; TEMP 36.4; O2SAT 97
[2024-08-15 09:25] VITALS: BP 149/92; PULSE 74; RESP 16; O2SAT 98
== END 2024-08-15 09:50 | disposition home or self-care (01) ==
PROVIDERS: PCP Hospitalist; Visit Provider Internal Medicine Gastroenterology
PROC: 0DJD8ZZ Inspection of Lower Intestinal Tract, Via Natural or Artificial Opening Endoscopic (ICD-10-PCS; CPT 45378; principal; 2024-08-15 08:30)
DX: Z12.11 Encounter for screening for malignant neoplasm of colon (principal); K64.0 First degree hemorrhoids; K59.00 Constipation, unspecified; E11.22 Type 2 diabetes mellitus with diabetic chronic kidney disease; N18.31 Chronic kidney disease, stage 3a; R63.1 Polydipsia; G40.909 Epilepsy, unspecified, not intractable, without status epilepticus; E78.5 Hyperlipidemia, unspecified; F25.9 Schizoaffective disorder, unspecified; Z87.820 Personal history of traumatic brain injury; F43.10 Post-traumatic stress disorder, unspecified; Z79.02 Long term (current) use of antithrombotics/antiplatelets; Z79.84 Long term (current) use of oral hypoglycemic drugs; Z79.899 Other long term (current) drug therapy; F17.210 Nicotine dependence, cigarettes, uncomplicated
CPT/HCPCS: G0121; 82947; J2003; J2704

== ENCOUNTER → 2024-08-15 07:13 | Outpatient (BNV) | payer MEDICARE, MEDICAID, SELFPAY | PROVIDERS: PCP Hospitalist; Visit Provider Internal Medicine Gastroenterology | DX: Z12.11 Encounter for screening for malignant neoplasm of colon (principal); K64.0 First degree hemorrhoids | CPT/HCPCS: G0121 ==